=== PATIENT | female | born 1980 ===

== ENCOUNTER 2024-06-22 06:25 | Emergency (ER) | payer OTHER, SELFPAY ==
--- NOTE | ~2024-06-22 | XR_ITS ---
EXAMINATION: XR CHEST CLINICAL INFORMATION: cough COMPARISON: None available. TECHNIQUE: 2 views of the chest were obtained. FINDINGS: No consolidation, pleural effusion or pneumothorax. Cardiomediastinal silhouette is normal. Osseous structures are intact. XR/XR chest 2V IMPRESSION: No acute airspace disease. Electronically signed by: Papo Juarez MD 06/22/2024 08:06 AM [facility]
[2024-06-22 06:43] VITALS: BP 140/82; PULSE 105; O2SAT 95
--- NOTE | 2024-06-22 06:49 | MHC.EDTECH ---
Belligerent with all staff at [facility], Mary Elizalde & Sarah Zhu
[2024-06-22 06:57] VITALS: BP 123/84; PULSE 74; RESP 18; TEMP 36.4; O2SAT 97; BMI 35.2
--- NOTE | 2024-06-22 07:19 | ED_ITS ---
HPI - General Adult General Chief complaint: General Medical Stated complaint: A&O, n/v, dizzy, migrane x3days 10 pain Time Seen by Provider: 06/22/24 07:19 History of Present Illness ED Provider: Mehrdad MENENDEZ narrative: The patient is a 43-year-old woman who was brought to the hospital by ambulance from a [facility]. She says that she has a history of PTSD and had presented to a hospital in [place] of couple of weeks ago with an exacerbation of her mental health issues. Arrangements were made for her to stay at this [facility] which I believe is not a locked facility. Over the last couple of days the patient says that she has not been getting her medications in a timely fashion. She has also been concerned that there has been a lot of people at the facility who has been sick and she is worried about getting sick. Ultimately the facility called an ambulance this morning to send her to the emergency room. After arriving here the patient was quite agitated and upset and came very close to walking out. Initially she denied any suicidality. She later returned to her room from the waiting room stating that she felt that she was about to have a panic attack and that she was beginning to feel suicidal. The patient says she has not done anything to harm herself to this point. Related Data Home Medications ?Medication ?Instructions ?Recorded ?Confirmed tanja extract 500 mg capsule 500 mg PO DAILY 06/22/24 06/22/24 melatonin 1 mg tablet 6 mg PO BEDTIME 06/22/24 06/22/24 pantoprazole 40 mg tablet,delayed 40 mg PO DAILY acid reflux 06/22/24 06/22/24 release prazosin 2 mg capsule 2 mg PO BEDTIME 06/22/24 06/22/24 quetiapine 100 mg tablet 100 mg PO BEDTIME 06/22/24 06/22/24 quetiapine 50 mg tablet 50 mg PO TID PRN Anxiety 06/22/24 06/22/24 venlafaxine 150 mg 300 mg PO DAILY 06/22/24 06/22/24 capsule,extended release 24 hr Allergies Allergy/AdvReac Type Severity Reaction Status Date / Time ibuprofen Allergy Unknown Verified 06/22/24 06:58 naproxen Allergy Unknown Verified 06/22/24 06:58 Review of Systems 2 Review of Systems: Yes all other systems are reviewed and are negative PMFSH Social History Social History Alcohol intake: former Smoked in Last 30 Days: No Use of substances other than those prescribed or required for medical reasons: No Advance Directives: No Advance Directives Information Provided: Yes Do you have a plan to hurt others: No Plan Patient : No Physical Exam ED Vital Signs: Vital Signs - 24 hr 06/22/24 06:57 06/22/24 09:03 Temperature 97.5 F 97.5 F Pulse Rate 74 74 Respiratory Rate 18 18 Blood Pressure 123/84 123/84 Pulse Oximetry 97 97 Oxygen Delivery Method Room Air Room Air BMI result Body Mass Index 35.2 Const Other: The patient was awake and alert. She seemed somewhat angry and upset but she did not seem in any physical distress. She does not seem agitated or disoriented. HENMT Other: Face was symmetrical. Mucous membranes were moist. Eyes Other: Pupils are round equal, conjunctivae were clear Neck Other: She seemed to be moving her neck easily. Resp Other: Respiratory effort was normal Neuro Other: The patient was awake and alert. Her speech was clear. Her face was symmetrical. She moves her extremities normally and appropriately. She had a steady gait. She seemed neurologically intact. Extrem Other: No peripheral edema Psych Other: The patient seemed somewhat labile. She varied between an agitated state and an apologetic state. She was intermittently tearful. Medications Administered Discontinued Medications Generic Name Dose Route Start Last Admin Trade Name Christianoq PRN Reason Stop Dose Admin Acetaminophen 650 mg 06/22/24 08:08 06/22/24 08:09 Acetaminophen 325 Mg Tablet PO 06/22/24 08:09 650 mg ONCE ONE Administration Lorazepam 1 mg 06/22/24 08:49 06/22/24 08:59 Lorazepam 1 Mg Tablet PO 06/22/24 08:50 1 mg ONCE ONE Administration Venlafaxine HCl 300 mg 06/22/24 07:38 06/22/24 08:09 Venlafaxine Hcl Er 150 Mg Cap.Er.24h PO 06/22/24 07:39 300 mg ONCE ONE Administration Medical Decision Making Medical Decision Making [facility] Narrative: The patient is a 43-year-old woman who was brought to the hospital by ambulance from a respite facility. She has been sent to the respite facility from [facility] in [facility]. She does not seem to be having a good experience this respite facility. When she arrived here she initially was quite agitated and walked out as if she was going to leave without a full evaluation but she then felt panicky in the waiting room and returned to her room. She seemed upset and agitated. She was able to calm herself down. She is medically clear. She was placed in our psychiatric area and a care team consult was placed. She was seen by the care team who feels that she probably requires ongoing respite care and they are making referrals to other respite facilities. The patient will therefore be placed in physician observation pending disposition recommendations by the care team. Lab Data 06/22/24 08:15 06/22/24 08:15 Labs: Lab Results 06/22/24 06/22/24 Range/Units 08:15 10:08 WBC 6.9 (4.8-10.8) X10*3/uL RBC 4.39 (4.20-5.50) X10*6/uL Hgb 13.6 (12.0-16.0) g/dl Hct 39.7 (37.0-47.0) % MCV 90.4 (80.0-98.0) fL MCH 31.0 (27.0-33.0) pg MCHC 34.3 (31.0-35.0) g/dl RDW 12.6 (11.0-16.0) % Plt Count 349 (160-400) X10*3/uL MPV 9.1 L (9.4-12.3) fL Immature Gran % (Auto) 0.4 (0.0-0.4) % Neut % (Auto) 44.7 L (45-73) % Lymph % (Auto) 37.7 (20-40) % Price % (Auto) 13.7 H (2-11) % Eos % (Auto) 2.6 (0-4) % Baso % (Auto) 0.9 (0-2) % Lymph # (Auto) 2.6 (1.2-4.9) X10*3/uL Price # (Auto) 1.0 (0.1-1.2) X10*3/uL Eos # (Auto) 0.2 (0.0-0.4) X10*3/uL Baso # (Auto) 0.1 (0.0-0.2) X10*3/uL Abs Immat Gran (auto) 0.03 (0.00-0.03) X10*3/uL Absolute Neuts (auto) 3.1 (2.0-8.3) x10*3/uL Absolute Nucleated RBC 0.000 (0.0-0.012) X10*3/uL Nucleated RBC % (auto) 0.0 (0.0-0.2) /100WBC Sodium 137 (135-145) mmol/L Potassium 4.0 (3.3-5.1) mmol/L Chloride 106 (96-108) mmol/L Carbon Dioxide 23 (22-29) mmol/L Anion Gap 12 (12-20) BUN 9 (9-16) mg/dL Creatinine 0.63 (0.5-1.4) mg/dL Estim Creat Clear Calc 109.0 Estimated GFR > 60 Random Glucose 103 (60-115) mg/dL Calcium 9.5 (8.4-10.2) mg/dL Total Bilirubin 0.4 (0.0-1.0) mg/dL Direct Bilirubin 0.1 (0.0-0.5) mg/dL AST 20 (5-31) U/L ALT 16 (0-31) U/L Alkaline Phosphatase 74 (39-117) U/L C-Reactive Protein 0.16 (< or = 0.50) mg/dL Total Protein 7.1 (6.5-8.0) g/dL Albumin 4.3 (3.5-5.0) g/dL Beta HCG, Quant < 2 mIU/mL Urine Color Yellow Urine Appearance Clear Urine pH 8.5 (5.0-9.0) Ur Specific [place] 1.025 (1.005-1.025) Urine Protein Trace (Neg-Trace) mg/dL Urine Glucose (UA) Negative (Negative) mg/dL Urine Ketones Negative (Negative) mg/dL Urine Blood Negative (Negative) Urine Nitrite Negative (Negative) Ur Leukocyte Esterase Negative (Negative) Urine Opiates Screen Not Detected (Not Detect) Ur Buprenorphine Scrn Not Detected (Not Detect) ng/mL Ur Oxycodone Screen Not Detected (Not Detect) ng/mL Urine Methadone Screen Not Detected (Not Detect) ng/mL Urine Fentanyl Screen Not Detected (Not Detect) Ur Barbiturates Screen Not Detected (Not Detect) Ur Phencyclidine Scrn Not Detected (Not Detect) Ur Amphetamines Screen Not Detected (Not Detect) U Benzodiazepines Scrn Not Detected (Not Detect) Urine Cocaine Screen Not Detected (Not Detect) U Marijuana (THC) Screen Not Detected (Not Detect) Ethyl Alcohol < 10 mg/dL Influenza Type A (PCR) NEGATIVE (Negative) Influenza Type B (PCR) NEGATIVE (Negative) RSV RNA Qual (PCR) NEGATIVE (Negative) SARS-CoV-2 RNA (RT-PCR) NEGATIVE (Negative) Discharge Plan Discharge Clinical Impression: Post traumatic stress disorder (PTSD) Patient Disposition: Still a Patient Prescriptions: No Action venlafaxine 150 mg capsule,extended release 24hr 300 mg PO DAILY quetiapine 100 mg Tablet 100 mg PO BEDTIME pantoprazole 40 mg tablet,delayed release (DR/EC) 40 mg PO DAILY prazosin 2 mg capsule 2 mg PO BEDTIME melatonin 1 mg Tablet 6 mg PO BEDTIME quetiapine 50 mg tablet 50 mg PO TID PRN (Reason: Anxiety) tanja extract 500 mg Capsule 500 mg PO DAILY Print Language: Bengali
--- NOTE | 2024-06-22 07:25 | PC.NURSE ---
Pt recieved phone call from [facility] that she is being discharged. She became upset while on the phone, swearing and shouting. Was met by and declared that she needed to go. Left with a steady gait, unlabored resp, skin PWD. Denied SI.
--- NOTE | 2024-06-22 07:44 | PC.NURSE ---
Pt is back in the room, calmer, on the phone.
[2024-06-22] MEDS: Acetaminophen 325 MG TABLET 650 MG PO (08:09)
[2024-06-22] MEDS: Venlafaxine HCl ER 150 MG CAP.ER.24H 300 MG PO (08:09)
[2024-06-22 08:21] LABS: MANUAL DIFF FLAG NO
[2024-06-22 08:24] LABS: Appearance Urine Clear; Basophils Absolute Auto 0.1 X10*3/uL (0.0-0.2); Basophils Percent Auto 0.9 % (0-2); Color Urine Yellow; Eosinophils Absolute Auto 0.2 X10*3/uL (0.0-0.4); Eosinophils Percent Auto 2.6 % (0-4); Glucose Urine UA Negative (Negative); Hematocrit 39.7 % (37.0-47.0); Hemoglobin 13.6 g/dl (12.0-16.0); Imm Gran Abs Auto 0.03 X10*3/uL (0.00-0.03); Imm Gran Pct Auto 0.4 % (0.0-0.4); Leukocyte Esterase Urine Negative (Negative); Lymphocytes Absolute Auto 2.6 X10*3/uL (1.2-4.9); Lymphocytes Percent Auto 37.7 % (20-40); Mean Corpuscular HGB Conc 34.3 g/dl (31.0-35.0); Mean Corpuscular Volume 90.4 fL (80.0-98.0); Mean Platelet Volume 9.1 fL (9.4-12.3); Monocytes Percent Auto 13.7 % (2-11); Neutrophils Absolute Auto 3.1 x10*3/uL (2.0-8.3); Neutrophils Percent Auto 44.7 % (45-73); Nitrite Urine Negative (Negative); PH 8.5 (5.0-9.0); Platelet Count 349 X10*3/uL (160-400); Red Blood Count 4.39 X10*6/uL (4.20-5.50); Red Cell Distribution Width 12.6 % (11.0-16.0); Specific Gravity - Urine 1.025 (1.005-1.025); Urine Blood Negative (Negative); Urine Ketones Negative (Negative); Urine Protein Trace mg/dL (Neg-Trace); White Blood Count 6.9 X10*3/uL (4.8-10.8)
[2024-06-22 08:34] LABS: Amphetamine Screen Urine Not Detected (Not Detect); Barbiturates, Urine Not Detected (Not Detect); Benzodiazepines Screen Urine Not Detected (Not Detect); Buprenorphine Scr Not Detected (Not Detect); Cannabinoid Screen Urine Not Detected (Not Detect); Cocaine Screen Urine Not Detected (Not Detect); Fentanyl, urine Not Detected (Not Detect); Methadone Screen, Urine Not Detected (Not Detect); Opiate Screen Urine Not Detected (Not Detect); Oxycodone Screen Urine Not Detected (Not Detect); Phencyclidine Screen Urine Not Detected (Not Detect)
[2024-06-22 08:46] LABS: Alanine Aminotransferase 16 U/L (0-31); Albumin Level 4.3 g/dL (3.5-5.0); Alkaline Phosphatase 74 U/L (39-117); Anion Gap 12 (12-20); Aspartate Amino Transferase 20 U/L (5-31); Bilirubin Direct 0.1 mg/dL (0.0-0.5); Bilirubin Total 0.4 mg/dL (0.0-1.0); Blood Urea Nitrogen 9 mg/dL (9-16); C Reactive Protein 0.16 mg/dL (< or = 0.50); Calcium 9.5 mg/dL (8.4-10.2); Carbon Dioxide 23 mmol/L (22-29); Chloride 106 mmol/L (96-108); Estimated Glomerular Filt Rate > 60; Ethanol < 10 mg/dL; Glucose Random 103 mg/dL (60-115); HCG Quantitative < 2 mIU/mL; Sodium 137 mmol/L (135-145); Total Protein 7.1 g/dL (6.5-8.0)
--- NOTE | 2024-06-22 08:53 | PC.NURSE ---
Pt is now endorsing SI. states I'm spiraling downward . No plan. Is aware that we will follow safety protocols.
[2024-06-22] MEDS: LORazepam 1 MG TABLET PO (08:59)
--- NOTE | 2024-06-22 09:01 | MHC.CARE ---
Per provider, Pt is not from this area originally and has been residing in a [facility] substance use program. She reported she was not receiving her medications on time and had a disagreement with staff causing her to transport to the ED EMS. Initially Pt was attempting to walk out of the ED and when she was in the waiting room had a panic attack and came back into the ED. She then endorsed SI. HX of PTSD. 6 months sober from alcohol.
[2024-06-22 09:03] VITALS: BP 123/84; PULSE 74; RESP 18; TEMP 36.4; O2SAT 97
--- NOTE | 2024-06-22 09:49 | PC.NURSE ---
Pt has been talking with care team staff and therefore not moved to the pod. has been calm.
[2024-06-22 10:52] LABS: Influenza A PCR NEGATIVE (Negative); Influenza B PCR NEGATIVE (Negative); Resp Syncy Virus RNA Qual PCR NEGATIVE (Negative); SARS COV2 PCR INHOUSE NEGATIVE (Negative)
[2024-06-22] MEDS: QUEtiapine Fumarate 50 MG TABLET PO ×2 (14:08→19:18)
--- NOTE | 2024-06-22 14:15 | PC.NURSE ---
pt reporting increased anxiousness, medicated with PRN Seroquel per MAR
[2024-06-22] MEDS: Nicotine 21 MG PATCH.TD24 TRANSDERMA (14:38)
[2024-06-22 17:45] VITALS: BP 130/88; PULSE 89; RESP 18; TEMP 36.8; O2SAT 98
--- NOTE | 2024-06-22 18:58 | PC.NURSE ---
patient appears to remain at rest p[resently respirations are even and unlabored patient appears in no distress.
[2024-06-22 22:15] VITALS: BP 130/88
[2024-06-22] MEDS: Prazosin HCL 1 MG CAPSULE 2 MG PO (22:15)
[2024-06-22] MEDS: QUEtiapine Fumarate 100 MG TABLET PO (22:15)
[2024-06-22] MEDS: Melatonin 3 MG TABLET 6 MG PO (22:15)
--- NOTE | 2024-06-22 23:51 | MHC.CARE ---
Pt was accepted to [facility] on 06/23/24. [facility] informed the Care Team that they will call the care team office in the morning to facilitate a nurse to nurse and a time they can arrive to unit once nurse to nurse is completed. Information was passed to first shift care team staff and if [facility] has not followed up first thing in the morning the Care Team will follow up with [facility] to set up a time for a nurse to nurse and obtain further information about what time they can arrive to the unit once nurse to nurse completed. RN in pod informed. Further follow up will occur as needed moving forward.
[2024-06-23] MEDS: QUEtiapine Fumarate 50 MG TABLET PO (08:08)
[2024-06-23] MEDS: Omeprazole 20 MG CAPSULE.DR PO (08:08)
--- NOTE | 2024-06-23 08:12 | PC.NURSE ---
Pt approached RN for anxiety medication. Still endorses vague SI (no plan). Is calm/cooperative. Ate breakfast. NAD
[2024-06-23 08:41] VITALS: BP 93/60; PULSE 100; RESP 19; TEMP 37.2; O2SAT 100
[2024-06-23] MEDS: Venlafaxine HCl ER 150 MG CAP.ER.24H 300 MG PO (09:23)
--- NOTE | 2024-06-23 10:00 | PHA.MEDREC ---
Addendum entered by Haydee Verdugo RPh 06/23/24 12:53: Med rec was reviewed. Original Note: Pharmacy Consult ? Medication Reconciliation Pharmacy has completed the medication reconciliation. Called [facility] to confirm medications, they would not given the directions of her medications, only the names and doses. They told me to call the pharmacy that they get delivered from ([facility]) but they do not know which [place] location it is. There is only one [place] open on Saturdays which is not the one that delivers her meds, and their systems are not connected. Patient came in with a hand written list of her meds but I cannot confirm where this came from. Some of the medications were entered in her home list wrong and given. I changed them to the ones [facility] reported to me and is on the hand written list. She also takes ashwagandha and tanja root, doses are unknown. She also uses nicotine patches (confirmed by nurse Jesusita), [facility] reports 21 mg.
[2024-06-23] MEDS: Acetaminophen 325 MG TABLET 650 MG PO ×2 (10:08→16:39)
[2024-06-23] MEDS: Lidocaine 4 % Patch ADH..PATCH 1 PATCH TRANSDERMA (11:01)
--- NOTE | 2024-06-23 11:06 | PC.NURSE ---
Liz from [facility] respite program in [place] states that if patient is transferred then all Rx need to be sent to [facility] marisol Farfan.
[2024-06-23 14:00] VITALS: BP 92/47; PULSE 87; RESP 16; TEMP 36.8; O2SAT 95
--- NOTE | 2024-06-23 16:48 | MHC.CARE ---
Pt accepted to [facility] and will be transported via [facility] to [facility] to pick-up medications and then transported to [facility].
[2024-06-23 17:35] VITALS: BP 92/47; PULSE 87; RESP 16; TEMP 36.8; O2SAT 95
== END 2024-06-23 17:36 | disposition other institution (70) ==
PROVIDERS: Emergency Provider Emergency Medicine; PCP Family Medicine
DX: F43.10 Post-traumatic stress disorder, unspecified (principal); R45.1 Restlessness and agitation; Z03.818 Encounter for observation for suspected exposure to other biological agents ruled out; R05.9 Cough, unspecified; Z79.899 Other long term (current) drug therapy
CPT/HCPCS: 0241U; 36415; 71046; 80048; 80076; 80307; 81003; 84702; 85025; 86140; 99285; S9485

== ENCOUNTER → 2024-06-22 07:42 | Outpatient (BNV) | payer OTHER, SELFPAY | PROVIDERS: Emergency Provider Emergency Medicine; PCP Family Medicine; Visit Provider Radiology Diagnostic Radiology | DX: R05.9 Cough, unspecified (principal) | CPT/HCPCS: 71046 ==

== ENCOUNTER 2024-09-17 09:11 | Emergency (ER) | payer MEDICAID, SELFPAY ==
[2024-09-17 09:16] VITALS: BP 110/83; PULSE 90; O2SAT 96
[2024-09-17 09:21] VITALS: BP 97/56; PULSE 95; RESP 18; TEMP 36.6; O2SAT 98; BMI 36.7
[2024-09-17 09:29] VITALS: BP 97/56; PULSE 95; RESP 18; TEMP 36.6; O2SAT 98
--- NOTE | 2024-09-17 09:39 | ED_ITS ---
HPI - Medical Clearance General Chief complaint: Medical Clearance Stated complaint: RAN OUT OF MEDS Time Seen by Provider: 09/17/24 09:25 Source: patient, EMS, RN notes reviewed and old records reviewed Mode of arrival: EMS Limitations: no limitations History of Present Illness ED Provider: Leonard HPI Narrative: Patient is a 44-year-old female with history of PTSD, ADHD, alcohol use disorder in remission presenting to the ED from [facility] stating that her Adderall and amphetamine salts were not refilled by the psychiatrist there. She reports difficulty focusing during group activities, and is afraid she will become agitated if she goes without her medications for much longer. Denies any current physical complaints. Related Information Home Medications ?Medication ?Instructions ?Recorded ?Confirmed tanja extract 500 mg capsule 500 mg PO DAILY 06/22/24 06/22/24 quetiapine 100 mg tablet 100 mg PO BEDTIME 06/22/24 06/22/24 quetiapine 50 mg tablet 50 mg PO TID PRN Anxiety 06/22/24 06/22/24 venlafaxine 150 mg 300 mg PO DAILY 06/22/24 06/22/24 capsule,extended release 24 hr melatonin 3 mg tablet 6 mg PO BEDTIME 06/23/24 06/23/24 nicotine 21 mg/24 hr daily 1 patch transdermal DAILY 06/23/24 06/23/24 transdermal patch pantoprazole 20 mg tablet,delayed 20 mg PO DAILY 06/23/24 06/23/24 release prazosin 1 mg capsule 1 mg PO BEDTIME 06/23/24 06/23/24 Previous Rx's ?Medication ?Instructions ?Recorded dextroamphetamine-amphetamine ER 20 mg PO .noon #7 caps 09/17/24 20 mg 24hr capsule,extend release (Adderall XR) dextroamphetamine-amphetamine ER 30 mg PO QAM #7 caps 09/17/24 30 mg 24hr capsule,extend release (Adderall XR) Allergies Allergy/AdvReac Type Severity Reaction Status Date / Time ibuprofen Allergy Unknown Verified 09/17/24 09:28 naproxen Allergy Unknown Verified 09/17/24 09:28 Review of Systems Review of Systems: As per HPI Yes all other systems are reviewed and are negative Constitutional: Constitutional: Reports as per HPI PMFSH Social History Social History Alcohol intake: former Advance Directives: No Advance Directives Information Provided: No Do you have a plan to hurt others: No Plan Physical Exam Vital Signs: Vital Signs: Last Vital Signs Temp 98 F 09/17/24 09:29 Pulse 95 09/17/24 09:29 Resp 18 09/17/24 09:29 BP 97/56 L 09/17/24 09:29 Pulse Ox 98 09/17/24 09:29 O2 Del Method Room Air 09/17/24 09:29 BMI result Body Mass Index 36.7 Vital signs have been reviewed and appear to be correct. Blood pressure normal. Heart rate normal. Respiratory rate normal. Temperature normal. Oxygen saturation normal. Const: General: cooperative, healthy appearing and no acute distress Orientation/consciousness: oriented to person, oriented to place, oriented to time and patient oriented x3 Limitations: no limitations HEENT: Head: Yes normocephalic and Yes atraumatic Ears: external ears normal General nose exam: Normal external nose present Face and sinus: Yes face symmetric Mouth: oropharynx normal and moist mucous membranes Throat: Yes uvula midline Eyes: Pupils: Equal, round and reactive pupils present Neck: Neck: Yes normal visual inspection and Yes supple Resp: Effort & Inspection: normal respiratory effort and able to speak in complete sentences Auscultation: clear to auscultation bilaterally Cardio: Rate: regular rate Rhythm: regular rhythm Heart sounds: S1 normal heart sound present and S2 normal heart sound present GI: Palpation (GI): Soft to palpation and nontender Auscultation: no rmoactive bowel sounds : General: Yes no CVA tenderness Back/Spine/Pelvis: Back: no CVA tenderness Skin: General skin exam: elasticity normal and turgor normal Neuro: General: oriented to person, oriented to place, oriented to time, patient oriented x3, moves all extremities, no focal motor deficits and CN's II- XI intact bilaterally Cranial nerves: Yes Equal, round and reactive pupils present Cognition (Neuro): normal cognition Extrem: General: Yes full ROM, Yes no pedal edema and Yes no calf tenderness Psych: Mental Status: mental status grossly normal Affect: normal affect Thought process: Normal thought process present Medical Decision Making Medical Decision Making MDM Narrative: Patient is a 44-year-old female with history of PTSD, ADHD, alcohol use disorder in remission presenting to the ED from [facility] stating that her Adderall and amphetamine salts were not refilled by the psychiatrist there. On exam patient is awake, A+Ox3, VS WNL, afebrile, normal neurological exam without focal deficits, physical exam findings as above. Given reported symptoms and physical exam findings, initial differential includes but is not limited to ADHD, medication refill. Review of REHAB DIRECTOR report shows that patient has been consistently prescribed Adderall for the past few months. Will medicate in the ED and send prescription for one week to pharmacy. Discussed with patient that she will need to speak to the psychiatrist at [facility] to continue her pre scription. Patient verbalized understanding of and agreement with this. Return precautions discussed. Patient verbalized understanding of and agreement with plan. Differential Diagnosis Differential Diagnoses: The differential diagnosis associated with the presentation includes As per [facility] External Record Review External record reviewed: Inpatient record, Office record and Outpatient record Prescription Management I considered prescription management with: Other Discharge Plan Discharge Clinical Impression: ADHD Patient Disposition: Home, Self-Care Instructions: ADHD in Adults (DC) Additional Instructions: You were given your am dose of Adderall in the emergency department today. A prescription for your regularly prescribed Adderall was sent to the pharmacy for a one week supply. Discuss this with your psychiatrist to continue the prescription at [facility]. Return to the emergency department with new or concerning symptoms. Prescriptions: New dextroamphetamine-amphetamine [Adderall XR] 30 mg capsule,extended release 24hr 30 mg PO QAM Qty: 7 0RF Rx Instructions: Partial Fill upon patient request. dextroamphetamine-amphetamine [Adderall XR] 20 mg capsule,extended release 24hr 20 mg PO .noon Qty: 7 0RF Rx Instructions: Partial Fill upon patient request. No Action venlafaxine 150 mg capsule,extended release 24hr 300 mg PO DAILY quetiapine 100 mg Tablet 100 mg PO BEDTIME quetiapine 50 mg tablet 50 mg PO TID PRN (Reason: Anxiety) tanja extract 500 mg Capsule 500 mg PO DAILY melatonin 3 mg Tablet 6 mg PO BEDTIME prazosin 1 mg Capsule 1 mg PO BEDTIME pantoprazole 20 mg Tablet,Delayed Release (Dr/Ec) 20 mg PO DAILY nicotine 21 mg/24 hr Patch 24 Hour 1 patch TRANSDERMAL DAILY Print Language: Citizen [place]
--- OUTSIDE RECORDS SUMMARY | 2024-09-17 09:52 | XMS_ITS | Encounter Summary ---
Author Organization [facility] Address [phone] [place] [address] Care Team Providers Care [facility] Psychiatrist Name Role Phone Pcp, Unknown Primary Care Provider Unavailabl e Reason for Referral * Outpatient Procedure - Closed Specialty Diagnoses / Procedures Referred By Contac t Referred To Contact Radiology Diagnoses Endometriosis Pelvic pain Procedures US Pelvis Armida Londono MD [address] [place] [address], [address] [address] Email: [email or web address] Referral ID Status Reason Start Date Expiration Date Visits Re quested Visits Authorized [id number] Closed 09/07/2024 1 1 Reason for Visit * Reason Comments New Patient Encounter Details Date Type Department Care Team (Late st Contact Info) Description 09/07/2024 2:00 PM EST Office Visit [facility] [address] [place] [id number] Armida Londono MD [address] [place] [address], [address] [phone] [email or web address] Pelvic pain (Primary Dx); Breast cancer screening by mammogram; Endometriosis Social History Tobacco Use Types Packs/Day Years Used Date Smoking Tobacco: Former Cigarettes Passive Smoke Exposure: Current Tobacco Cessation:Counseling Given: Not Answered Education Answer Date Recorded Are you interested in more education? Not on lenny e 08/07/2024 Are you concerned about learning? Not on file 08/07/2024 No 08/07/2024 No 08/07/2024 Digital Access Answer Date Recorded No 08/07/2024 No 08/07/2024 Reliable internet access at home? Not on file 08/07/2024 Device with a working camera? Not on file Sex and Gender Information Value Date Recorded Sex Assigned at Not on file Gender Identity Not on file Sexual Orientation Not on file documented as of this encounter Last Filed Vital Signs Vital Sign Reading Time Taken Comments Blood Pressure 120/72 09/07/2024 1:58 PM EST Pulse - - Temperature - - Respiratory Rate - - Oxygen Saturation - - Inhaled Oxygen Concentration - - Weight 85.6 kg (188 lb 12.8 oz) 09/07/2024 1:58 PM EST Height - - Body Mass Index - - documented in this encounter Progress Notes * Armida Londono MD - 09/07/2024 2:00 PM EST Encounter Date: 09/07/2024 Chief Complaint: Chief Complaint Patient presents with New Patient Subjective: Maia San is a 43 y.o. who presents to establish [employer]IL[employer] care. Patient with a history of chronic pelvic pain and endometriosis. Medical History Patient Active Problem List Diagnosis Endometriosis Pelvic pain Past Medical History: Diagnosis Date Endometriosis Fibroids Iron deficiency anemia PTSD (post-traumatic stress disorder) Past Surgical History: Procedure Laterality Date APPENDECTOMY LAPAROTOMY 2014 LAPAROTOMY 2017 Social History Socioeconomic History Marital status: Single Spouse name: Not on file Number of children: Not on file Years of education: Not on file Highest education level: Not on file Occupational History Not on file Tobacco Use Smoking status: Former Types: Cigarettes Passive exposure: Current Smokeless tobacco: Not on file Vaping Use Vaping status: never used Substance and Sexual Activity Alcohol use: Not on file Drug use: Never Sexual activity: Yes Partners: Male control/protection: None Other Topics Concern Not on file Social History Narrative Not on file OB History Para Term AB Living 9 8 1 SAB IAB Ectopic Multiple Live Births 6 1 # Outcome Date GA Lbr Austyn/2nd Weight Sex Type Anes PTL Lv 9 AB 8 AB 7 Vag-Spont ALEJANDRO 6 SAB 5 SAB 4 SAB 3 SAB 2 SAB 1 SAB Menstrual History No LMP recorded (lmp unknown). Patient is premenopausal. Current Outpatient Medications: ADDERALL XR 20 mg 24 hr capsule, Take 20 mg by mouth 2 (two) times a day., Disp: , Rfl: , Last Dispense: Unknown (patient-reported) ADDERALL XR 30 mg 24 hr capsule, , Disp: , Rfl: , Last Dispense: Unknown (patient-reported) norethindrone (MICRONOR) 0.35 mg tablet, Take 0.35 mg by mouth., Disp: , Rfl: , Last Dispense: Unknown (patient-reported) OLANZapine (ZYPREXA) 10 MG tablet, , Disp: , Rfl: , Last Dispense: Unknown (patient-reported) prazosin (MINIPRESS) 2 MG capsule, , Disp: , Rfl: , Last Dispense: Unknown (patient-reported) traMADoL (ULTRAM) 50 mg tablet, Take 1 tablet every 6 hours by oral route for 10 days., Disp: , Rfl: , Last Dispense: Unknown (patient-reported) venlafaxine (EFFEXOR-XR) 150 MG 24 hr capsule, , Disp: , Rfl: , Last Dispense: Unknown (patient-reported) Allergies Allergen Reactions Ibuprofen Nausea And Vomiting Naproxen Nausea And Vomiting Objective: BP 120/72 Wt 85.6 kg (188 lb 12.8 oz) LMP (LMP Unknown) Gen: Alert, cooperative. Well-appearing on today's exam Assessment/Plan: 43 y.o. with: Problem List Items Addressed This Visit Endometriosis Current Assessment & Plan Patient with history of laparoscopy proven stage 1 endometriosis Patient's last pelvic US was done in 2022 and showed a 1 cm fibroid Prior imaging and [employer] records reviewed Patient requests US to follow up on fibroid/endometriosis and pelvic pain Patient will return for follow up at annual [employer] exam Relevant Orders US Pelvis Pelvic pain Relevant Orders US Pelvis Other Visit Diagnoses Breast cancer screening by mammogram Relevant Orders Mammogram Screening (Bilateral) Return for Annual physical. Armida Londono MD documented in this encounter Miscellaneous Notes * Assessment & Plan Note - Armida Londono MD - 09/07/2024 2:30 PM ESTAssociated Problem(s): Endometriosis Patient with history of laparoscopy proven stage 1 endometriosis Patient's last pelvic US was done in 2022 and showed a 1 cm fibroid Prior imaging and [employer] records reviewed Patient requests US to follow up on fibroid/endometriosis and pelvic pain Patient will return for follow up at annual [employer] exam documented in this encounter Plan of Treatment Upcoming Encounters Date Type Department Care Team (Late st Contact Info) Description 09/07/2024 Procedure Pass [address] [place] [address] 10/16/2024 11:30 AM EDT Appointment [facility] [place] [address] [place] [address] Armida Londono MD [address] [place] [address], [address] [place] [id number] [email or web address] 10/16/2024 12:30 PM EDT Office Visit [facility] [address] [place] [address] [place] [address] Armida Londono MD [address] [place] [address], [address] [place] [address] [email or web address] 03/01/2025 1:00 PM EDT Office Visit [facility] [address] [place] [address] Anila Prescott MD [address] [place] [address] [address] [place] [address] [email or web address] 03/08/2025 12:45 PM EDT Appointment [address] [place] [address] Armida Londono MD [address] [place] [address], [address] [place] [address] [email or web address] Scheduled Orders Name Type Priority Associated Diagnoses Orde r Schedule Mammogram Screening (Bilateral) Imaging Routine Breast cancer screening by mammogram Expected: 09/07/2024, Expires: 09/07/2025 US Pelvis Imaging Routine Endometriosis Pelvic pain Expected: 09/07/2024, Expires: 12/05/2024 documented as of this encounter Visit Diagnoses Diagnosis Pelvic pain- Primary Breast cancer screening by mammogram Endometriosis Endometriosis, site unspecified documented in this encounter Care Teams [facility] Facility Psychiatrist Relationship Specialty Start Date End Date Pcp, Unknown PCP - General 08/07/24 documented as of this encounter Additional Source Comments The information contained in this document represents components of the legal health record. It is not the complete legal health record.[facility]
--- OUTSIDE RECORDS SUMMARY | 2024-09-17 09:52 | XMS_ITS | Continuity of Care Document ---
Author Organization [facility] Address [address] [address] Phone Care Team Providers Care Service Desk Analyst Name Role Phone YiJudit Hodo Unavailable Unavailab le Allergies, Adverse Reactions, Alerts Substance Reaction Status Criticality NSAIDS (Non-Steroidal Anti-I nflammatory Drug) Gastrointestinal ulcer Active No Information Medications Medication Instructions Dosage Effective Dates (start - stop) Status Comments nicotine 21 mg/24 hr daily transdermal patch apply 1 patch by transdermal route every day and remove at bedtime 21 MG - Active venlafaxine ER 75 mg capsule,extended release 24 hr take 1 capsule by oral route every day with food 75 MG - Active quetiapine 100 mg tablet take 1 tablet by oral route every day 100 MG - Active oxycodone 10 mg tablet take 1 tablet by oral route QID - Active Adderall XR 30 mg capsule,extended release take 1 capsule by oral route every day in the morning upon awakening 30 MG - Active baclofen 10 mg tablet take 1 tablet by o ral route 3 times every day 10 MG - Active tanja extract 500 mg capsule 1 capsule daily - Active Procedures Procedure Date PREV VISIT NEW AGE 40-64 Advance Directives Directive Yes / No Effective Date File Name No Information Encounters Encounter Description Practice Location Reason(s) For Visit Diagnoses Date Provider Providers Copied on Encounter [facility], [address], [id number], tel:[phone] [facility] No Information 2 OZafar Spain. [address] [place] [address], [id number] , [place]. tel:[phone] PREV VISIT NEW AGE 40-64 [facility] [place], [facility], [place], [place], [id number], [place] tel:[phone] [facility] Preventive exam (chief complaint) SmokingIron deficiency anemia due to chronic blood lossScreening for diabetes mellitusAttention deficit hyperactivity disorder (ADHD), predominantly hyperactive typeScreening mammogram for breast cancerMixed anxiety and depressive disorderNeuropath yEncounter for routine adult health examination without abnormal findings 2 O'Hagan Judit. [address] [place] [address], [place], [place], [id number] , [place]. tel:[phone] Family History Family Member Type Diagnosis Age At Onset Maternal grandmother Problem Heart disease Sister Problem (finding) Father Problem (finding) Sister Problem Alive and well Paternal grandmother Problem Dementia Mother Problem (finding) Payers Payer name Insurance type Covered green party ID Authoriza tion(s) No Information Social History Type Description Quantity Date Captured Comments Sex Female Smoking Status No Information Gender Identity Female Chief Complaint And Reason For Visit No Information Reason For Referral Reason For Referral No Information Plan Of Treatment Date Type Action Status Goal Tobacco cessation counseling completed Referral Ordered: Radiology -Radiotherapy (related to Screening mammogram for breast cancer) ordered Referral Referred To: Radiology Ordered: Referrals: Radiotherapy. Radiology ordered Future Order: Radiology Order Ma mmogram (Screen); Bilat, 2-view study of each breast, incl computer-aided detection when performed ([id number]), Ordered on: Ordered Future Order: Lab Order BASIC ME TABOLIC PANEL ([id number]), Sent on: Sent Future Order: Lab Order CBC (INC LUDES DIFF/PLT) ([id number]), Sent on: Sent Future Order: Lab Order HEMOGLOB IN A1C ([id number]), Sent on: Sent Future Order: Lab Order VITAMIN D,25-OH,TOTAL,IA ([id number]), Collected on: , Sent on: Sent History Of Present Illness Encounter Date Complaint History Of Prese nt Illness Preventive exam : 9. Rosalie ty: Term: 1. induced: 4. spontaneous: 4. Negative for dysmenorrhea and menorrhagia. Negative for: breast discharge, breast lump(s) and breast pain. Positive for: breast self exam.The client is not post-menopausal. Negative for Hormone replacement therapy. Menopausal symptoms negative for: hot flashes, insomnia, night sweats and vaginal dryness. There are no associated symptoms. Pertinent negatives include abnormal bleeding (hematology), abnormal vaginal bleeding, anxiety, decreased libido, depression, difficulty falling sleep, dyspareunia, history of infertility, nocturia, sexual dysfunction, sleep disturbances, urinary incontinence, urinary urgency, vaginal discharge and vaginal itching. Client does not take calcium. Client does not take Vitamin D. Client does not take multivitamins. Client does not take Folic acid. The client does use tobacco. Tobacco cessation has been discussed. The client has not been exposed to passive smoke. The client has not been exposed to passive vaping. Functional Status Date Functional Assessmen t No Information Instructions Date Instruction Additional Infor mation Notes mild symptoms, not on meds, no falls, no tx desired Related to Neuropathy On venlafaxine 75mg QD, Quetiapine 100mg QHS-not feeling controlled as she is awaiting her psych to give her adderall and he is reluctant according to her. She notes her ADHD makes it so she feels anxious, thought it is not really her anxiety but her ADHD. Related to Mixed anxiety and depressive disorder Ordered as has never had one. Re lated to Screening mammogram for breast cancer Had been taking Adde rall XR 30mg QD, has psych who plans to give her the meds, but has been off for 11 months and she is struggling without them. EKG ordered given cardiac risks with age as baseline. EKG without concenring findings. Related to Attention deficit hyperactivity disorder (ADHD), predominantly hyperactive type Labs ordere Related to Farzaneh arriaza for diabetes mellitus Hx anemia s/p bleedi ng ulcers from NSAID use, resolved. CBC ordered Related to Iron deficiency anemia due to chronic blood loss 1 ppd x 1 year, had quit for 3 years, started again while under alot of stress. Would like to quit, patches started at 21mg QD x 4 weeks, rtc for f/u and will need 14mg QD x 4 weeks following that. Related to Smoking Assessments Type Assessment Date No Information Patient Care Teams Name Effective Dates (start - stop) Status Members No Information
--- OUTSIDE RECORDS SUMMARY | 2024-09-17 09:52 | XMS_ITS | Continuity of Care Document ---
Author Organization [facility] Address [address] [place] [address] Phone Care Team Providers Care Printing Grey Cloth Tender Name Role Phone SONALI DUMONT MD, MOISES Unavailable Unavailab le Advance Directives Directive Yes / No Effective Date File Name No Information Encounters Encounter Description Practice Location Reason(s) For Visit Diagnoses Date Provider Providers Copied on Encounter [facility], [address], [place], [address], [place] tel:[phone] [facility] No Information 8 MD MOISES RAE. [address] [address], [place], [id number] , [place]. tel:[phone] Referring Provider: LINCOLN AGUIRRE, [address] [place], [address]. tel:[phone] Family History Family Member Type Diagnosis Age At Onset No Information Payers Payer name Insurance type Covered green party ID Authordayaa sena(s) [facility] [id number] Social History Type Description Quantity Date Captured Comments Sex Female Smoking Status No Information Chief Complaint And Reason For Visit No Information History Of Present Illness Encounter Date Complaint History Of Prese nt Illness No Information Instructions Date Instruction Additional Infor mation No Information Assessments Type Assessment Date No Information
--- OUTSIDE RECORDS SUMMARY | 2024-09-17 09:52 | XMS_ITS | Encounter Summary ---
Author Organization [facility] Address [address] [place] [address] Care Team Providers Care Sales Account Representative Name Role Phone Ozzy Saucedo MD Primary Care Provider [phone] [facility] Unavailable Juan A Suresh MD Primary Care Provider [phone] Encounter Details Date Type Department Care Team (Late st Contact Info) Description 07/02/2024 Telephone [facility] [address] [place] [address] [phone] Provider, [facility] Social History Tobacco Use Types Packs/Day Years Used Date Smoking Tobacco: Every Day Cigarettes Smokeless Tobacco: Never Comments:She is interested i n quitting, considering when. Alcohol Use Standard Drinks/Week Comments Not Currently 0 (1 standard drink = 0.6 oz pur e alcohol) PHQ-2 Answer Date Recorded PHQ-2 Score 0 06/27/2023 Intimate Partner Violence Answer Date R ecorded Fear of Current or Ex-Partner Not on file Emotionally Abused Not on file 03/16/2023 Physically Abused Not on file 03/16/2023 Sexually Abused Not on file 03/16/2023 Feel Safe at Home Not on file 03/16/2023 Comments No Sex and Gender Information Value Date Recorded Sex Assigned at Not on file Legal Sex Female 3:59 PM EDT Gender Identity Not on file Sexual Orientation Not on file documented as of this encounter Miscellaneous Notes * Telephone Encounter - Lori Benavides - 07/02/2024 3:07 PM EST Pt needs to call [facility] before PT 1 can be done they do not have current address. Jonjungleila elizabeth for PT 07/02/24 Received request from patient for one PT-1 form. Request type: New form Name: NPI Facility: [facility] Address: [facility] [id number] Patient's [facility] ID number: Confirm the patient's address: [address] [address] [facility] [address] Is the treating facility within the member's locality: no How long will the [facility] member require these services? 12mo 4x month Is there a medical reason why the member (or guardian if accompanying a minor) is unable to use public transportation? Yes: Is a wheelchair van needed? no Is an escort accompanying the member for assistance with ambulation or to accompany a minor? no Is a service animal needed? no Does member carry self administered Oxygen? no Specify other transportation needs: I have confirmed that the member does not have access to public or personal transportation resources including friends or family to provide them with transportation: yes I have confirmed that the treating provider (destination is active [facility] provider. I have confirmed that the member is traveling to obtain medical services covered under the members coverage type: yes I have confirmed that the requested duration and frequency of transportation services are consistent with scheduled member appointments: yes Informed patient that this would take a minimum of 2 business days to complete. [facility] for completion. documented in this encounter Plan of Treatment Not on file documented as of this encounter Goals Goal Patient Goal Type Associated Problems Recent Progress Patient-Stated? Author Quit smoking / using tobacco Lifestyle Elena Wilkins MD Note: Smoking can cause cancer, heart attacks, hardening of the arteries, bronchitis, emphysema, cough, shortness of breath, wrinkles, and premature aging and premature births. Some benefits of quitting smoking begin right away. Your risk of heart disease begins to decrease as soon as you quit. Your general health may also start to improve immediately because you are not irritating your lungs and more oxygen gets to your body organs. Your blood circulation is likely to get better. Other benefits may include fewer colds and lung infections as well as reduced risk of high blood pressure, stroke, and cancer. Interested in quitting smoking? Discuss medication options with your provider or contact the Quit To Win program at . Any insurance accepted. Quit smoking resources-[email or web address] documented as of this encounter Visit Diagnoses Not on filedocumented in this encounter Care Teams Sales Account Representative Relationship Specialty Start Date End Date Ozzy Saucedo MD [address] [place] [address] PCP - General Family Medicine 12/07/22 08/05/24 Provider, [facility] PCP - Backup PCP 12/09/22 Juan A Suresh MD [address] [facility] [place] [address] PCP - General 08/06/24 documented as of this encounter
--- OUTSIDE RECORDS SUMMARY | 2024-09-17 09:52 | XMS_ITS | Clinical Summary ---
Author Organization [facility] Address [address] [id number] Care Team Providers Care Manager Land Name Role Phone Provider, Apcc Unavailable Unavailable Juan A Suresh MD Primary Care Provider [phone] Allergies Active Allergy Reactions Criticality Noted Date Comments Ibuprofen Nausea/GI Upset 05/20/2022 Naproxen Nausea/GI Upset 05/20/2022 Medications * This document contains information received from the source organization and may not represent a complete record from that organization. Venlafaxine HCl (EFFEXOR-XR) 75 MG 24 hr capsule TAKE 1 CAPSULE BY MOUTH DAILY DIRECTED 2 Active ADDERALL XR, 30MG, 30 MG 24 hr capsule 3 Active Venlafaxine HCl ER (EFFEXOR-XR) 37.5 MG 24 hr capsule 3 Active QUEtiapine Fumarate (SEROquel) 25 MG tablet 3 Active Nicotine (NICODERM CQ) 7 MG/24HR 3 Active Norethindrone, Contraceptive, (Ghada) 0.35 MG tablet Take one tablet (0.35 mg total) by mouth 1 (one) time each day. 28 tablet 11 3 10/22/19 25 Active Fluconazole (DIFLUCAN) 150 MG tablet 4 Active Folic Acid (FOLVITE) 1 MG tablet 4 Active HYDROCORTISONE, RECTAL, (ANUSOL-HC) 2.5 % rectal cream APPLY RECTALLY TO THE AFFECTED AREA EVERY 12 HOURS NEEDED FOR HEMORRHOIDS 4 Active hydrOXYzine HCl (ATARAX) 25 MG tablet Take 25 mg by mouth 2 (two) times a day if needed for anxiety. 4 Active Prazosin HCl (MINIPRESS) 2 MG capsule 4 Active Prazosin HCl (MINIPRESS) 1 MG capsule 4 Active Pantoprazole Sodium (PROTONIX) 40 MG EC tablet TAKE 1 TABLET BY MOUTH DAILY FOR STOMACH ACID OR REFLUX 4 Active Omeprazole (PriLOSEC) [address] capsule TAKE 1 TABLET BY MOUTH DAILY FOR GERD 4 Active OLANZapine (ZyPREXA) 10 MG tablet 4 Active hydrOXYzine HCl (ATARAX) 50 MG tablet Take 100 mg by mouth. 4 Active Clotrimazole (LOTRIMIN) 1 % vaginal cream Insert into the vagina. 4 Active ADDERALL XR, 20MG, 20 MG 24 hr capsule Take 20 mg by mouth 2 (two) times a day. 4 Active Amphetamine-Dex troamphetamine (ADDERALL) 20 MG tablet 4 Active Nicotine (NICODERM CQ) 21 MG/24HR 4 Active QUEtiapine Fumarate (SEROquel) 100 MG tablet TAKE 1 TABLET BY MOUTH AT BEDTIME MAY TAKE ADDITIONAL 1/4 TO 1/2 TABLET TWICE DAILY NEEDED FOR ANXIETY 4 Active QUEtiapine Fumarate (SEROquel) 200 MG tablet TAKE 1 TABLET BY MOUTH EVERY EVENING DIRECTED 4 Active QUEtiapine Fumarate (SEROquel) 50 MG tablet TAKE 3 TABLETS BY MOUTH DAILY AT BEDTIME FOR MOOD 4 Active QUEtiapine Fumarate 150 MG Tab 4 Active Venlafaxine ER (EFFEXOR-XR) 150 MG 24 hr capsule 4 Active Baclofen (LIORESAL) 10 MG tablet TAKE 1 TABLET BY MOUTH THREE TIMES DAILY WITH FOOD OR MILK Active traMADol HCl (ULTRAM) 50 MG tablet Take 1 tablet every 6 hours by oral route for 10 days. Active Active Problems Problem Noted Date Diagnosed Date Alcohol abuse 02/17/2024 Overview (02/17/2024): 02/17/2024 received records [facility] Jason richter (faxed) per records patient in [facility] Detox 02/07 and Ativan taper done, went to [facility] 02/15/2024 for feeling like about to have a panic attack. Discharged from their ED due to verbally abusive and uncooperative 3:49AM 02/16/2024. Then it appears per chart review patient went to [facility] 02/16/2024 20:45 [place], apparent alcohol intoxication and discharged advised to follow-up with PCP and seek outpatient treatment for this 02/17/2024 3:32AM. Asking nursing to triage and schedule appointment as soon as possible with [facility]. Endometriosis 06/27/2023 Overview (06/27/2023): 06/27/2023 Pt is scheduled to see OB at [facility] next week. hx of laporoscopy 2014 & 2017, stage 1 Endometriosis. PTSD (post-traumatic stress disorder) 06/27/2023 Overview (06/27/2023): Her mother was murdered when she was 11. PTSD from that. Sees weekly counselor. Cervical radiculopathy 06/27/2023 Overview (06/27/2023): 06/27/2023 -patient reported. She states that when she lived in [place] she had imaging done on her cervical spine, went to physical therapy which did not help her, saw the chiropractor which was helpful, was seeing a pain specialist, and was getting pain injections into her neck as well. We currently have no records of these at this time, will update cervical x-ray at this visit. Patient offered physical therapy, but she states that she does not want to do that because it was not effective for her in the past. Cervical cancer screening 05/24/2022 Overview (05/24/2022): Pap/hpv=neg/neg 2021 Rpt q3yrs Encounters Date Type Department Care Team Description 07/02/2024 Telephone [facility] [address] [place] [id number] Provider, [facility] from Last 3 Months Family History Medical History Relation Name Comments No Known or Significant Medical History Father No Known or Significant Medical History Maternal grand father Heart Disorder Maternal grandmother anxiety Maternal grandmother No Known or Significant Medical History Mother No Known or Significant Medical History Paternal grand father No Known or Significant Medical History Paternal grand mother No Known or Significant Medical History Sister No Known or Significant Medical History Son Relation Name Status Comments Father Maternal grandfather Maternal grandmother Mother Paternal grandfather Paternal grandmother Sister Son Alive Social History Tobacco Use Types Packs/Day Years Used Date Smoking Tobacco: Every Day Cigarettes Smokeless Tobacco: Never Tobacco Cessation:Ready to Q uit: Not Asked; Counseling Given: Not Answered Comments:She is interested in quitting, considering when. Alcohol Use Standard Drinks/Week [...] on file Sexual Orientation Not on file Last Filed Vital Signs Vital Sign Reading Time Taken Comments Blood Pressure 122/78 07/14/2023 2:24 PM EST Pulse 85 06/27/2023 3:56 PM EST Temperature - - Respiratory Rate - - Oxygen Saturation - - Inhaled Oxygen Concentration - - Weight 72.6 kg (160 lb) 07/14/2023 2:24 PM EST Height 156.2 cm (5' 1.5 ) 07/14/2023 2:24 PM EST Body Mass Index 29.74 07/14/2023 2:24 PM EST Plan of Treatment Health Maintenance Due Date Last Done Comments DTaP/Tdap/Td (1 - Tdap) 1998 Hep B (1 of 3 - 19+ 3-dose series) 1999 Pneumococcal (1 of 2 - PCV) 1999 Mammogram/Breast Imaging 2020 COVID-19 Vaccine (1 - season) 2024 Influenza (#1) 2024 Pap Smear 05/20/2027 05/20/2022 Zoster (Shingrix) (1 of 2) 2030 HPV Testing Discontinued 05/20/2022 Hepatitis C Screening Completed 05/20/2022, 022 Eye/Retina Exam Discontinued 08/18/2022, 08/01, 08/18/2022, Additional history exists Physical Discontinued 06/27/2023 LDL Cholesterol Discontinued 05/31/2024, 06/27/2023 HPV Vaccine Aged Out No longer eligi ble based on patient's age to complete this topic Hep A Aged Out No longer eligi ble based on patient's age to complete this topic Hib Aged Out No longer eligi ble based on patient's age to complete this topic Meningococcal ACWY Aged Out No longer eligible based on patient's age to complete this topic Goals Goal Patient Goal Type Associated Problems [...] at . Any insurance accepted. Quit smoking resources-[email or web address] Procedures * Due to [place] state law, this organization might not be sharing negative HIV tests. Procedure Name Priority Date/Time Associated Diagnosis Comments LIPID PANEL WITH REFLEX TO DIRECT LDL Routine 06/27/2023 4:50 PM EST Routine history and physical examination of adult THINPREP TIS PAP AND HPV MRNA E6/E7, CHLAMYDIA/N.GONORRH OEAE Routine 05/20/2022 3:49 PM EDT Cervical cancer screening HEPATITIS C AB WITH REFLEX TO RNA PCR, SERUM Routine 05/20/2022 1:53 PM EDT Screen for STD (sexually transmitted disease) from Last 3 Months or Most Recently Relevant to Health Maintenance Results * Due to [place] state law, this organization might not be sharing negative HIV tests. * (ABNORMAL) LIPID PANEL WITH REFLEX TO DIRECT LDL (06/27/2023 4:50 PM EST) Cholesterol 210(H) <200 mg/dL [facility] HDL Cholesterol 78 > OR = 50 mg/dL [facility] Triglyceride 84 <150 mg/dL [facility] LDL Cholesterol 114(H) mg/dL (calc) [facility] Comment: Reference range: <100 Desirable range <100 mg/dL for primary prevention; ?? <70 mg/dL for patients with CHD or diabetic patients with > or = 2 CHD risk factors. LDL-C is now calculated using the Ko-Kari calculation, which is a validated novel method providing better accuracy than the Friedewald equation in the estimation of LDL-C. Ko SS et al. KIZZY. 2013;310(19): 3956-9064 (http://education.Apos Therapy/faq/WLR398) CHOL/HDL Ratio 2.7 <5.0 (calc) [facility] Cholesterol Non-HDL 132(H) <130 mg/dL (calc) [facility] Comment: For patients with diabetes plus 1 major ASCVD risk factor, treating to a non-HDL-C goal of <100 mg/dL (LDL-C of <70 mg/dL) is considered a therapeutic option. 06/27/2023 4:50 PM EST 06/27/2023 10:51 PM EST Narrative Resulting Agency Comment [id number] us Marie Marrero [facility] Final Resul t [facility] [address] [place] [address] * THINPREP TIS PAP AND HPV MRNA E6/E7, CHLAMYDIA/N.GONORRHOEAE (05/20/2022 3:49 PM EDT) Clinical information None given [facility] Date last menstrual period 04/27/2022 [facility] Date of previous PAP smear NONE GIVEN [facility] Date of previous biopsy NONE GIVEN [facility] Specimen source (Cvx/Vag) None given [facility] Statement of Adequacy (Cvx/Vag) Satisfactory for evaluation. Endocervical/shipley sformation zone component present. [facility] Cytology, Pap Smear Negative for intraepithelial lesion or malignancy. [facility] Cytology study comment (Cvx/Vag) This Pap test has been evaluated with computer assisted technology. [facility] Heatset Winder Operator (Cvx/Vag) GSG, CT(ASCP) CT screening location: [place] [address] [facility] COMMENT SEE NOTE [facility] Comment: EXPLANATORY NOTE: The Pap is a screening test for cervical cancer. It is not a diagnostic test and is subject to false negative and false positive results. It is most reliable when a satisfactory sample, regularly obtained, is submitted with relevant clinical findings and history, and when the Pap result is evaluated along with historic and current clinical information. HPV MRNA E6/E7 Not Detected Not Detected [facility] Comment: Methodology: Product Support Rep-Mediated Amplification This assay detects E6/E7 viral messenger RNA (mRNA) from 14 high-risk HPV types (16,18,31,33,35,39,45,51,52,56,58,59,66,68). Cervical sources are required for HPV testing. If a vaginal source from a patient who has had a total hysterectomy with removal of cervix was submitted, please contact the testing laboratory for alternative testing options. For additional information, please refer to http://[employer]Humouno/faq/GPD859p6 (This link if provided for information/ educational purposes only.) Chlamydia trachomatis rRNA NOT DETECTED NOT DETECTED [facility] Neisseria Gonorrhoeae rRNA NOT DETECTED NOT DETECTED [facility] COMMENT SEE NOTE [facility] Comment: The analytical performance characteristics of this assay, when used to test SurePath(TM) specimens have been determined by [facility]. The modifications have not been cleared or approved by the FDA. This assay has been validated pursuant to the CLIA regulations and is used for clinical purposes. For additional information, please refer to https://education.Humouno/faq/EMH228 (This link is being provided for information/ educational purposes only.) 05/20/2022 3:49 PM EDT 05/21/2022 3:09 AM EDT Narrative Resulting Agency Comment [id number] Elena Arguello MD PATHOLOGY-INTERFACED Fi nal Result [facility] [address] [place] [address] * HEPATITIS C AB WITH REFLEX TO RNA PCR, SERUM (05/20/2022 1:53 PM EDT) Hepatitis C virus Ab Signal/Cutoff 0.03 <1.00 [facility] Hepatitis C virus Ab NON-REACTI VE NON-REACTI VE [facility] 05/20/2022 1:53 PM EDT 05/20/2022 1:53 PM EDT Narrative [facility] - 05/21/2022 9:03 AM EDT Patient's primary care provider is: ??N/A Testing performed at: [facility], [address] [place] [address], [address], Uc Architect: Caden Gamboa MD Elena Arguello MD LABORATORY Final R esult Performing Organization Address City/[facility]/ZIP Co de Phone Number [address] [address] DIRECTOR Caden Gamboa MD from Last 3 Months or Most Recently Relevant to Health Maintenance Insurance [facility]-OUT OF NETWORK [employer] ACCESS SUZE Care Teams Manager Land Relationship Specialty Start Date End Date Provider, [facility] PCP - Backup PCP 12/09/22 Juan A Suresh MD [address] [facility] [place] [address] PCP - General 08/06/24
--- OUTSIDE RECORDS SUMMARY | 2024-09-17 09:52 | XMS_ITS | Encounter Summary ---
Author Organization [facility] Address [address] [place] [address] Care Team Providers Care Metal Work Duct Installer Name Role Phone Ozzy Saucedo MD Primary Care Provider [phone] Provider, [facility] Unavailable Unavailable [facility], [facility] [place] Unavailable U navailable Juan A Suresh MD Primary Care Provider [phone] Encounter Details Date Type Department Care Team (Late st Contact Info) Description 06/27/2023 Orders Only [facility] [address] [place] [phone] Marie Marrero, PLUG GROWER [address] [place] [id number] Social History Tobacco Use Types Packs/Day Years [...] on file documented as of this encounter Plan of Treatment Not on file documented as of this encounter Goals Goal Patient Goal Type Associated Problems Recent Progress Patient-Stated? Author Quit smoking / using tobacco Lifestyle No Elena Arguello MD Note: Smoking can cause cancer, heart [...] at . Any insurance accepted. Quit smoking resources-[email or web address].[email or web address] documented as of this encounter Procedures * Due to [place] AllFreed law, this organization might not be sharing negative HIV tests. Procedure Name Priority Date/Time Associated Diagnosis Comments CBC INCLUDES DIFFERENTIAL AND PLATELET COUNT Routine 06/27/2023 4:50 PM EST Routine history and physical examination of adult LIPID PANEL WITH REFLEX TO DIRECT LDL Routine 06/27/2023 4:50 PM EST Routine history and physical examination of adult BASIC METABOLIC PANEL WITH (GFR) Routine 06/27/2023 4:50 PM EST Routine history and physical examination of adult documented in this encounter Results * Due to [place] AllFreed law, this organization might not be sharing [...] factors. LDL-C is now calculated using the Rehana calculation, which is a validated novel method providing better accuracy than the Friedewald equation in the estimation of LDL-C. Ko SS et al. KIZZY. 2013;310(19): 3545-8322 (http://education.Panda Graphics.Nok Nok Labs/faq/ODO868) CHOL/HDL Ratio 2.7 <5.0 (calc) [facility] Cholesterol Non-HDL 132(H) <130 mg/dL (calc) [facility] Comment: For patients with diabetes plus 1 major ASCVD risk factor, treating to a non-HDL-C goal of <100 mg/dL (LDL-C of <70 mg/dL) is considered a therapeutic option. 06/27/2023 4:50 PM EST 06/27/2023 10:51 PM EST Narrative Resulting Agency Comment [id number] us Marie Marrero [facility] Final Resul t [facility] [address] [place] [address] * BASIC METABOLIC PANEL WITH (GFR) (06/27/2023 4:50 PM EST) Pathologist [facility] Glucose 85 65 - 99 mg/dL [facility] Comment:Fasting reference in terval Urea Nitrogen Blood (BUN) 11 7 - 25 mg/dL [facility] Creatinine 0.86 0.50 - 0.99 mg/dL [facility] EGFR 86 > OR = 60 mL/min/1. 73m2 [facility] BUN/Creatinine Ratio SEE NOTE: 6 - 22 (calc) [facility] Comment: ?? Not Reported: BUN and Creatinine are within ?? reference range. Sodium 138 135 - 146 mmol/L [facility] Potassium 4.2 3.5 - 5.3 mmol/L [facility] Chloride 105 98 - 110 mmol/L [facility] Carbon dioxide 27 20 - 32 mmol/L [facility] Calcium 9.2 8.6 - 10.2 mg/dL [facility] 06/27/2023 4:50 PM EST 06/27/2023 10:51 PM EST Narrative [facility] - 06/28/2023 1:09 AM EST Please note that this estimated GFR does not include an adjustment for the patient's height or weight, and can therefore, be viewed as reliable only for patients with heights between 60 and 72 . More precise quantification using a 24-hour urine sample or height-based algorithm is recommended for patients outside of this range of height and for those individuals with more precise needs for GFR calculation. Resulting Agency Comment [id number] Marie Marrero [facility] Final Resul t Performing Organization Address [facility] de Phone Number [facility] [address] [place] [address] * CBC INCLUDES DIFFERENTIAL AND PLATELET COUNT (06/27/2023 4:50 PM EST) WBC 7.3 3.8 - 10.8 Thousand/u L [facility] RBC 3.94 3.80 - 5.10 Million/uL [facility] Hemoglobin 12.7 11.7 - 15.5 g/dL [facility] Hematocrit 37.6 35.0 - 45.0 % [facility] MCV 95.4 80.0 - 100.0 fL [facility] MCH 32.2 27.0 - 33.0 pg [facility] MCHC 33.8 32.0 - 36.0 g/dL [facility] RDW 11.4 11.0 - 15.0 % [facility] PLT 216 140 - 400 Thousand/u L [facility] MPV 11.6 7.5 - 12.5 fL [facility] Neutrophils # 3263 1500 - 7800 cells/uL [facility] Lymphocytes # 3073 850 - 3900 cells/uL [facility] Monocytes # 818 200 - 950 cells/uL [facility] Eosinophils # 102 15 - 500 cells/uL [facility] Basophils # 44 0 - 200 cells/uL [facility] Neutrophils % 44.7 % [facility] Lymphocytes % 42.1 % [facility] Monocytes % 11.2 % [facility] Eosinophils % 1.4 % [facility] Basophils % 0.6 % [facility] 06/27/2023 4:50 PM EST 06/27/2023 10:51 PM EST Narrative Resulting Agency Comment [id number] Marie Marrero NP LAB SAME DAY RESULT Final R esult Performing Organization Address [facility] de Phone Number [facility] [address] [place] [address] documented in this encounter Visit Diagnoses Diagnosis Routine history and physical examination of adult Routine general medical examination at a health care facility documented in this encounter Care Teams Metal Work Duct Installer Relationship Specialty Start Date End Date Ozzy Saucedo MD [address] [place] [address] PCP - General Family Medicine 12/07/22 08/05/24 Provider, [facility] PCP - Backup PCP 12/09/22 Juan A Suresh MD [address] [facility] [place] [address] PCP - General 08/06/24 [facility] 04/01/23 07/30/23 documented as of this encounter
--- OUTSIDE RECORDS SUMMARY | 2024-09-17 09:52 | XMS_ITS | Clinical Summary ---
Author Organization [facility] Address [phone] Formerly [facility] [place] [address] Care Team Providers Care Welt Stitcher Name Role Phone Pcp, Unknown Primary Care Provider Unavailabl e Allergies Active Allergy Reactions Criticality Noted Date Comments Ibuprofen Nausea And Vomiting 05/20/2022 Naproxen Nausea And Vomiting 05/20/2022 Medications Medication Sig Dispensed Refills Start Date End Date Status ADDERALL XR 30 mg 24 hr capsule 06/10/2023 Active ADDERALL XR 20 mg 24 hr capsule Take 20 mg by mouth 2 (two) times a day. 01/16/2024 Active traMADoL (ULTRAM) 50 mg tablet Take 1 tablet every 6 hours by oral route for 10 days. Active venlafaxine (EFFEXOR-XR) 150 MG 24 hr capsule 03/15/2024 Active prazosin (MINIPRESS) 2 MG capsule 03/15/2024 Active norethindrone (MICRONOR) 0.35 mg tablet Take 0.35 mg by mouth. 07/14/2023 10/21/2024 Active OLANZapine (ZYPREXA) 10 MG tablet 03/13/2024 Active Active Problems Problem Noted Date Diagnosed Date Endometriosis 09/07/2024 Assessment & Plan (09/07/2024 2:30 PM EST): Patient with history of laparoscopy proven stage 1 endometriosis Patient's last pelvic US was done in 2022 and showed a 1 cm fibroid Prior imaging and BIOLOGY DEPARTMENT CHAIR records reviewed Patient requests US to follow up on fibroid/endometriosis and pelvic pain Patient will return for follow up at annual BIOLOGY DEPARTMENT CHAIR exam Pelvic pain 09/07/2024 Encounters Date Type Department Care Team Description 09/07/2024 2:00 PM EST Office Visit [facility] [address] [place] [address] [place] [address] Armida Londono MD Pelvic pain (Primary Dx); Breast cancer screening by mammogram; Endometriosis from Last 3 Months Social History Tobacco Use Types Packs/Day Years [...] - - Body Mass Index - - Plan of Treatment Upcoming Encounters Date Type Department Care Team (Late st Contact Info) Description 09/07/2024 Procedure Pass [facility] - [address] [place] [address] 10/16/2024 11:30 AM EDT Appointment [facility] [place], [place] [address] [place] [address] [place] [address] Armida Londono MD [address] [place] [address], [address] [phone] [email or web address] 10/16/2024 12:30 PM EDT Office Visit [facility] [address] [place] [address] [place] [address] Armida Londono MD [address] [place] [address], [address] [address] [email or web address] 03/01/2025 1:00 PM EDT Office Visit [address] [address] Anila Prescott MD [address] [facility], [address] [place] [address] [email or web address] 03/08/2025 12:45 PM EDT Appointment [address] [place] [address] Armida Londono MD [address] [place] [address], [address] [place] [address] [email or web address] Health Maintenance Due Date Last Done Comments Adult Td,Tdap Booster 1980 DEPRESSION SCREENING 1992 SMOKING Hx and SMOKELESS TOB ACCO SCREENING 1993 HEPATITIS B SCREENING 1998 HEPATITIS C SCREENING 1998 HIV ONE-TIME SCREENING (18-6 5 YEARS) 1998 HEPATITIS B VACCINES (1 of 3 - 19+ 3-dose series) 1999 PAP SMEAR 2001 MAMMOGRAM 2020 INFLUENZA VACCINE (#1) 2024 COVID-19 VACCINE ( - 2023-2 5 season) 2024 HEPATITIS A VACCINES Aged Out No long er eligible based on patient's age to complete this topic HIB VACCINES Aged Out No longer eligi ble based on patient's age to complete this topic MENINGOCOCCAL VACCINES (ACWY) Aged Out No longer eligible based on patient's age to complete this topic PNEUMOCOCCAL VACCINES (0-49 years) Aged Out No longer eligible based on patient's age to complete this topic Medical Devices Not on file Care Teams Welt Stitcher Relationship Specialty Start Date End Date Pcp, Unknown PCP - General 08/07/24 Additional Source Comments The information contained in this document represents components of the legal health record. It is not the complete legal health record.[facility]
--- OUTSIDE RECORDS SUMMARY | 2024-09-17 09:52 | XMS_ITS | Encounter Summary ---
Author Organization [facility] Address [address] [place] [address] Care Team Providers Care Nuclear Medicine Medical Director Name Role Phone Ozzy Saucedo MD Primary Care Provider [phone] Provider, [facility] Unavailable Unavailable [facility], [facility][1] Unavailable U navailable Juan A Suresh MD Primary Care Provider [phone] Reason for Visit * Reason Comments Unable To Schedule he patient is unable to reach for scheduling MAMMOGRAM SCREENING TOMOSYNTHESIS, BILATERAL FC number in chart invalid and sent letter.Need to call PCP office. Encounter Details Date Type Department Care Team ([facility] st Contact Info) Description 04/18/2023 Telephone CALL CENTER [facility] [address] [place] [address] Judit Katz NP [address] [address] Unable To Schedule (he patient is unable to reach for scheduling MAMMOGRAM SCREENING TOMOSYNTHESIS, BILATERAL FC number in chart invalid and sent letter.Need to call PCP office./) Social History Tobacco Use Types Packs/Day Years Used Date Smoking Tobacco: Some Days Cigarettes Smokeless Tobacco: Never Intimate Partner Violence Answer Date R ecorded [...] encounter Miscellaneous Notes * Telephone Encounter - Abel Montanez - 04/18/2023 6:49 PM EDT There was an attempt to schedule the appointment. The patient is unable to reach for scheduling MAMMOGRAM SCREENING TOMOSYNTHESIS, BILATERAL FC number in chart invalid and sent letter. The order willbe pull from [facility] 06/18/2023. Need to call PCP office. Thank You Radiology Scheduling Dept documented in this encounter Plan of Treatment Not on file documented as of this encounter Visit Diagnoses Not on filedocumented in this encounter Care Teams Nuclear Medicine Medical Director Relationship Specialty Start Date End Date Ozzy Saucedo MD [address] [place] [address] PCP - General Family Medicine 12/07/22 08/05/24 Provider, [facility] PCP - Backup PCP 12/09/22 Juan A Suresh MD [address] [facility] [place] [address] PCP - General 08/06/24 Padmini Patricia [facility] 04/01/23 07/30/23 documented as of this encounter
--- OUTSIDE RECORDS SUMMARY | 2024-09-17 09:52 | XMS_ITS | Clinical Summary ---
Author Organization [facility] Address [address] [place], [place] [id number] Care Team Providers Care Quality Control Scientist Name Role Phone Ozzy Saucedo Unavailable Ozzy Saucedo Primary Care Provider [phone] Allergies Active Allergy Reactions Criticality Noted Date Comments Ibuprofen GI Intolerance 02/15/2024 Naproxen Sodium GI Intolerance 02/15/2024 Social History Tobacco Use Types Packs/Day Years Used Date Smoking Tobacco: Never Assessed Comments Unknown Sex and Gender Information Value Date Recorded Sex Assigned at Female 02/15/2024 11:18 PM EDT Legal Sex Female 10:33 PM EDT Gender Identity Female 02/15/2024 11:18 PM EDT Sexual Orientation Not on file Last Filed Vital Signs Vital Sign Reading Time Taken Comments Blood Pressure 122/84 02/15/2024 10:38 PM EDT Pulse 86 02/15/2024 10:38 PM EDT Temperature 36.7 ??C (98.1 ??F) 02/15/2024 10:38 PM E DT Respiratory Rate 18 02/15/2024 10:38 PM EDT Oxygen Saturation 98% 02/15/2024 10:38 PM EDT Inhaled Oxygen Concentration - - Weight - - Height 152.4 cm (5') 02/15/2024 10:38 PM EDT Body Mass Index - - Plan of Treatment Health Maintenance Due Date Last Done Comments Lipid Panel 1980 Depression Screening 1984 Hepatitis C Screening 1998 DTaP,Tdap,and Td Vaccines (1 - Tdap) 1999 Pap Smear 2001 Cervical Cancer Screening 2010 HPV/Cotest 2010 Breast Cancer Screening 2020 COVID-19 Vaccine (2023-2 5 season) 2024 Influenza Vaccine (#1) 2024 Blood Pressure 02/14/2025 02/15/2024 Meningococcal Vaccines Aged Out No lo nger eligible based on patient's age to complete this topic Pneumococcal Vaccine: Pediat rics (0 to 5 Years) and At-Risk Patients (6 to 64 Years) Aged Out No longer eligi ble based on patient's age to complete this topic Insurance [employer] [facility] [facility] [place] [facility] Care Teams Quality Control Scientist Relationship Specialty Start Date End Date Ozzy Saucedo [address] [place] [address] PCP - Insurance Assigned PCP 02/15/24 Ozzy Saucedo [address] [place] [address] PCP - General 02/15/24
--- OUTSIDE RECORDS SUMMARY | 2024-09-17 09:52 | XMS_ITS | Encounter Summary ---
Author Organization [facility] Address [address] [place] [address] Care Team Providers Care Erco Machine Operator Name Role Phone Ozzy Saucedo MD Primary Care Provider [phone] Provider, [facility] Unavailable Unavailable [facility], [facility] Unavailable U navailable Juan A Suresh MD Primary Care Provider [phone] Encounter Details Date Type Department Care Team (Late st Contact Info) Description 06/27/2023 Orders Only [facility] BRANCH LIBRARY CLERK [address] [place] [phone] Elena Arguello MD [address] [place] [phone] Social History Tobacco Use Types Packs/Day Years [...] as of this encounter Miscellaneous Notes * Result Encounter Note - Carlos Alberto Garrison RN - 06/27/2023 4:50 PM EST Outreach made to pt. Pt aware all testing was negative. Pt verbalized understanding and agreeable. No further question or concerns at this time. documented in this encounter Plan of Treatment [...] at . Any insurance accepted. Quit smoking resources-[email or web address] documented as of this encounter Procedures * Due to [place] [employer] law, this organization might not be sharing negative HIV tests. Procedure Name Priority Date/Time Associated Diagnosis Comments CHLAMYDIA TRACHOMATIS/N. GONORRHOEAE (GC) RNA, TMA (URINE) Routine 06/27/2023 4:50 PM EST Pelvic pain HCG, TOTAL, QL Routine 06/27/2023 4:50 PM EST Pelvic pain documented in this encounter Results * Due to [place] [employer] law, this organization might not be sharing negative HIV tests. * HCG, TOTAL, QL (06/27/2023 4:50 PM EST) HCG, Qualitative (Screen) NEGATIVE [facility] Comment: Reference Range Non-: Negative : ? Positive 06/27/2023 4:50 PM EST 06/27/2023 10:51 PM EST Narrative Resulting Agency Comment [id number] Elena Arguello MD LAB SAME DAY RESULT Fin al Result Performing Organization Address [facility] Co de Phone Number [facility] [address] [place] [address] * CHLAMYDIA TRACHOMATIS/N. GONORRHOEAE (GC) RNA, TMA (URINE) (06/27/2023 4:50 PM EST) Chlamydia trachomatis rRNA NOT DETECTED NOT DETECTED [facility] Neisseria Gonorrhoeae rRNA NOT DETECTED NOT DETECTED [facility] COMMENT SEE NOTE [facility] Comment: The analytical performance characteristics of this assay, when used to test SurePath(TM) specimens have been determined by [employer]. The modifications have not been cleared or approved by the FDA. This assay has been validated pursuant to the CLIA regulations and is used for clinical purposes. For additional information, please refer to https://[employer]/faq/LRH682 (This link is being provided for information/ educational purposes only.) 06/27/2023 4:50 PM EST 06/27/2023 10:51 PM EST Narrative Resulting Agency Comment [id number] Elena Arguello MD LABORATORY Final R esult Performing Organization Address [facility] Co de Phone Number [facility] [address] [place] [address] documented in this encounter Visit Diagnoses Diagnosis Pelvic pain Reserved for inherently not codable concepts WITHOUT codable children documented in this encounter Care Teams Erco Machine Operator Relationship Specialty Start Date End Date Ozzy Saucedo MD [address] [place] [phone] PCP - General Family Medicine 12/07/22 08/05/24 Provider, [facility] PCP - Backup PCP 12/09/22 Juan A Suresh MD [address] [place] [address] PCP - General 08/06/24 [facility] 04/01/23 07/30/23 documented as of this encounter
--- OUTSIDE RECORDS SUMMARY | 2024-09-17 09:52 | XMS_ITS | Encounter Summary ---
Author Organization [facility] Address [address] [place] [address] Care Team Providers Care Production Service Manager Name Role Phone Hayley Spear APRN Primary Care Provider Ozzy Saucedo MD Primary Care Provider [phone] Provider, [facility] Unavailable Unavailable [facility] Unavailable navailable Juan A Suresh MD Primary Care Provider Encounter Details Date Type Department Care Team (Late st Contact Info) Description 05/20/2022 Orders Only [facility] SCOURER [address] [place] [phone] Elena Arguello MD [address] [place] [phone] Social History Tobacco Use Types Packs/Day Years Used Date Smoking Tobacco: Some Days Cigarettes Smokeless Tobacco: Never Comments No Sex and Gender Information Value Date Recorded Sex Assigned at Not on file Legal Sex Female 3:59 PM EDT Gender Identity Not on file Sexual Orientation Not on file documented as of this encounter Miscellaneous Notes * Result Encounter Note - Sruthi Tate - 05/20/2022 1:52 PM EDT Noted. Negative results. * Result Encounter Note - Sruthi Tate - 05/20/2022 1:52 PM EDT Noted. RN left message for pt on private voicemail with result and recommendation. documented in this encounter Plan of Treatment Not on file documented as of this encounter Procedures * Due to [facility] law, this organization might not be sharing negative HIV tests. Procedure Name Priority Date/Time Associated Diagnosis Comments THINPREP TIS PAP AND HPV MRNA E6/E7, CHLAMYDIA/N.GONORRHOE AE Routine 05/20/2022 3:49 PM EDT Cervical cancer screening TISSUE PATHOLOGY Routine 05/20/2022 3:49 PM EDT Thickened endometrium CULTURE, URINE, ROUTINE Routine 05/20/2022 1:53 PM EDT Other microscopic hematuria HEPATITIS C AB WITH REFLEX TO RNA PCR, SERUM Routine 05/20/2022 1:53 PM EDT Screen for STD (sexually transmitted disease) URINALYSIS, COMPLETE INCLUDES DIPSTICK AND MICROSCOPIC Routine 05/20/2022 1:53 PM EDT Other microscopic hematuria VENIPUNCTURE Routine 05/20/2022 1:52 PM EDT Screen for STD (sexually transmitted disease) HEPATITIS B SURFACE ANTIGEN Routine 05/20/2022 1:52 PM EDT Screen for STD (sexually transmitted disease) documented in this encounter Results * Due to [facility] law, this organization might not be sharing negative HIV tests. * THINPREP TIS PAP AND HPV MRNA [...] Smear Negative for intraepithelial lesion or malignancy. [facility] Cytology study comment (Cvx/Vag) This Pap test has been evaluated with computer assisted technology. [facility] School Program Director (Cvx/Vag) GSG, CT(ASCP) CT screening location: [facility] [address] [address] [facility] COMMENT SEE NOTE [facility] Comment: EXPLANATORY NOTE: The Pap is a [...] HPV MRNA E6/E7 Not Detected Not Detected [facility] Comment: Methodology: Eap Consultant-Mediated Amplification This assay detects E6/E7 viral messenger RNA (mRNA) from 14 high-risk HPV types (16,18,31,33,35,39,45,51,52,56,58,59,66,68). Cervical sources are required for HPV testing. If a vaginal source from a patient who has had a total hysterectomy with removal of cervix was submitted, please contact the testing laboratory for alternative testing options. For additional information, please refer to http://[employer]gate.[employer]/faq/OXB141l6 (This link if provided for information/ educational purposes only.) Chlamydia trachomatis rRNA NOT DETECTED NOT DETECTED [facility] Neisseria Gonorrhoeae rRNA NOT DETECTED NOT DETECTED [facility] COMMENT SEE NOTE [facility] Comment: The analytical performance characteristics of this assay, when used to test SurePath(TM) specimens have been determined by [employer]. The modifications have not been cleared or approved by the FDA. This assay has been validated pursuant to the CLIA regulations and is used for clinical purposes. For additional information, please refer to https://[employer]/faq/HAP829 (This link is being provided for information/ educational purposes only.) 05/20/2022 3:49 PM EDT 05/21/2022 3:09 AM EDT Narrative Resulting Agency Comment [id number] Elena Arguello MD PATHOLOGY-INTERFACED Fi nal Result [facility] [address] [place] [address] * TISSUE PATHOLOGY (05/20/2022 3:49 PM EDT) COLLECTION DATE 05/20/2022 3:49 PM [facility] SPECIMEN SOURCE . A . Endometrium (Biopsy) [facility] DIAGNOSIS . A . MID SECRETORY ENDOMETRIUM. NO HYPERPLASIA OR ATYPIA IS IDENTIFIED. [facility] Clinical Information None given [facility] Pathologist Selvin Werner M.D., Ph.D., Board Certified in Anatomic Pathology (electronic signature) Consulting Pathologist [facility] [phone] [facility] A PROCEDURE Biopsy/ies [facility] GROSS DESCRIPTION . A . SEE NOTE [facility] Comment: The container is labeled with patient's name and source EMB . ??Specimen is received in formalin and consists of blood admixed with fragments of barba to red-brown soft tissue and mucus measuring 2.8 x 2.2 x 0.2 cm in aggregate. ??Specimen is filtered and submitted entirely in cassette A1. MR 05/21/2022 ??Gross exam(s) performed at: [facility] ??[address] [place] [phone] ??Well Site Drilling Engineer: CARLOS FUNEZ MD 05/20/2022 3:49 PM EDT 05/21/2022 1:05 AM EDT Narrative Resulting Agency Comment [id number] Elena Arguello MD PATHOLOGY-INTERFACED Fi nal Result [facility] [address] [place] [address] * HEPATITIS C AB WITH REFLEX TO RNA PCR, SERUM (05/20/2022 1:53 PM EDT) Hepatitis C virus Ab Signal/Cutoff 0.03 <1.00 COI [facility] Hepatitis C virus Ab NON-REACTI VE NON-REACTI VE [facility] 05/20/2022 1:53 PM EDT 05/20/2022 1:53 PM EDT Narrative [facility] - 05/21/2022 9:03 AM EDT Patient's primary care provider is: ??N/A Testing performed at: [facility], [address] [place] [address], [id number], Well Site Drilling Engineer: Caden Gamboa MD Elena Arguelol MD LABORATORY Final R esult Performing Organization Address [facility] de Phone Number [address] [address] DIRECTOR Caden Gamboa MD * CULTURE, URINE, ROUTINE (05/20/2022 1:53 PM EDT) Bacteria culture (Urine) No Growth No Growth [facility] 05/20/2022 1:53 PM EDT 05/20/2022 1:53 PM EDT Narrative [facility] - 05/21/2022 8:54 AM EDT Patient's primary care provider is: ??N/A Testing performed at: [facility], [address] [place] [address], [address], Well Site Drilling Engineer: Caden Gamboa MD Elena Agruello MD LABORATORY Final R esult Performing Organization Address [facility] de Phone Number [address] [address] DIRECTOR Caden Gamboa MD * (ABNORMAL) URINALYSIS, COMPLETE INCLUDES DIPSTICK AND MICROSCOPIC (05/20/2022 1:53 PM EDT) Color (Urine) Yellow Yellow [facility] Clarity (Urine) Clear Clear [facility] pH (Urine) 8.5 5.0 - 8.0 [facility] Specific gravity (Urine) 1.020 1.005 - 1.030 [facility] Glucose (Urine) Negative Negative [facility] Bilirubin (Urine) Negative Negative [facility] Ketones (Urine) Negative Negative [facility] Protein (Urine) Negative Negative [facility] Urobilinogen (Urine) 0.2 E.U./dL 0-1 E.U./dL [facility] Nitrite (Urine) Negative Negative [facility] Erythrocytes (Urine) Trace-intact (A) Negative [facility] Leukocyte esterase (Urine) Negative Negative [facility] WBC (Urine) 0-2(A) NONE SEEN /HPF [facility] RBC (Urine Sed) 0-2(A) NONE SEEN /HPF [facility] Epithelial cells (Urine sed) FEW NONE SEEN /LPF [facility] Casts (Urine sed) NONE SEEN NONE SEEN /LPF [facility] Crystals (Urine sed) NONE SEEN NONE SEEN /HPF [facility] Bacteria (Urine) TRACE(A) NONE SEEN /HPF [facility] 05/20/2022 1:53 PM EDT 05/20/2022 1:53 PM EDT Narrative [facility] - 05/20/2022 3:34 PM EDT Patient's primary care provider is: ??N/A Testing performed at: [facility], [address] [place] [address], [address], Well Site Drilling Engineer: Caden Gamboa MD Elena Arguello MD LAB SAME DAY RESULT Fin al Result Performing Organization Address [facility] de Phone Number [address] [address] DIRECTOR Caden Gamboa MD * HEPATITIS B SURFACE ANTIGEN (05/20/2022 1:52 PM EDT) Hepatitis B virus surface Ag NON-REACTI VE NON-REACT [facility] 05/20/2022 1:52 PM EDT 05/20/2022 11:24 PM EDT Narrative Resulting Agency Comment [id number] Elena Arguello MD LABORATORY Final R esult Performing Organization Address [facility]/ZIP Co de Phone Number [facility] [address] [place] [address] * SYPHILIS (FTA) ANTIBODY CASCADING REFLEX TO RPR/TITER (*PREFERRED SCREEN*) (05/20/2022 1:52 PM EDT) Treponema pallidum Ab NEGATIVE NEGATIVE [facility] Comment: No antibodies to T. pallidum (the agent causing syphilis) were detected in the specimen. This result, however, does not exclude very recent T. pallidum infection; testing of a second specimen, collected 2-4 weeks after this specimen, is recommended if the index of suspicion for recent infection is high. 05/20/2022 1:52 PM EDT 05/20/2022 11:24 PM EDT Narrative Resulting Agency Comment [id number] Elena Arguello MD LABORATORY Final R esult [facility] [address] [place] [address] documented in this encounter Visit Diagnoses Diagnosis Other microscopic hematuria Screen for STD (sexually transmitted disease) Screening examination for venereal disease Thickened endometrium Nonspecific (abnormal) findings on radiological and other examination of genitourinary organs Cervical cancer screening Screening for malignant neoplasm of the cervix documented in this encounter Care Teams Production Service Manager Relationship Specialty Start Date End Date Hayley Spear, ANTONIO [address] [address] PCP - General Geriatrics 05/12/22 12/06/22 Ozzy Saucedo MD [address] [place] [address] PCP - General Family Medicine 12/07/22 08/05/24 Provider, [facility] PCP - Backup PCP 12/09/22 Juan A Suresh MD [address] [place] [address] PCP - General 08/06/24 Padmini Patricia [facility] Assistants 04/01/23 07/30/23 documented as of this encounter
--- OUTSIDE RECORDS SUMMARY | 2024-09-17 09:52 | XMS_ITS | Data Portability ---
Author Organization [facility] Address [address] [place] [address] Assessment Encounter Date Assessment Date Assessment LastModified by Organization Details LastModified Time 05/10/2018 05/10/2018 Ms. San is suffering with neck pain associated with multilevel cervical spondylosis. She has successfully quit all nicotine products since her last encounter. She did have an issue with Suboxone and is not being treated by the [facility] any more. She denies any culpability for not being able to go back there. She states that they told her We have nothing more to offer you. She will need to have a painter mirror follow her if we are to consider any elective cervical spine surgery. I gave her a very candid assessment of appropriate expectations with any elective cervical spine surgery. No guarantees of success and continuous churn buttermaker relief were provided. As mentioned previously we could consider one versus three level ACDF. We will only offer up to seven days of narcotic pain medications and longer management will have to be carried out by a formal pain clinic. I think that this will have to be straightened out before we will consider an elective surgery. In my opinion, her imaging findings are moderate and therefore, I told her to expect mild to moderate relief and her pain will definitely get worse in the perioperative period before it possibly improves. We will see if we can find a pain clinic provider who takes her insurance and is willing to take on her challenging case. I have already reached out to couple who are unable to help. I answered all of her questions to the best of my abilities. [email or web address] Not available 05/10/2018 16:12:40 04/23/2019 04/23/2019 Teaching attending note: reviewed with Dr Samaniego..virgilio dee with documentation & plan/fm [email or web address] Not available 04/24/2019 10:20:11 Plan of Treatment Reminders Order Date Submit Date Provider Last Modified By Organization Details Last Modified Time Details Appointments None recorded. Lab anticardiol ipin igg+igm+iga Ab, serum 2018 [facility] [employer], [address] [place], [address], 9 16:37:15 lupus anticoagula nt, plasma 2018 [facility] [employer], [address] [place], [address], 9 15:35:58 beta-2 glycoprotei n 1 iga+igg+igm Ab, serum 2018 [facility] [employer], [address] [place], [address], 9 02:14:30 FSH (follicle-s timulating hormone), serum 2018 [facility], [address] [place], [address], 9 17:55:26 lh (luteinizin g hormone), serum 2018 [facility] [employer], [address] [place], [address], 9 17:55:25 prolactin, serum 2018 [facility] [employer], [address] [place], [address], 9 17:55:27 TSH, ultra-sensi tive, serum 2018 [facility], [address] [place], [address], 9 17:55:24 bacterial vaginosis panel, vaginal 2017 018 [facility] [address] [place], [address], 8 14:00:08 shell sp DNA, vaginal 2017 018 [email or web address] [facility] [address] [place] [address], [address], 8 15:07:39 CT + NG + TV, DNA, urine/swab 2017 018 [facility] [address] [place] [address], [address], 8 14:00:07 urinalysis, dipstick, auto 2017 018 [facility] [employer] Orders (For In-Office Services Only), [address] [place], [address], 8 13:00:04 culture, urine 2017 018 [facility], [address] [facility], [place], [address], 8 01:48:27 Referral gynecologis t referral 2017 018 [email or web address] Vyas MD ([facility]), [address] [place], [address], 8 14:10:24 pain management referral 2017 018 [place], [address] [facility], [facility] [address], [place], [address], 8 14:51:14 pain management referral 2017 018 YASMINE Sibley MD, [address], [address], [address], 8 01:45:49 pain management referral - For referral assistance please call Jo-Ann at 2017 [email or web address] [facility], [address], [address], [place], [address], 9 10:03:22 Procedures None recorded. Surgeries None recorded. Imaging US, transvagina l 2017 018 [email or web address] [facility] [address], [place], [address], 8 14:10:19 Medication Orders tramadol 50 mg tablet 2017 018 [email or web address] [id number], [address] [facility], [place], [address], 8 10:24:27 Patient Targets Encounter Date Encounter Id Patient Goals Patient Target Last Modified By Organization Details Last Modified Time improvement pelvic pain [email or web address] Not available 07/06/2018 13:08:39 Patient Instructions Encounter Date Encounter Id Patient Instructions Last Modified By Organization Details Last Modified Time 03/22/2018 [id number] Spent 25mins >50 % of apt spent with patient discussed labs (if applicable)/Imagin g (if applicable)/I discussed medication side effects and possible drug interactions and instructions for taking the medications. Also discussed consequences of not taking the medications. Discussed need for follow up care. Patient verbalized understanding. Anxiety/Depression ? Patient advised to continue medications, avoid abruptly stopping or changing medications without consulting office. Medication side effects discussed with patient. If seeing a counselor, continue seeing them regularly for coping skills and strategies. Advised if any acute SI/HI/AV hallucinations then to call 911 or report to ER or if able report to PSYCHIATRIC. Pt advised to avoid using ETOH, illicit drugs or other substances. Advised patient to follow healthy lifestyle changes to help promote emotional wellness. Not available 03/27/2018 17:27:03 05/10/2018 [id number] Fifteen (15) minutes was spent face to face with the patient, greater than 50% of this time was spent in counseling the patient on her condition, explaining her radiographic studies, and discussing our future treatment plan. [email or web address] Not available 05/10/2018 14:53:31 05/31/2018 [id number] starting a weigh t loss plan: care instructions [email or web address] Not available 05/31/2018 10:16:43 Spent 25mins >50 % of apt spent with patient discussed labs (if applicable)/Imagin g (if applicable)/I discussed medication side effects and possible drug interactions and instructions for taking the medications. Also discussed consequences of not taking the medications. Discussed need for follow up care. Patient verbalized understanding. [email or web address] Not available 05/31/2018 13:40:36 07/06/2018 [id number] blood in urine ( on menses) urine c&S to lab, denies dysuria/cvat/fever , Endometroisis offered ocp to help with menses cycle/pelvic pain declines desires , Pelvic pain comfort measures reviewed, fu ER severe pain, per consult dr goodman no rx tramadol today , otc meds given pt desires will fu dr goodman to discuss endometriosis /hx recurrent sab [email or web address] Not available 07/06/2018 13:11:34 see pt instructions [email or web address] Not available 07/06/2018 13:11:04 04/23/2019 [id number] A healthy lifestyle: care instructions [email or web address] Not available 04/23/2019 09:27:48 Reason for Referral Pain Management Referral for Cervical radiculopathy For referral assistance please call Jo-Ann at [phone] Referring Physician: [facility], Encounter Date: 03/22/2018 Pain Management Referral for Cervical spondylosis with myelopathy eval and treat Referring Physician: Pierre Ramirez, Neurosurgery, Encounter Date: 05/10/2018 Automatic Drill Operator Referral for Hi story of endometriosis Referring Physician: [facility], Encounter Date: 05/31/2018 Pain Management Referral for Chronic neck pain Referring Physician: [facility], Encounter Date: 05/31/2018 Results Created Date Observation Date Name Description Value Unit Range Abnormal Flag Note LastModifiedBy Organization Detail LastModifiedTime 06/12/20 18 06/12/2018 CMP, serum or plasm a glucose 123 mg/dL 65-139 normal Non-f astin g refer ence inter ayala Not Available [facility] [address] [place], [address], 06/12/2018 22:11:46 06/12/20 18 06/12/2018 CMP, serum or plasm a urea nitrogen (BUN) 10 mg/dL 7-25 normal Not Available [facility] [address], [place], [address], 06/12/2018 22:11:46 06/12/20 18 06/12/2018 CMP, serum or plasm a creatinine 0.62 mg/dL 0.50-1 .10 normal Not Available [facility] [address], [place], [address], 06/12/2018 22:11:46 06/12/20 18 06/12/2018 CMP, serum or plasm a eGFR non-afr. spanish 115 mL/mi n/1.7 3m2 > or = 60 normal Not Available [facility] [address], [place], [address], 06/12/2018 22:11:46 06/12/20 18 06/12/2018 CMP, serum or plasm a eGFR 134 mL/mi n/1.7 3m2 > or = 60 normal Not Available [facility] [address], [place], [address], 06/12/2018 22:11:46 06/12/20 18 06/12/2018 CMP, serum or plasm a BUN/creatini ne ratio NOT APPLIC ABLE (calc ) 6-22 Not Available [facility] [address], [place], [address], 06/12/2018 22:11:46 06/12/20 18 06/12/2018 CMP, serum or plasm a sodium 141 mmol/ L 135-14 6 normal Not Available [facility] [address], [place], [address], 06/12/2018 22:11:46 06/12/20 18 06/12/2018 CMP, serum or plasm a potassium 4.1 mmol/ L 3.5-5. 3 normal Not Available [facility] [address], [place], [address], 06/12/2018 22:11:46 06/12/20 18 06/12/2018 CMP, serum or plasm a chloride 110 mmol/ L 98-110 normal Not Available [facility] [address], [place], [address], 06/12/2018 22:11:46 06/12/20 18 06/12/2018 CMP, serum or plasm a carbon dioxide 23 mmol/ L 20-32 normal Not Available [facility] [address], [place], [address], 06/12/2018 22:11:46 06/12/20 18 06/12/2018 CMP, serum or plasm a calcium 9.2 mg/dL 8.6-10 .2 normal Not Available [facility] [address], [place], [address], 06/12/2018 22:11:46 06/12/20 18 06/12/2018 CMP, serum or plasm a protein, total 6.7 g/dL 6.1-8. 1 normal Not Available [facility] [address], [place], [address], 06/12/2018 22:11:46 06/12/20 18 06/12/2018 CMP, serum or plasm a albumin 4.2 g/dL 3.6-5. 1 normal Not Available [facility] [address], [place], [address], 06/12/2018 22:11:46 06/12/20 18 06/12/2018 CMP, serum or plasm a globulin 2.5 g/dL_ (calc ) 1.9-3. 7 normal Not Available [facility] [address], [place], [address], 06/12/2018 22:11:46 06/12/20 18 06/12/2018 CMP, serum or plasm a albumin/glob ulin ratio 1.7 (calc ) 1.0-2. 5 normal Not Available [facility] [address], [place], [address], 06/12/2018 22:11:46 06/12/20 18 06/12/2018 CMP, serum or plasm a bilirubin, total 0.6 mg/dL 0.2-1. 2 normal Not Available [facility] [address], [place], [address], 06/12/2018 22:11:46 06/12/20 18 06/12/2018 CMP, serum or plasm a alkaline phosphatase 52 U/L 33-115 normal Not Available [facility] [address], [place], [address], 06/12/2018 22:11:46 06/12/20 18 06/12/2018 CMP, serum or plasm a AST 15 U/L 10-30 normal Not Available [facility] [address], [place], [address], 06/12/2018 22:11:46 06/12/20 18 06/12/2018 CMP, serum or plasm a ALT 9 U/L 6-29 normal Not Available [facility] [address], [place], [address], 06/12/2018 22:11:46 06/12/20 18 06/12/2018 CBC w/ auto diff white blood cell count 5.9 thous and/u L 3.8-10 .8 normal Not Available [facility] [address], [place], [address], 06/12/2018 22:11:47 06/12/20 18 06/12/2018 CBC w/ auto diff red blood cell count 4.14 nirav on/uL 3.80-5 .10 normal Not Available [facility] [place] [facility] [address], [place], [address], 06/12/2018 22:11:47 06/12/20 18 06/12/2018 CBC w/ auto diff hemoglobin 12.7 g/dL 11.7-1 5.5 normal Not Available [facility] [place] [facility] [address], [place], [address], 06/12/2018 22:11:47 06/12/20 18 06/12/2018 CBC w/ auto diff hematocrit 39.2 % 35.0-4 5.0 normal Not Available [facility] [place] [facility] [address], [place], [address], 06/12/2018 22:11:47 06/12/20 18 06/12/2018 CBC w/ auto diff MCV 94.7 fL 80.0-1 00.0 normal Not Available [facility] [place] [facility] [address], [place], [address], 06/12/2018 22:11:47 06/12/20 18 06/12/2018 CBC w/ auto diff MCH 30.7 pg 27.0-3 3.0 normal Not Available [facility] [place] [facility] [address], [place], [address], 06/12/2018 22:11:47 06/12/20 18 06/12/2018 CBC w/ auto diff MCHC 32.4 g/dL 32.0-3 6.0 normal Not Available [facility] [place] [facility] [address], [place], [address], 06/12/2018 22:11:47 06/12/20 18 06/12/2018 CBC w/ auto diff RDW 11.5 % 11.0-1 5.0 normal Not Available [facility] [place] [facility] [address], [place], [address], 06/12/2018 22:11:47 06/12/20 18 06/12/2018 CBC w/ auto diff platelet count 357 thous and/u L 140-40 0 normal Not Available [facility] [place] [facility] [address], [place], [address], 06/12/2018 22:11:47 06/12/20 18 06/12/2018 CBC w/ auto diff MPV 10.9 fL 7.5-12 .5 normal Not Available [facility] [place] [facility] [address], [place], [address], 06/12/2018 22:11:47 06/12/20 18 06/12/2018 CBC w/ auto diff absolute neutrophils 2525 cells /uL 1500-7 800 normal Not Available [facility] [place] [facility] [address], [place], [address], 06/12/2018 22:11:47 06/12/20 18 06/12/2018 CBC w/ auto diff absolute lymphocytes 2732 cells /uL 850-39 00 normal Not Available [facility] [address], [place], [address], 06/12/2018 22:11:47 06/12/20 18 06/12/2018 CBC w/ auto diff absolute monocytes 502 cells /uL 200-95 0 normal Not Available [facility] [place] [facility] [address], [place], [address], 06/12/2018 22:11:47 06/12/20 18 06/12/2018 CBC w/ auto diff absolute eosinophils 112 cells /uL 15-500 normal Not Available [facility] [address], [place], [address], 06/12/2018 22:11:47 06/12/20 18 06/12/2018 CBC w/ auto diff absolute basophils 30 cells /uL 0-200 normal Not Available [facility] [place] [facility] [address], [place], [address], 06/12/2018 22:11:47 06/12/20 18 06/12/2018 CBC w/ auto diff neutrophils 42.8 % normal Not Available [facility] [place] [facility] [address], [place], [address], 06/12/2018 22:11:47 06/12/20 18 06/12/2018 CBC w/ auto diff lymphocytes 46.3 % normal Not Available [facility] [place] [facility] [address], [place], [address], 06/12/2018 22:11:47 06/12/20 18 06/12/2018 CBC w/ auto diff monocytes 8.5 % normal Not Available [facility] [place] [facility] [address], [place], [address], 06/12/2018 22:11:47 06/12/20 18 06/12/2018 CBC w/ auto diff eosinophils 1.9 % normal Not Available [facility] [place] [facility] [address], [place], [address], 06/12/2018 22:11:47 06/12/20 18 06/12/2018 CBC w/ auto diff basophils 0.5 % normal Not Available [facility] [place] [facility] [address], [place], [address], 06/12/2018 22:11:47 07/06/20 18 07/09/2018 cultu re, urine culture, urine, routine SEE NOTE CULTU RE, URINE , ROUTI NE MICRO NUMBE R: [id number] TEST STATU S: FINAL SPECI MEN SOURC E: URINE SPECI MEN QUALI TY: ADEQU ATE RESUL T: Multi ple organ isms prese nt, each less than 10,00 0 CFU/m L. These organ isms, commo nly found on exter nal and inter nal genit ramiro, are consi dered to be colon izers . No furth er testi ng perfo rmed. Not Available [facility] [place] [facility] [address], [place], [address], 07/09/2018 01:48:27 07/06/20 18 07/08/2018 CT + NG + TV, DNA, urine /swab chlamydia trachomatis by real-time PCR (reflex to azithromycin resistance by pyrosequenci pito) Negati ve normal Swab- 1 Vag/C erv Not Available [facility] [address] [place] [address], [address], 07/10/2018 14:00:07 07/06/20 18 07/08/2018 CT + NG + TV, DNA, urine /swab trichomonas vaginalis by real-time PCR (reflex to metronidazol e resistance) Negati ve normal Swab- 1 Vag/C erv Not Available [facility] [address] [place] [address], [address], 07/10/2018 14:00:07 07/06/20 18 07/08/2018 CT + NG + TV, DNA, urine /swab neisseria gonorrhoeae by real-time PCR (reflex to antibiotic resistance by molecular analysis) Negati ve normal Swab- 1 Vag/C erv Not Available [facility] [address] [place] [address], [address], 07/10/2018 14:00:07 07/06/20 18 07/08/2018 bacte rial vagin osis panel , vagin al gardnerella vaginalis by real-time PCR Negati ve normal Swab- 1 Vag/C erv Not Available [facility] [address] [place] [address], [address], 07/10/2018 14:00:08 07/06/20 18 07/08/2018 bacte rial vagin osis panel , vagin al atopobium vaginae by real-time PCR Negati ve normal Swab- 1 Vag/C erv Not Available [facility] [address] [place] [address], [address], 07/10/2018 14:00:08 07/06/20 18 07/08/2018 bacte rial vagin osis panel , vagin al bacterial vaginosis associated bacterium 2 (bvab2) by real-time PCR Negati ve normal Swab- 1 Vag/C erv Not Available [facility] [address] [place] [address], [address], 07/10/2018 14:00:08 07/06/20 18 07/08/2018 bacte rial vagin osis panel , vagin al megasphaera species (type 1 and type 2) by real-time PCR Negati ve normal Swab- 1 Vag/C erv Type1 :Nega tive Type2 :Nega tive. Not Available [facility] [address] [place] [address], [address], 07/10/2018 14:00:08 07/06/20 18 07/08/2018 bacte rial vagin osis panel , vagin al lactobacillu s (bv & av panel) by real time PCR See Commen t normal Swab- 1 Vag/C erv L.cri spatu s: Negat tamara L.heide senii : Negat tamara L.gas seri : Negat tamara L.ine rs : Negat tamara. Not Available [facility] [address] [place] [address], [address], 07/10/2018 14:00:08 07/06/20 18 07/08/2018 solo da sp DNA, vagin al shell parapsilosis by real-time PCR Negati ve normal Swab- 1 Vag/C erv Not Available [facility] [address] [place] [address], [address], 07/10/2018 14:00:07/06/20 18 07/08/2018 solo da sp DNA, vagin al shell glabrata by real-time PCR Negati ve normal Swab- 1 Vag/C erv Not Available [facility] [address] [place] [address], [address], 07/10/2018 14:00:09 07/06/20 18 07/09/2018 solo da sp DNA, vagin al shell albicans by real-time PCR Negati ve normal Swab- 1 Vag/C erv Not Available [facility] [address] [place] [address], [address], 07/10/2018 14:00:09 07/06/20 18 07/10/2018 solo da sp DNA, vagin al shell tropicalis by real-time PCR Negati ve normal Swab- 1 Vag/C erv Not Available [facility] [address] [place] [address], [address], 07/10/2018 14:00:09 07/06/20 18 07/06/2018 urina lysis , dipst ick, auto Leukocytes Negati ve Not Available [facility] [employer] Orders (For In-Office Services Only) [address] [place], [address], 07/06/2018 10:15:25 07/06/20 18 07/06/2018 urina lysis , dipst ick, auto Nitrate negati ve Not Available [facility] [employer] Orders (For In-Office Services Only) [address] [place], [address], 07/06/2018 10:15:25 07/06/20 18 07/06/2018 urina lysis , dipst ick, auto Urobilinogen 0.2mg/ dL Not Available [facility] [employer] Orders (For In-Office Services Only) [address] [place], [address], 07/06/2018 10:15:25 07/06/20 18 07/06/2018 urina lysis , dipst ick, auto Specific [place] 1.030 Not Available [facility] [employer] Orders (For In-Office Services Only) [address] [place], [address], 07/06/2018 10:15:25 07/06/20 18 07/06/2018 urina lysis , dipst ick, auto Ketone Trace (5) Not Available [facility] [employer] Orders (For In-Office Services Only) [address] [place], [address], 07/06/2018 10:15:25 07/06/20 18 07/06/2018 urina lysis , dipst ick, auto Blood Hemoly zed: Large (+++) Not Available [facility] [employer] Orders (For In-Office Services Only) [address] [place], [address], 07/06/2018 10:15:25 07/06/20 18 07/06/2018 urina lysis , dipst ick, auto pH 5.0 Not Available [facility] [employer] Orders (For In-Office Services Only) [address] [place], [address], 07/06/2018 10:15:25 07/06/20 18 07/06/2018 urina lysis , dipst ick, auto Protein Negati ve Not Available [facility] [employer] Orders (For In-Office Services Only) [address] [place], [address], 07/06/2018 10:15:25 07/06/20 18 07/06/2018 urina lysis , dipst ick, auto Bilirubin Negati ve Not Available [facility] [employer] Orders (For In-Office Services Only) [address] [place], [address], 07/06/2018 10:15:25 07/06/20 18 07/06/2018 urina lysis , dipst ick, auto Glucose Negati ve Not Available [facility] [employer] Orders (For In-Office Services Only) [address] [place], [address], 07/06/2018 10:15:25 07/06/20 18 07/06/2018 urina lysis , dipst ick, auto Appearance Slight ly Cloudy Not Available [facility] Marisel lipscomb [facility] [employer] Orders (For In-Office Services Only) [address] [place], [address], 07/06/2018 10:15:25 07/06/20 18 07/06/2018 urina lysis , dipst ick, auto Color Dark Yellow Not Available [facility] S deisi [facility] [employer] Orders (For In-Office Services Only) [address] [place], [address], 07/06/2018 10:15:25 04/23/20 19 04/23/2019 TSH, ultra -sens itive , serum TSH - ultra sensitive (3rd gen.) 2.893 mcint unit/ mL 0.340- 5.600 normal Not Available [facility] [address] [place], [address], 04/23/2019 17:55:24 04/23/20 19 04/23/2019 lh (lute inizi ng hormo ne), serum luteinizing hormone 0.5 mintu nit/m L + Inter preta tive data: Refer ence Range s for LH Males : 1.2 - 8.6 mIU/m l Femal es: Mid-F ollic ular Phase : 2.1 - 10.9 mIU/m l Mid-C ycle Peak: 19.2 - 103.0 mIU/m l Mid-L uteal Phase : 1.2 - 12.9 mIU/m l Postm enopa usal: 10.9 - 58.6 mIU/m l Not Available [facility] [address] [place], [address], 04/23/2019 17:55:25 04/23/20 19 04/23/2019 FSH (foll icle- stimu latin g hormo ne), serum follicle stimulating hormone 1.1 mintu nit/m L + Inter preta tive data: FSH Refer ence Range s: Males : 1.3 - 19.3 mIU/m l Femal es: Mid-F ollic ular Phase : 3.9 - 8.8 mIU/m l Mid-C ycle Peak: 4.5 - 22.5 mIU/m l Mid-L uteal Phase : 1.8 - 5.1 mIU/m l Postm enopa usal: 16.7 - 113.6 mIU/m l Not Available [facility] [address] [place], [address], 04/23/2019 17:55:26 04/23/20 19 04/23/2019 prola ctin, serum prolactin 20.2 NG/mL 3.3-26 .7 normal Not Available [facility] [address] [place], [address], 04/23/2019 17:55:27 04/23/20 19 04/24/2019 antic ardio lipin igg+i gm+ig a Ab, serum cardiolipin IgG-arup 4 gpl 0-14 INTER PRETI VE INFOR MATIO N: Anti- Cardi olipi n IgG Ab 0-14 GPL: Negat tamara 15-19 GPL: Indet ermin ate 20-80 GPL: Low to Moder ately Posit tamara 81 GPL or above : High Posit tamara The persi stent prese nce of IgG and/o r IgM cardi olipi n (CL) antib odies in moder ate or high level s (grea ter than 40 GPL and/o r great er than 40 MPL units or great er than 99th perce ntile ) is a labor atory crite sukhjinder for the diagn osis of antip hosph olipi d syndr ome (APS) . Persi stenc e is defin ed as moder ate or high level s of IgG and/o r IgM CL antib odies detec gildardo in two or more speci mens drawn at least 12 weeks apart ([address]. 2006; 4:295 -306) . Lower posit tamara level s of IgG and/o r IgM CL antib odies (abov e cutof f but less than 40 GPL and/o r less than 40 MPL units ) may occur in patie nts with the clini fadia sympt oms of APS; there fore, the actua l signi fican ce of these level s is undef ined. Resul ts shoul d not be used alone for diagn osis and must be inter prete d in light of APS-s pecif ic clini fadia manif estat ions and/o r other crite sherice phosp holip id antib jennifer tests . Not Available [facility] [address] [place], [address], 04/24/2019 16:37:15 04/23/20 19 04/24/2019 antic ardio lipin igg+i gm+ig a Ab, serum cardiolipin IgM-arup 4 mpl 0-12 INTER PRETI VE INFOR MATIO N: Anti- Cardi olipi n IgM 0-12 MPL: Negat tamara 13-19 MPL: Indet ermin ate 20-80 MPL: Low to Moder ately Posit tamara 81 MPL or above : High Posit tamara The persi stent prese nce of IgG and/o r IgM cardi olipi n (CL) antib odies in moder ate or high level s (grea ter than 40 GPL and/o r great er than 40 MPL units or great er than 99th perce ntile ) is a labor atory crite sukhjinder for the diagn osis of antip hosph olipi d syndr ome (APS) . Persi stenc e is defin ed as moder ate or high level s of IgG and/o r IgM CL antib odies detec gildardo in two or more speci mens drawn at least 12 weeks apart ([address]. 2006; 4:295 -306) . Lower posit tamara level s of IgG and/o r IgM CL antib odies (abov e cutof f but less than 40 GPL and/o r less than 40 MPL units ) may occur in patie nts with the clini fadia sympt oms of APS; there fore, the actua l signi fican ce of these level s is undef ined. Resul ts shoul d not be used alone for diagn osis and must be inter prete d in light of APS-s pecif ic clini fadia manif estat ions and/o r other crite sherice phosp holip id antib jennifer tests . Not Available [facility] [address] [place], [address], 04/24/2019 16:37:15 04/23/20 19 04/24/2019 antic ardio lipin igg+i gm+ig a Ab, serum cardiolipin IgA-arup 2 apl_u nit/m L 0-11 INTER PRETI VE INFOR MATIO N: Cardi olipi n Antib odies , IgA 0-11 APL: Negat tamara 12-19 APL: Indet ermin ate 20-80 APL: Low to Moder ately Posit tamara 81 APL or above : High Posit tamara Perfo rmed by [facility], [address], [facility] [place] [address] [phone] [email or web address] [facility] , Chema Norman do, MD - Lab. Dire tor Not Available [facility] [address] [place], [address], 04/24/2019 16:37:15 04/23/20 19 04/25/2019 beta- 2 glyco prote in 1 iga+i gg+ig m Ab, serum [id number] in 1 IgG 0 sgu 0-20 Not Available [facility] [address] [place], [address], 04/25/2019 02:14:30 04/23/20 19 04/25/2019 beta- 2 glyco prote in 1 iga+i gg+ig m Ab, serum [id number] in 1 IgM 0 smu 0-20 INTER PRETI VE INFOR MATIO N: B2Gly copro tein I, IgG and IgM Antib jennifer The persi stent prese nce of IgG and/o r IgM beta 2 glyco prote in I (B2GP I) antib odies (grea ter than 99th perce ntile ) is a labor atory crite sukhjinder for the diagn osis of antip hosph olipi d syndr ome (APS) . Persi stenc e is defin ed as moder ate or high level s of IgG and/o r IgM B2GPI antib odies detec gildardo in two or more speci mens drawn at least 12 weeks apart ([address]. 2006; 4:295 -306) . B2GPI resul ts great er than 20 SGU (IgG) and/o r SMU (IgM) are consi dered posit tamara based on the cutof f value s estab lishe d for this test. Inter natio nal refer ence mater ials and conse nsus units for anti- B2GPI antib odies have not been estab lishe d (Clin Maycol Acta. 2012; 413(1 -2):3 58-60 ; Arthr itis Rheum . 2012; 64(1) :1-10 .). Andra g clini fadia corre latio n is recom marcelo d for a diagn osis of APS. Low posit tamara IgG and IgM B2GPI antib jennifer level s shoul d be inter prete d in light of APS-s pecif ic clini fadia manif estat ions and/o r other crite sherice phosp holip id antib jennifer tests . Not Available [facility] [address] [place], [address], 04/25/2019 02:14:30 04/23/2004/25/2019 beta- 2 glyco prote in 1 iga+i gg+ig m Ab, serum i5wpcgxgvybj in 1 IgA 2 melyssa 0-20 Perfo rmed by [facility], [address], [facility] [place] [address] [phone] [email or web address] , Chema Norman do, MD - Lab. Direc tor Not Available [facility] [address] [place], [address], 04/25/2019 02:14:30 04/23/2004/26/2019 lupus antic oagul ant, plasm a anticoagulan t given to patient NONE Not Available [facility] [address] [place], [address], 04/26/2019 15:35:58 04/23/20 19 04/26/2019 lupus antic oagul ant, plasm a thrombin time 14.7 sec 10.3-1 6.6 normal Inter p+ An eleva gildardo Throm bin Time sugge sts the prese nce of antic oagul ant drugs such as hepar in or direc t throm bin inhib itors , such as argat roban and dabig ratan . Other facto rs which may cause an eleva gildardo Throm bin Time inclu de dysfi brino genem ia, marke d hypof ibrin ogene florecita, marke dly eleva gildardo D-Dim er level s, antib odies to bovin e throm bin, and monoc lonal immun oglob ulins . Not Available [facility] [address], [address], 04/26/2019 15:35:58 04/23/20 19 04/26/2019 lupus antic oagul ant, plasm a drvvt screen ratio 0.79 <=1.20 normal Not Available [facility] [address], [address], 04/26/2019 15:35:58 04/23/2004/26/2019 lupus antic oagul ant, plasm a drvvt alpha dRVVT Screen Ratio Negati ve Not Available [facility] [address], [address], 04/26/2019 15:35:58 04/23/2004/26/2019 lupus antic oagul ant, plasm a drvvt interpretati on dRVVT Scree n Ratio Negat tamara Lupus antic oagul ant not detec gildardo by dRVVT metho d. dRVVT testi ng may not be valid for patie nts antic oagul ated with Hepar in, Couma din or other direc t throm bin inhib itors . Accor ding to ISTH (Inte rnati onal Socie ty on Throm bosis and Hemos tasis ) guide lines for Lupus Antic oagul ant testi ng, two phosp holip id-de pende nt clott ing assay s, based on diffe rent metho dolog ies shoul d be used to demon strat e phosp holip id depen dence . Inter ferin g facto rs, such as facto r defic ienci es, facto r inhib itors , hepar in, and oral antic oagul ants shoul d be exclu ded. For this reaso n, a Throm bin Time has been inclu ded with this study . Resul ts from this study shoul d be evalu ated cauti ously if the Throm bin Time is above refer ence range . Of the two metho ds emplo yed here, DRVVT and Silic a Clott ing Time (PTT- based assay ), a posit tamara resul t with eithe r metho d is confi rmed by Beta- 2 glyco prote in calin sis, and it is recom marcelo d to follo w-up with a secon d Lupus Antic oagul ant Study in at least 12 weeks . If testi ng by DRVVT and Silic a Clott ing Time does not demon strat e Lupus Antic oagul ant, no furth er testi ng for Lupus Antic oagul ant is recom marcelo d. Furth er testi ng may be neede d for facto r defic ienci es or inhib itors if warra nted by the physi sinan. Not Available [facility] [address] [place], [address], 04/26/2019 15:35:58 04/23/20 19 04/26/2019 xiomara lized silic a clott ing time, plate let poor plasm a silica clotting time norm ratio 0.92 <=1.16 normal Not Available [facility] [address] [place], [address], 04/26/2019 15:36:00 04/23/20 19 04/26/2019 xiomara lized silic a clott ing time, plate let poor plasm a sct alpha SCT Ratio is negati ve Not Available [facility] [address], [address], 04/26/2019 15:36:00 04/23/20 19 04/26/2019 xiomara lized silic a clott ing time, plate let poor plasm a silica clotting time interp Lupus antic oagul ant not detec gildardo by Silic a Clott ing Time metho d. SCT testi ng may not be valid for patie nts antic oagul ated with Hepar in, Couma din or other direc t throm bin inhib itors . Not Available [facility] [address] [place], [address], 04/26/2019 15:36:00 05/11/20 18 05/10/2018 XR, cervi fadia spine No observ ation record ed. [facility] [address], [place], [address], 05/12/2018 10:39:23 07/03/20 18 06/26/2018 US, trans vagin al No observ ation record ed. [facility] [employer] Orders (For In-Office Services Only) [address] [place], [address], 07/03/2018 17:18:40 Result Notes None recorded. Problems Name Problem SNOMED Code Status Onset Date Resolution Date Notes Provider Name and Address Organization Details Recorded Time Body mass index 30+ - obesity 426645699 Active Not Available [facility] 9 04:56:10 Posttrauma tic stress disorder 18365556 Active Not Available [facility] 9 04:56:10 Chronic post-traum atic stress disorder 607070152 Active Not Available [facility] 9 04:56:10 Chronic anxiety 729806308 Active Not Available [facility] 9 04:56:10 Chronic sinusitis 05417450 Active Not Available [facility] 9 04:56:10 Abnormal weight gain 216053493 Active Not Available [facility] 9 04:56:10 Chronic neck pain 6767178021955 Active RAHUL FRANCO MD [address], [place], [address] , [facility] [place] 6 14:49:11 Chronic anemia 767395092 Active Not Available [facility] 9 04:56:10 Gastroesop hageal reflux disease 117232078 Active Not Available [facility] 9 04:56:10 Sleep apnea 50515605 Active Not Available [facility] 9 04:56:10 Shoulder pain 42989372 Active Not Available [facility] 9 04:56:10 Chronic pain syndrome 592396658 Active Not Available [facility] 9 04:56:10 Cough 81781408 Active Not Available [facility] 9 04:56:11 Cervical radiculopa thy 43195766 Active Not Available [facility] 9 04:56:10 Loss of hair 836388470 Active Not Available [facility] 9 04:56:10 Folliculit is 44119629 Active Not Available [facility] 9 04:56:10 Hyperlipid emia 29387777 Active Not Available [facility] 9 04:56:10 Vitamin D deficiency 68557979 Active Not Available [facility] 9 04:56:10 Insomnia 843284509 Active Not Available [facility] 9 04:56:10 Acute sinusitis 06752756 Active Not Available [facility] 9 04:56:10 Upper respirator y infection 40900097 Active Not Available [facility] 9 04:56:10 Nasal deviation 091917615 Active Not Available [facility] 9 04:56:10 Acute bronchitis 98692774 Active Not Available [facility] 9 04:56:10 Chronic back pain 588444022 Active Not Available [facility] 9 04:56:10 Cervical radiculiti s 72728207 Active 2016 Not Available [facility] 9 04:56:10 Cervical spondylosi s with myelopathy Active 2016 Not Available [facility] 9 04:56:10 Lightheade dness 037297729 Active 2017 Not Available [facility] 9 04:56:10 Monoparesi s - arm 020829130 Active 2017 Not Available [facility] 9 04:56:10 Spinal stenosis in cervical region 06405018 Active 2017 Not Available [facility] 9 04:56:10 Cervical kyphosis 806307175 Active 2017 Not Available [facility] 9 04:56:10 Nicotine dependence 15969006 Active 2017 Not Available [facility] 9 04:56:10 History of endometrio sis 6411751276916 4107 Active 2017 Not Available [facility] 9 04:56:10 Problem Notes Documentation Provider Name and Address Organization Details Recorded Time Neurosurgery Consult Note : [facility] ? [address] [facility] [id number], [place] (id #[id number], : 1980) NEUROSURGERY Date: 05/10/2018RE: Ean San : 1980, PT ID #[id number] Franco MD, I appreciate you allowing us to participate in the care of Ean San on 05/10/2018. I have enclosed a copy of the office evaluation for your records. Once again, thank you for allowing me to participate in the care of this patient. Sincerely, Electronically Signed by: PIERRE RAMIREZ MD NEUROSURGERY Patient Ean San (37yo, F) #[id number] 1980 ? ? ? History of Present Illness Ms. San is a pleasant 37-year-old female who is referred to our clinic by Dr. Henry for cervical radiculopathy. She shares she has been suffering with neck and arm pain for many years with the most recent flare starting approximately 8 months ago with no inciting event. The pain starts in her neck and radiates into her right shoulder right upper arm forearm and into her hand. She has associated numbness and tingling in the upper aspect of her right arm in her right hand that is quite bothersome for her and has been progressive over the last several weeks. Her pain varies from 8-10 out of 10 and is worsened with just activities of daily living. She is very frustrated by the progression of her pain and her inability to do things that she typically would do and enjoy. She gets some relief with Tylenol, hydrocodone, heat, BenGay, and a TENS unit. She has significantly modified her activity over the last several months and is frustrated not being able to exercise and has gained several pounds. She did undergo 6-7 injections with 1 day of relief to no relief. She participated in physical therapy for several weeks with no change in her symptoms she has recently been referred again and is pending insurance approval. She underwent acupuncture that was helpful. She denies fever, chills, gait instability, bowel or bladder habit changes however she is struggling with constipation due to narcotics.(05-10-18) Since our last encounter, she has continued to have debilitating pain. She had been following with [facility] with escalating narcotic requirements. She was referred to a different pain clinic ([facility]) due to a missed appointment. She was prescribed suboxone but unfortunately she had a bad reaction to it and went to the ED. She was referred to . No recent injections. She states that her weakness and numbness are worse. Problem ListReviewed Problems Nicotine dependence - Onset: 01/18/2018 Cervical kyphosis - Onset: 01/18/2018 Spinal stenosis in cervical region - Onset: 01/16/2018 Acute bronchitis Cervical radiculitis - Onset: 05/25/2017 Chronic neck pain Chronic back pain Folliculitis Acute sinusitis Abnormal weight gain Body mass index 30+ - obesity Chronic anemia Chronic anxiety Insomnia Gastroesophageal reflux disease Nasal deviation Monoparesis - arm - Onset: 12/12/2017 Loss of hair Chronic post-traumatic stress disorder Vitamin D deficiency Chronic pain syndrome Lightheadedness - Onset: 11/11/2017 Chronic sinusitis Shoulder pain, Right Posttraumatic stress disorder Cough Upper respiratory infection Cervical radiculopathy Hyperlipidemia Cervical spondylosis with myelopathy - Onset: 06/20/2017 Sleep apnea Medication List Reviewed Medications NameDate Source cyclobenzaprine 10 mg emydtd11/29/18?filled [facility] HYDROcodone 7.5 mg-acetaminophen 325 mg mkkywm41/13/18?filled [facility] Iron 100 Plus11/02/17?entered Elva Teage methylPREDNISolone 4 mg tablets in a dose pack04/29/18?filled [facility] gxuxvauyhjng21/02/16?entered Marilin Matos prazosin 1 mg capsuleTake 1 capsule(s) every day by oral route at bedtime for 30 days.03/22/18?filled [facility] Gdavcdtk73/09/18?entered Roopa Martin sertraline 100 mg tabletTake 1 tablet(s) by oral route for 30 days.03/22/18?filled [facility] Mfsasyk611CF20/20/18?entered Katie Cleary Cma Voltaren 1 % topical gel04/29/18?filled [facility] Some medications listed in Document: #[id number] could not be added to this patient's chart. Please review this document and add these medications to the patient's chart manually as needed. Vitals Ht: 5 ft05/10/2018 12:56 pm Wt: 173 lbs1 01:00 pm BMI: 33.81 01:00 pm BP: 139/92 sitting L arm05/10/2018 01:02 pm Pulse: 72 bpm pudayjc8305/10/2018 01:02 pm RR: 161 01:00 pm T: 98.3 F? ? ? oral05/10/2018 01:00 pm Pain Scale: 1010 01:00 pm Physical ExamPatient is a 37-year-old female. 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 No clonus, Vishal? s negative bilaterally Spurling maneuver positive and good relief with cervical manual traction. Tandem gait intact; Diffuse tenderness throughout the neck and trapezius muscle region, right worse than left. Exaggerated pain responses throughout the exam Results/InterpretationsNo ne recorded Assessment and PlanMs. Jaswinder is suffering with neck pain associated with multilevel cervical spondylosis. She has successfully quit all nicotine products since her last encounter. She did have an issue with Suboxone and is not being treated by the [facility] any more. She denies any culpability for not being able to go back there. She states that they told her We have nothing more to offer you. She will need to have a painter mirror follow her if we are to consider any elective cervical spine surgery. I gave her a very candid assessment of appropriate expectations with any elective cervical spine surgery. No guarantees of success and continuous churn buttermaker relief were provided. As mentioned previously we could consider one versus three level ACDF. We will only offer up to seven days of narcotic pain medications and longer management will have to be carried out by a formal pain clinic. I think that this will have to be straightened out before we will consider an elective surgery. In my opinion, her imaging findings are moderate and therefore, I told her to expect mild to moderate relief and her pain will definitely get worse in the perioperative period before it possibly improves. We will see if we can find a pain clinic provider who takes her insurance and is willing to take on her challenging case. I have already reached out to couple who are unable to help. I answered all of her questions to the best of my abilities. 1. Neck painM54.2: Cervicalgia 2. Opioid qtnsoznrjwB36.20: Opioid dependence, uncomplicated 3. Cervical nhnwdbawiznarT50.12: Radiculopathy, cervical region 4. Cervical spondylosis with qnjpldaexlL37.12: Other spondylosis with myelopathy, cervical region PAIN MANAGEMENT REFERRAL - ?Schedule Within: provider's discretion Reason for Referral: eval and treat Discussion Notes Fifteen (15) minutes was spent face to face with the patient, greater than 50% of this time was spent in counseling the patient on her condition, explaining her radiographic studies, and discussing our future treatment plan. Return to Office ISAEL HENRY MD for Established Patient 30 at [facility] FP 3075 on 05/11/2018 at 08:30 AM ISAEL HENRY MD for Established Patient 30 at [facility] FP 3075 on 05/31/2018 at 09:30 AM Electronically Signed by: PIERRE RAMIREZ MD Documents sent via fax will include the following message: This fax may contain sensitive and confidential personal health information that is being sent for the sole use of the intended recipient. Unintended recipients are directed to securely destroy any materials received. You are hereby notified that the unauthorized disclosure or other unlawful use of this fax or any personal health information is prohibited. To the extent patient information contained in this fax is subject to 42 CFR Part 2, this regulation prohibits unauthorized disclosure of these records. If you received this fax in error, please visit [email or web address] yFax to notify the sender and confirm that the information will be destroyed. If you do not have internet access, please call to notify the sender and confirm that the information will be destroyed. Thank you for your attention and cooperation. [ID:[id number]] [facility] 16:35:35 Procedures Surgical History Date Name Laterality Status Provider Name and Address Organization Details Recorded Time 6 Laparoscopy completed Joann Stein [facility] 07/06/2018 10:22:59 Endoscopy completed Kelli Tejeda [facility] 05/22/2015 09:40:35 Imaging Results Imaging Date Name Status LastModified by Organization Details LastModified Time 05/10/2018 XR, cervical spine completed [facility] [address] [facility], [place], [address], 05/12/2018 10:39:23 06/26/2018 US, transvaginal completed [facility] Phys[facility] [employer] [facility] Orders (For In-Office Services Only) [address] [place], [address], 07/03/2018 17:18:40 Procedure Notes None recorded. Medical Equipment None Reported. Allergies Allergen ID Allergen Name Allergen Category Reaction Reaction Severity Criticality Documentation Date Start Date Code Code System Note Provider Name and Address Organization Details Recorded Time 280668 hydroxyzi ne Not available Not available Not available Not available 07/23/2015 5553 RxNorm Rash Kelli Tejeda [facility] 5 08:14:08 773203 ibuprofen medicatio n Not available Not available Not available 06/02/2016 5640 RxNorm Stoma ch irrit ation [facility] 6 11:45:09 713474 naproxen medicatio n Not available Not available Not available 06/02/2016 7258 RxNorm Stoma ch irrit ation , heart burn [facility] 6 11:45:09 597327 Suboxone medicatio n facial swelling Not available Not available 03/22/2018 36245 0 RxNorm ISAEL HENRY MD [address] [facility],[address], [place], [address] 8 15:14:46 106294 gabapenti n medicatio n decreased blood pressure Not available Not available 07/06/2018 18453 RxNorm Joann Tuzo [facility] 8 10:24:46 Medications Name Sig Start Date Stop Date Status Note LastModified by Organization Details LastModified Time quetiapin e 25 mg tablet TAKE 1 TABLET BY MOUTH DAILY AT BEDTIME FOR INSOMNIA / DEPRESSI ON active Not Available Not Available No t Available cyclobenz aprine 10 mg tablet Take 1 tablet 3 times a day by oral route. active Not Available Not Available No t Available amoxicill in 500 mg capsule Take 1 capsule 3 times a day by oral route for 7 days. 09/27 completed Not Available Not Available Not Available terconazo le 0.4 % vaginal cream Insert 1 applicat orful every day by vaginal route for 7 days. 05/10 completed Not Available Not Available Not Available venlafaxi ne ER 37.5 mg capsule,e xtended release 24 hr TAKE 1 CAPSULE BY MOUTH DAILY DIRECTED active Not Available Not Available No t Available venlafaxi ne ER 75 mg capsule,e xtended release 24 hr TAKE 1 CAPSULE BY MOUTH DAILY DIRECTED active Not Available Not Available No t Available gabapenti n 600 mg tablet 11/11 completed Not Available Not Available Not Available doxycycli ne hyclate 100 mg capsule 02/24 completed Not Available Not Available Not Available trazodone 50 mg tablet 09/27 completed Not Available Not Available Not Available azithromy eulogio 250 mg tablet TAKE 2 TABLETS (500 MG) BY ORAL ROUTE ONCE DAILY FOR 1 DAY THEN 1 TABLET (250 MG) BY ORAL ROUTE ONCE DAILY FOR 4 DAYS ( Antibiot ic ) 09/02 completed Not Available Not Available Not Available IBU 800 mg tablet active Not Available Not Available No t Available alprazola m 1 mg tablet 09/27 completed Not Available Not Available Not Available tizanidin e 4 mg tablet One tab each day at bed time PRN Muscle spasms . Will make drowsy . 09/02 completed Not Available Not Available Not Available fluconazo le 150 mg tablet Take 1 tablet now may repeat one in 72 hours active Not Available Not Available No t Available albuterol sulfate 1.25 mg/3 mL solution for nebulizat ion Inhale 3 mL 3 times a day by inhalati on route as needed. 09/27 completed Not Available Not Available Not Available hydrocodo ne 5 mg-acetam inophen 325 mg tablet active Not Available Not Available Not Available prazosin 1 mg capsule Take 1 capsule every day by oral route at bedtime for 30 days. active Not Available Not Available No t Available dextroamp hetamine- amphetami ne 10 mg tablet active Not Available Not Available Not Available clonazepa m 0.5 mg tablet active Not Available Not Available Not Available sertralin e 100 mg tablet Take 1 tablet by oral route for 30 days. active Not Available Not Available No t Available quetiapin e 200 mg tablet active Not Available Not Available Not Available permethri n 5 % topical cream APPLY (THOROUG HLY MASSAGE INTO SKIN FROM HEAD TO SOLES OF FEET) BY TOPICAL ROUTE ONCE LEAVE ON FOR 8-14 HR, THEN REMOVE BY THOROUGH WASHING, DO ONCE DAILY X 1 WEEK. active Not Available Not Available No t Available topiramat e 25 mg tablet 09/27 completed Not Available Not Available Not Available hydrocodo ne 10 mg-acetam inophen 325 mg tablet Take 1 1 by oral route. active Not Available Not Available No t Available omeprazol e 40 mg capsule,d elayed release TAKE ONE CAPSULE BY MOUTH DAILY DIRECTED 01/06 completed Not Available Not Available Not Available tramadol 50 mg tablet Take 1 tablet every 6 hours by oral route for 10 days. active Not Available Not Available No t Available quetiapin e 100 mg tablet TAKE 1 TABLET BY MOUTH EVERY NIGHT AT BEDTIME active Not Available Not Available No t Available triamcino lone acetonide 0.1 % topical cream active Not Available Not Available Not Available ketorolac 30 mg/mL (1 mL) injection solution Inject 1 mL every 6 hours by intramus cular route. 2014 active Not Available Not Available Not Avai lable Adderall XR 20 mg capsule,e xtended release TAKE 1 CAPSULE BY MOUTH TWICE DAILY active Not Available Not Available No t Available lamotrigi ne 25 mg tablet active Not Available Not Available Not Available Adderall XR 30 mg capsule,e xtended release TAKE 1 CAPSULE BY MOUTH DAILY DIRECTED active Not Available Not Available No t Available prednisol one acetate 1 % eye drops,rita pension 06/07 completed Not Available Not Available Not Available methocarb wayne 750 mg tablet 05/07 completed Not Available Not Available Not Available temazepam 15 mg capsule Take 1 capsule every day by oral route. 05/10 completed Not Available Not Available Not Available oxycodone -acetamin ophen 10 mg-325 mg tablet TAKE 1 TABLET BY MOUTH EVERY 6 HOURS NEEDED active Not Available Not Available No t Available trazodone 100 mg tablet active Not Available Not Available Not Available dicyclomi ne 20 mg tablet active Not Available Not Available Not Available temazepam 30 mg capsule Take 1 capsule every day by oral route for 30 days. 06/15 completed Not Available Not Available Not Available baclofen 10 mg tablet TAKE 1 TABLET BY MOUTH THREE TIMES DAILY WITH FOOD OR MILK active Not Available Not Available No t Available hydrocodo ne 7.5 mg-acetam inophen 325 mg tablet Take 1 1 by oral route. 05/31 completed Not Available Not Available Not Available cephalexi n 500 mg capsule 06/15 completed Not Available Not Available Not Available venlafaxi ne 37.5 mg tablet TAKE 1 TABLET BY MOUTH DAILY DIRECTED active Not Available Not Available No t Available tobramyci n 0.3 % eye drops 06/07 completed Not Available Not Available Not Available buspirone 10 mg tablet active these need to come from her psychiat rist Not Available Not Available Not Available dextroamp hetamine- amphetami ne 20 mg tablet TAKE 1 TABLET BY MOUTH ONCE DAILY active Not Available Not Available No t Available promethaz ine 25 mg tablet 05/10 completed Not Available Not Available Not Available Antivert 25 mg tablet 12/02 completed Not Available Not Available Not Available fluoxetin e 10 mg capsule active Not Available Not Available Not Available docusate sodium 100 mg capsule Take 1 capsule every day by oral route as needed for 30 days. 11/02 completed Not Available Not Available Not Available gabapenti n 300 mg capsule Take 1 capsule every day by oral route at bedtime. 12/07 completed Not Available Not Available Not Available omeprazol e 20 mg capsule,d elayed release 05/07 completed Not Available Not Available Not Available folic acid 1 mg tablet active Not Available Not Available Not Available mupirocin 2 % topical ointment APPLY A SMALL AMOUNT TO THE AFFECTED AREA BY TOPICAL ROUTE 3 TIMES PER DAY ( antibiot ic ointment ) active Not Available Not Available No t Available gabapenti n 100 mg capsule Take 1 capsule 3 times a day by oral route for 30 days. 05/25 completed Not Available Not Available Not Available methylpre dnisolone sodium succinate 125 mg solution for injection 2014 active Not Available Not Available Not Avai lable azelastin e 137 mcg (0.1 %) nasal spray [place] 2 sprays twice a day by intranas al route for 30 days. 01/06 completed Not Available Not Available Not Available ibuprofen 600 mg tablet active Not Available Not Available Not Available levofloxa eulogio 500 mg tablet Take 1 tablet every 24 hours by oral route for 7 days. 05/25 completed Not Available Not Available Not Available levofloxa eulogio 750 mg tablet Take 1 tablet(s ) EVERY DAY by oral route. ( antibiot ic ) active Not Available Not Available No t Available methylpre dnisolone 4 mg tablets in a dose pack 05/31 completed Not Available Not Available Not Available clobetaso l 0.05 % scalp solution 05/25 completed Not Available Not Available Not Available ondansetr on 4 mg disintegr ating tablet 09/02 completed Not Available Not Available Not Available sertralin e 50 mg tablet 09/27 completed Not Available Not Available Not Available dicyclomi ne 10 mg capsule active Not Available Not Available Not Available lamotrigi ne 100 mg tablet active Not Available Not Available Not Available loratadin e 10 mg tablet Take 1 tablet every day by oral route for 90 days. 01/18 completed Not Available Not Available Not Available ipratropi um bromide 0.02 % solution for inhalatio n Inhale 2.5 mL twice a day by inhalati on route as needed for 30 days. 01/18 completed Not Available Not Available Not Available naproxen 500 mg tablet active Not Available Not Available Not Available mometason e 0.1 % topical cream active Not Available Not Available Not Available diazepam 5 mg tablet active Not Available Not Available Not Available amoxicill in 875 mg-potass ium clavulana te 125 mg tablet Take 1 tablet every 12 hours by oral route for 10 days. 11/02 completed Not Available Not Available Not Available amoxicill in 500 mg-potass ium clavulana te 125 mg tablet active Not Available Not Available Not Available hydroxyzi ne pamoate 25 mg capsule active Not Available Not Available Not Available aripipraz ole 10 mg tablet active Not Available Not Available Not Available aripipraz ole 5 mg tablet 05/25 completed Not Available Not Available Not Available Zoloft 120 mg. 03/02 completed Not Available Not Available Not Available Tylenol 500MG active Not Available Not Avail able Not Available Xanax 09/27 completed Not Available Not Available Not Available active Not Available Not Avai lable Not Available multivita min active Not Available Not Available Not Available Abilify 09/27 completed Not Available Not Available Not Available ProAir HFA 90 mcg/actua tion aerosol inhaler Inhale 2 puffs every 4 hours by inhalati on route as needed. 05/25 completed Not Available Not Available Not Available aripipraz ole 2 mg tablet active Not Available Not Available Not Available quetiapin e 50 mg tablet active these need to come from her psychiat rist Not Available Not Available Not Available Voltaren 1 % topical gel active Not Available Not Available Not Available Select-OB + DHA 29 mg iron-1 mg-250 mg oral pack active Not Available Not Available No t Available Suboxone 8 mg-2 mg sublingua l film 03/22 completed Not Available Not Available Not Available Chantix Continuin g Month Box 1 mg tablet active Not Available Not Available Not Available Chantix Starting Month Box 0.5 mg (11)-1 mg (42) tablets in dose pack Take per package insert. active Not Available Not Available No t Available Iron 100 Plus active Not Available Not Available Not Available PrePlus 27 mg iron-1 mg tablet 02/13 completed Not Available Not Available Not Available CitraNata l 90 DHA (algal oil) 90 mg iron-1 mg-50 mg-300 mg oral pack 05/10 completed Not Available Not Available Not Available Vitals Date Recorded Body height Body mass index (BMI) Body weight Heart rate Respiratory rate Oxygen saturation Oxygen saturation in Arterial blood by Pulse oximetry Body temperature Systolic blood pressure Diastolic blood pressure Provider Name and Address Organization Details Last Updated DateTime 8 152.4 cm 33.8 kg/m2 51060.1 8 g 94 /min 16 /min 98 % 98 % 97.6 [degF] 98 mm[Hg] 68 mm[Hg] Roopa Martin [place] - [facility] 8 15:04:12 Date Recorded Body height Provider Name an d Address Organization Details Last Updated DateTime 05/10/[address] [place] [facility] 05/10/2018 12:56:16 Date Recorded Body mass index (BMI) Body weight Body temperature Respiratory rate Heart rate Systolic blood pressure Diastolic blood pressure Provider Name and Address Organization Details Last Updated DateTime 8 33.8 kg/m2 01356.4 8 g 98.3 [degF] 16 /min 72 /min 139 mm[Hg] 92 mm[Hg] Juan Miguel Gardiner [place] - [facility] 8 13:02:00 Date Recorded Pain severity - 0-10 verbal numeric rating [Score] - Reported Provider Name and Address Organization Details Last Updated DateTime 05/10/2018 10 Not Available [facility] 8 12:20:05 Date Recorded Body height Respiratory rate Body mass index (BMI) Body weight Heart rate Oxygen saturation Oxygen saturation in Arterial blood by Pulse oximetry Body temperature Systolic blood pressure Diastolic blood pressure Provider Name and Address Organization Details Last Updated DateTime 8 152.4 cm 18 /min 34.8 kg/m2 96153.1 4 g 82 /min 99 % 99 % 98.3 [degF] 142 mm[Hg] 90 mm[Hg] Soraya Pelayo [facility] 8 09:53:15 Date Recorded Pain severity - 0-10 verbal numeric rating [Score] - Reported Provider Name and Address Organization Details Last Updated DateTime 05/31/2018 8 Not Available [facility] 8 12:25:58 Date Recorded Body height Body mass index (BMI) Body weight Systolic blood pressure Diastolic blood pressure Provider Name and Address Organization Details Last Updated DateTime 07/06/2018 152.4 cm 34.4 kg/m2 09116.26 g 144 mm[Hg] 98 mm[Hg] Joann Huffmanronni [facility] 8 10:22:40 Date Recorded Body height Provider Name an d Address Organization Details Last Updated DateTime 04/23/2019 152.4 cm Tashi camejo, RNC [facility] 04/23/2019 08:39:42 Date Recorded Body mass index (BMI) Body weight Heart rate Body temperature Respiratory rate Systolic blood pressure Diastolic blood pressure Provider Name and Address Organization Details Last Updated DateTime 9 33.6 kg/m2 71997 g 60 /min 98.2 [degF] 14 /min 102 mm[Hg] 66 mm[Hg] Diamond Son CMA [facility] 9 08:50:10 Social History Question Answer Notes LastModified by Organizat ion Details LastModified Time Tobacco Smoking Status [facility] 11:12:45 Do You Have An Advance Directive? No [email or web address] Information not available 11/23/2016 What Is Your Level Of Alcohol Consumption? Occasional Information not available 01/06/2018 Are You Blind Or Do You Have Difficulty Seeing? No [email or web address] Information not available 11/23/2016 What Is Your Level Of Caffeine Consumption? Moderate Information not available 03/02/2017 How Much Tobacco Do You Chew? None Information not available 03/02/2017 Are You Deaf Or Do You Have Serious Difficulty Hearing? No [email or web address] Information not available 11/23/2016 Which Illicit Or Recreational Drugs Have You Used? Marijuana Quit 4 Months Ago Information not available 03/06/2018 Possible Abuse, Neglect Or Concern?* No Information not available 01/06/2018 Marital Status Single Engaged To Jey Information not available 01/06/2018 What Was The Date Of Your Most Recent Tobacco Screening? 04/23/2019 [email or web address] Information not available 04/23/2019 How Much Tobacco Do You Smoke? 1 PPD Information not available 03/02/2017 How Many Years Have You Smoked Tobacco? 15 On/off Information not available 03/02/2017 Sex: Unknown Functional Status Question Answer Note LastModified by Organizat ion Details LastModified Time Do you have difficulty walking or climbing stairs? No Information not available 11/23/2016 Do you have difficulty doing errands alone? No [email or web address] Information not available 11/23/2016 Do you have difficulty dressing or bathing? No [email or web address] Information not available 11/23/2016 What is your exercise level? Occasional [email or web address] Information not available 11/23/2016 Mental Status Question Answer Note LastModified by Organization D etails LastModified Time Do you have difficulty concentrating, remembering or making decisions? No [email or web address] Information no t available 11/23/2016 Family History Relationship Description Onset Age of this Age Resolved Age Notes LastModified by Organization Details LastModified Time Mother Well female adult Not available 10/31 16:47:44 Mother Depressive disorder [email or web address] Not available 10/31 16:47:44 Mother Hypercholest erolemia [email or web address] Not available 10/31 16:47:44 Father Well male adult [email or web address] Not available 10/31 16:47:44 Father Depressive disorder [email or web address] Not available 10/31 16:47:44 Sister Thyroiditis [email or web address] Not lorena ilable 11/23/2016 16:47:44 Maternal Grandmother Depressive disorder [email or web address] Not available 10/31 16:47:44 Maternal Grandmother Hypertensive disorder [email or web address] Not available 2017 11:19:35 Maternal Grandmother Myocardial infarction [email or web address] Not available 01/06 11:19:55 Maternal Grandmother Cerebrovascu lar accident [email or web address] Not available 03/2018 11:20:12 Paternal Aunt Malignant tumor of colon [email or web address] Not available 2017 11:19:07 Paternal Uncle Malignant tumor of colon [email or web address] Not available 2017 11:19:07 Maternal Aunt Hypertensive disorder [email or web address] Not available 2017 11:19:35 Maternal Aunt Myocardial infarction [email or web address] Not available 01/06 11:19:55 Maternal Aunt Diabetes mellitus [email or web address] Not available 2017 11:20:27 Medical History Condition Response HIV or AIDS N cancer N lupus N other genitourinary issue N asthma N ulcers N ADD or ADHD N chronic pain Y depression Y high blood pressure N emphysema N acid reflux/GERD N blood clots N bleeding disorder N diabetes mellitus N psychiatric illness Y thyroid disease N positive PPD N heart disease N seizures N hay fever N sleep apnea N migraines N kidney stones N developmental or behavioral disorder N breast problems N endometriosis Y hiatal hernia N other psychiatric issue Y hepatitis N anxiety disorder Y stroke N high cholesterol N Gynecological History Statement/Question Response Abnormal Pap N Date and Result of Last Colonoscopy neve r Date and Result of Last Mammogram Never Flow Moderate Date and Result of Last Pap 2017 Date of LMP 04/04/2019 HPV Vaccine N Duration of Flow (days) 3 Age at Menarche 11 Current Control Method Seeking Pre gnancy Frequency of Cycle (Q days) 30 Date and Result of Last Bone Density nev er Sexually Active? Y Menses Monthly Y LMP Definite Hormone Replacement Therapy N Obstetrics History GPAL:G 10 P 1 0 9 1 Type Value Full Term 1 Induced 4 Spontaneous 5 Living 1 Total 10 Immunizations Vaccine Type Date Status Note Provider Nam e and Address Organization Details Recorded Time Influenza, split virus, trivalent, PF 05/25/2017 completed Not Available [facility] 2019 02:35:14 Influenza, MDCK, quadrivalent, PF 05/31/2018 completed Not Available [facility] 0 02:37:43 Past Encounters Encounter ID Performer Location Encounter Start Date Encounter Closed Date Diagnosis/Indication Diagnosis SNOMED-CT Code Diagnosis ICD10 Code Diagnosis Note [id number] RAHUL FRANCO MD [facility] _[address], [address] [place] [id number] 05/22/2015 09:23:24 05/22/2015 10:33:47 Body mass index 30+ - obesity 104816316 Z68.34 Adult heal th examination 155298410 Z00.00 Posttrauma tic stress disorder 52187329 F43.10 Chronic post-traumatic stress disorder 891497190 F43.12 Chronic anxiety 75244609 9 F41.9 Chronic sinusitis 985565 00 J32.9 Abnormal weight gain 161 690395 R63.5 Chronic neck pain 186333 7573 107 M54.2 [id number] Yolande Rashid MD [facility] _[facility]_ J[place] [address] [place] [address] SU[address] [facility] [place] [address] 06/17/2015 09:36:08 06/17/2015 10:38:26 Chronic neck pain 7319136033 107 M54.2 Solumedrol given IM in office. Trial of flexeril 10 mg. Pt warned not to combine with hydrocodon e. Pt to go to PCP's office now for refill of hydrocodon e as she is due. F/U w/ PCP 06/19 as scheduled. [id number] Gay Truong [address] [address] 06/19/2015 09:44:41 06/19/2015 12:24:30 Body mass index 30+ - obesity 608058292 Z68.32 Chronic neck pain 912102 9512 107 M54.2 --Stretchi pito discussed . Toridal 30 mg injection 06/19/2015 which did give some almost immediat help . Chronic post-traumatic stress disorder 914334226 F43.12 Chronic sinusitis 430812 00 J32.9 --Seeing her ENT Doctor . [id number] [facility] [address], [address] [place] [id number] 07/07/2015 09:20:46 07/07/2015 10:36:50 Chronic neck pain 5327731017 107 M54.2 --Pantera sheldon discussed . Toridal 30 mg injection 06/19/2015 which did give some almost immediat help . --Seeing her neurologis t 07/07/2015 12:30 . Body mass index 30+ - obesity 248506999 Z68.32 Z68.34 Chronic post-traumatic stress disorder 557699230 F43.12 ---Seeing her Psychiatri st . Chronic anemia 609227527 D64.9 ---The patient states stable . Discussed . Chronic sinusitis 414531 00 J32.9 --Seeing her ENT Doctor . Gastroesop hageal reflux disease 773147238 K21.9 --Recomend ed OTC Opiprazol and Benifiber for Constipati on . [id number] Kelli Tejeda [facility]_ [facility] [address] [facility], [address] [place] [address] 07/23/2015 08:06:47 07/23/2015 09:26:27 Chronic neck pain 3493303542 107 M54.2 --Pantera sheldon discussed . Toridal 30 mg injection 06/19/2015 which did give some almost immediat help . --Seeing her neurologis t August 2015 . --Consider ing Pain managment . Discussed . Chronic anemia 659016945 D64.9 Review old notes and labs discussed .--- ---The patient states stable . Discussed . Gastroesop hageal reflux disease 891026633 K21.9 --Recomend ed OTC Opiprazol and Benifiber for Constipati on . Sleep apnea 05524556 G47 .33 Possible Sleep apnea . Mrs San states her ENT Doctor is refering her for sleep studies . Body mass index 30+ - obesity 293221188 Z68.32 Z68.34 ---Diet and exercise discussed . PLAN : discussed each visit . [id number] [place], [facility] [address] [facility],[address] [place] [address] 08/26/2015 10:36:01 08/26/2015 12:12:50 Chronic neck pain 5706975119 107 M54.2 Chronic neck/right shoulder pain, uncertain etiology, under investigat ion. Symptomati c and uncontroll ed. Abnormal neuromuscu lar examinatio n as above. The initial step involves upper extremity nerve conduction study and EMG to investigat e for possible right C5-6 radiculopa thy, nerve conduction studies may assess for brachial plexopathy . MRI of the neck will investigat e for degenerati ve spinal disease and nerve root impingemen t. MRI will investigat e for cervical pain generator. The patient's medication regimen includes muscle relaxant Flexeril and Lortab opioid analgesic (not personally prescribed ), anti-infla mmatories are deferred because of gastritis. Shoulder pain 90902201 M 25.511 Disorder o f rotator cuff 460629377 M75.81 If the primary pain generator emanates from the shoulder, like a partial right rotator cuff disorder, pending orthopedic referral will be facilitate d. Cervical radiculopathy 04787224 M54.12 Chronic pain syndrome 37 6989927 G89.4 Pain management referral was requested for coordinati on of the patient's opioid analgesics , and percutaneo us treatments if indicated. [id number] MD Yossi [address] [address] 08/29/2015 14:40:49 08/29/2015 15:49:54 Body mass index 30+ - obesity 103723873 Z68.34 ---Diet and exercise discussed . PLAN : discussed each visit . Cough 10268073 R05 ---Rest and fluids discussed . ---Reviewe d old notes etc .Discussed . Gastroesop hageal reflux disease 051592767 K21.9 --Recomend ed OTC Omeprazole and Benifiber for Constipati on . Chronic neck pain 005528 9680 107 M54.2 --Stretchi ng discussed . Toridal 30 mg injection 06/19/2015 which did give some almost immediat help . --Saw her neurologis t August 2015 . --Neurolog ist refering to Pain managment . Discussed . [id number] RAHUL FRANCO MD [facility] _[address], [address] [place] [address] 09/24/2015 08:22:57 09/24/2015 09:58:11 Cervical radiculopathy 17825857 M54.12 Chronic pain syndrome 37 5105437 G89.4 ---neck and right shoulder sever pain with radicular pain into the right arm and had . See NCT . Body mass index 30+ - obesity 206353129 Z68.34 ---Diet and exercise discussed . PLAN : discussed each visit . [id number] RAHUL FRANCO MD [facility] [address] [address] 12/09/2015 09:41:57 12/09/2015 11:24:12 Body mass index 30+ - obesity 283986488 Z68.34 ---Diet and exercise discussed . PLAN : discussed each visit . Loss of hair 769498197 L 65.9 ---Discuss ed thyroid and stress etc . Folliculitis 39845194 L7 3.9 ---Discuss ed . Chronic anemia 522344793 D64.9 Review old notes and labs discussed .--- ---The patient states stable . Discussed . Gastroesop hageal reflux disease 686644823 K21.9 --Recomend ed OTC Omeprazole and Benifiber for Constipati on . Hyperlipidemia 94984708 E78.5 Vitamin D deficiency 347 37414 E55.9 [id number] MD MIRANDA CARTER_PRIM ARY_JAB [address] [address] 01/06/2016 11:23:55 01/06/2016 12:59:27 Body mass index 30+ - obesity 693110032 Z68.33 ---Diet and exercise discussed . PLAN : discussed each visit . Chronic neck pain 750821 1107 107 M54.2 --Pantera sheldon discussed . Toridal 30 mg injection 06/19/2015 which did give some almost immediat help . --Saw her neurologis t August 2015 . --The patient requests referral to a different Pain Management Doctor .( 01/06/2016 ) Gastroesop hageal reflux disease 086503345 K21.9 --Recomend ed OTC Omeprazole and Benifiber for Constipati on . Chronic anxiety 82022432 9 F41.9 Chronic post-traumatic stress disorder 392011964 F43.12 ---Seeing her Psychiatri st . [id number] RAHUL FRANCO MD SVPE_PRIM ARY_JAB FP [address] [place] [address] 1 01/30/2016 10:53:41 01/30/2016 13:12:50 Body mass index 30+ - obesity 163691305 Z68.33 ---Diet and exercise discussed . PLAN : discussed each visit . Chronic neck pain 015194 0003 107 M54.2 --Olii pito discussed . Toridal 30 mg injection 06/19/2015 which did give some almost immediat help . --Saw her neurologis t August 2015 . --The patient requests referral to a different Pain Management Doctor .( 01/06/2016 ) Gastroesop hageal reflux disease 091853176 K21.9 --Recomend ed OTC Omeprazole and Benifiber for Constipati on . Cervical radiculopathy 49674279 M54.12 ---Followe d by his Neurologis t . Chronic anemia 883888160 D64.9 Review old notes and labs discussed .--- ---The patient states stable . Discussed . Insomnia 403297475 G47.0 0 Diet and exercise and sleep environmen t discussed . [id number] BRYANT ANN MD SVPE_PRIM ARY_JAB FP [address] [place] [address] 1 02/23/2016 14:45:54 02/23/2016 15:24:37 Chronic neck pain 2753161000 107 M54.2 on hydrocodon e 7.5 mg tid prn. to see pain clinic at [facility] 05/07. advised to f/u with pcp for refill when due. [id number] ALLEN Garrison SVPE_PRIM ARY_JAB FP [address] [place] [address] 1 03/26/2016 11:07:31 03/26/2016 12:05:12 Finding of body mass index 251431572 Z68.33 Upper resp iratory infection 18171372 J06.9 will complete zpack, will use inhaler to help with chest tightness, rec: expectoran t, tylenol/mo lissa Chronic post-traumatic stress disorder 423419981 F43.12 advised to f/u psych if med SE persist Nasal deviation 16022464 4 J34.2 refer for second opinion with new insurance [id number] MD MIRANDA CARTER_PRIM ARY_JAB FP [address] [place] [address]319 1 04/22/2016 11:20:19 04/22/2016 13:19:35 Cervical radiculopathy 88050971 M54.12 See HPI . Gastroesop hageal reflux disease 838107689 K21.9 --Recomend ed OTC Omeprazole and Benifiber for Constipati on . Hyperlipidemia 76665211 E78.5 Insomnia 755562239 G47.0 0 Diet and exercise and sleep environmen t discussed . [id number] MD JEANIE DELA CRUZPRIM MARIELENA_JAB FP [address] [place] [address] 1 06/02/2016 11:08:42 06/02/2016 12:51:40 Body mass index 30+ - obesity 235644998 Z68.33 Acute bronchitis 8941726 2 J20.9 productive cough with yellow phlegm, malaise and fatigue. x 2 days. sx getting worse. will rx with amoxicilli n. advised to wait 1-2 days. [id number] MD MIRANDA DELA CRUZ_PRIM ARY_JAB FP [address] [place] [address]293 1 06/10/2016 16:00:31 06/10/2016 17:09:10 Acute bronchitis 00506014 J20.9 productive cough with green phlegm, malaise and fatigue. x 10 days. sx getting worse. no improvemen t with amoxicilli n. will check cxr. start levaquin. add albuterol nebs. [id number] MD MIRANDA CARTER_PRIM ARY_JAB FP [address] [place] [address] 1 06/23/2016 11:19:44 06/23/2016 13:13:36 Body mass index 30+ - obesity 378465899 Z68.33 ---Diet and exercise discussed . PLAN : discussed each visit . Cervical radiculopathy 07424410 M54.12 Chronic neck pain 416207 3971 107 M54.2 Chronic back pain 449851 002 M54.12 Chronic post-traumatic stress disorder 275568339 F43.12 ---Seeing her Psychiatri st . Gastroesop hageal reflux disease 516186958 K21.9 --Recomend ed OTC Omeprazole and Benifiber for Constipati on . Hyperlipidemia 11712437 E78.5 Acute bronchitis 2546870 2 J20.9 [id number] RAHUL FRANCO MD SVPE_PRIM ARY_JAB FP [address] [place] [address]614 1 07/01/2016 12:51:33 07/01/2016 14:54:24 Cervical radiculopathy 69708607 M54.12 ROM stretching discussed . Reviewed old notes ect . Chronic back pain 656984 002 M54.12 ROM stretching discussed . Chronic neck pain 608308 4072 107 M54.2 stretching discussed . Gastroesop hageal reflux disease 181198513 K21.9 --Recomend ed OTC Omeprazole and Benifiber for Constipati on . Hyperlipidemia 32557462 E78.5 Diet and regular exercise discussed . Shoulder pain 18909165 M 25.511 Non weight bearing ROM stretches discussed . [id number] RAHUL FRANCO MD SVPE_PRIM ARY_JAB FP [address] [place] [address]-320 1 09/27/2016 12:19:06 09/27/2016 14:53:39 Cough 08372789 R05 ---Mild cough x 5 days . Was getting worse and Mrs San went to an Urgent care 09/24/2016 and was started on a z-bossman . staying the same to a little worse . Still nasal congestion and cough and not feeling well .She states that both her son and her fiance have been sick similar to her and they are recovering .--- ---Rest and fluids discussed . ---Reviewe d old notes etc . Discussed in detail . Chronic anxiety 41426757 9 F41.9 Anxiety PTSD---see s consular and psychiatri st . Gastroesop hageal reflux disease 200230611 K21.9 --Recommen ded OTC Omeprazole and benefiber for Constipati on . [id number] Annalisa Ramos zCLSD_SVP E_NEURO_S S_B [address] [facility],[address] [place] [address] 11/24/2016 10:33:54 11/24/2016 11:02:50 Chronic neck pain 5571534568 107 M54.2 Chronic neck/right shoulder pain, Due to right C5-6 and C6-7 cervical radiculiti s from cervical spondylosi s and degenerati ve disc disease. Symptomati c and uncontroll ed. Abnormal neuromuscu lar examinatio n as above. MRI cervical spine 10/09/15 shows multilevel mild to moderate degenerati ve changes as detailed below. Upper extremity NCS/EMG 06/29/16 () described as normal. The patient's medication regimen includes muscle relaxant Flexeril and Lortab opioid analgesic (not personally prescribed ), anti-infla mmatories are deferred because of gastritis. Cervical radiculopathy 35671428 M54.12 Probable symptomati c generator right C5-6 and C6-7 radiculiti s. Not a candidate for steroid/NS AIDs. Gabapentin 100 mg TID. Continue cervical PT regimen. Patient may investigat e acupunctur e (her request). Continued pain management collaborat ion for percutaneo us treatments . Neurosurgi fadia referral at patient request. Chronic pain syndrome 37 6055414 G89.4 Pain management referral was requested for coordinati on of the patient's opioid analgesics , and percutaneo us treatments if indicated. Follows at [facility] Cervical spondylosis 387 234783 M47.812 MRI cervical spine without contrast 10/09/15 shows multilevel degenerati ve changes. C3-4 disc protrusion , uncoverteb ral hypertroph y, facet arthropath y with minimal NFS. C4-5 DOC, mild CSS, uncoverteb ral hypertroph y, facet arthropath y, mild bilateral NFS. C5-6, DOC, mild CSS, facet arthropath y and uncoverteb ral hypertroph y, minimal NFS. C6-7, DOC, mild CSS, uncoverteb ral hypertroph y, mild left, moderate right NFS. No myelomalac ia [id number] ISAEL HENRY MD SVPE_PRIM ARY_JAB [address] [address] 03/02/2017 10:56:58 03/02/2017 11:44:18 Body mass index 30+ - obesity 136835484 Z68.35 healthy tlcs advised. Deviated nasal septum 12 6637450 J34.2 advised pt to obtain ENT input. avoidance of any intranasal substances including drugs, reports she is sober. Pain in both feet 389212 4562 1166202 M79.671 M79.672 comfortabl e shoes and podiaty input advised, seek conservati ve measures prior to any surgical input. [id number] ISAEL HENRY MD SVPE_PRIM ARY_JAB [address] [address] 05/25/2017 11:40:46 05/25/2017 12:50:09 Body mass index 30+ - obesity 879921834 Z68.34 Advised importance of healthy lifestyle modificati ons, including eating more fruits/veg atables and increase activity as tolerated. Advised to drink more water upto 2L/day (unless restricted ), reduce sodium intake.Wor k towards goal of becoming 'healthier ' and not just 'weight loss'Avoid diets, and make healthier food choices.Mo re Mindful eating. Gastroesop hageal reflux disease 970296038 K21.9 avoid triggers, has seen Dr. Ocasio here in [place].advise d pt to contine omeprazole .ck renal function. Cervical radiculitis 110 33455 M54.12 per neurology and Pain mgt referral requested to be closer to home.trans portation and limited income make it difficult. pain meds per pain mgt.consti pation - colace increase fiber/wate r/fruits/v eggies. Long-term drug therapy 189116167 Z79.899 ck labs. Constipation 35341129 K5 9.00 constipati on - colace increase fiber/wate r/fruits/v eggies. Administra tion of influenza vaccine 10797272 Z23 [id number] ISAEL HENRY MD SVPE_PRIM ARY_JAB FP [address] [place] [address] 1 06/15/2017 08:55:22 06/15/2017 09:35:24 Cervical radiculitis 89221857 M54.12 per neurology and Pain mgt referral requested to be closer to home.trans portation and limited income make it difficult. pain meds per pain mgt.consti pation - colace increase fiber/wate r/fruits/v eggies. Cervical s pondylosis with myelopathy 18327504 M47.12 neurosurge ry to further discuss her case.advis ed she consider all conservati ve modalities prior to having surgical input. Gastroesop hageal reflux disease 872033792 K21.9 avoid triggers, has seen Dr. Ocasio here in [place].advise d pt to contine omeprazole .ck renal function. Perforatio n of nasal septum 56741878 J34.89 per ENT Chronic post-traumatic stress disorder 364831477 F43.12 cont working with [employer]. [id number] MD LOBO OCHOAPE_PRIM ARY_JAB FP [address] [place] [address] 1 09/02/2017 07:59:10 09/02/2017 08:34:10 Acute sinusitis 68273008 J01.90 Recent Z-Bossman use, Augmentin provided Diflucan if needed for yeast infection. Supportive care measures advised. Rest fluids takes Tylenol if not improving advised to contact the office. Fatigue 97412521 R53.83 Check labs advised patient to eat healthy consider light exercise as tolerated. Chronic post-traumatic stress disorder 793750675 F43.12 cont working with cousnelor. Suspect this is linked to poor sleep hygiene and undertreat ed PTSD she is seeking a secondary opinion for psychology . Provided counseling informatio n. [id number] ZULEIMA LUZ PA-C SVPE_PRIM ARY_JAB FP [address] [place] [address] 1 11/02/2017 10:33:14 11/02/2017 11:23:44 Body mass index 30+ - obesity 113540429 Z68.34 test negative 018933189 Z32.02 Malaise and fatigue 2717 19897 R53.81 instructed to proceed w/ labs that were ordered in September by Dr. Henry [facility] ion care management 733193555 Z30.[address] Kaur for family planning, endometrio sis, issues w/ conceiving Eustachian tube disorder 44946213 H69.93 DDx for dizziness - see care plan under allergic rhinitis Cough variant asthma 409 937101 J45.991 May use ipratropiu m QHS if still needed for dry bedtime cough after daily antihistam ine therapy Allergic rhinitis 398313 04 J30.9 nasal spray BID w/ daily antihistam ine Endometritis 88867805 N8 5.00 [id number] ISAEL HENRY MD SVPE_PRIM ARY_JAB FP [address] [place] [address] [place] [address] 1 11/11/2017 11:15:14 11/11/2017 12:30:59 Gastroesophageal reflux disease 668363961 K21.9 avoid triggers, has seen Dr. Ocasio here in [place].advise d pt to contine omeprazole .ck renal function. Lightheadedness 88482757 8 R42 Blood pressure readings are 110/70 sitting and lying down position, patient still symptomati c while lying on exam table suspect possible autonomic dysfunctio n, patient is not tachycardi c,consider Cspine xray to evaluate.r ecent labs CBC CMP TSH all within normal limits vitamin D levels are little bit low at 26 I do not suspect they are contributi ng to current issue. I have advised patient to go to the emergency room for further evaluation . avoid driving and avoid injuryes. [id number] Joslyn Diego SVPE_PRIM ARY_JAB FP [address] [place] [address] 1 12/07/2017 10:33:20 12/07/2017 11:27:41 Cervical radiculopathy 78436110 M54.12 3/5 RUE, right hand dominant.W berna noted obtain an updated MRI consult with neurosurge ry advised that she have physical therapy further assist with her pain symptoms referral placed for pain management for ongoing care advised patient to consider nonnarcoti c options.Al so advised patient to consider all conservati ve options prior to any surgical input. Monoparesis - arm 953503 006 G83.21 As above MRI of cervical spine ordered input from physical therapy and neurosurge ry thought after she has obtained MRI ongoing care with pain management . [id number] Maya Lieberman [facility] zFNL_SVPE _OBGYN_SS _[address] [facility] [place] [address] 01/06/2018 09:48:13 01/06/2018 10:56:33 Pain in pelvis 27302944 R10.2 for TV US comfort measures discussed , if severe pain fu ER immediatel y, precaution s given Missed period 13786221 N 92.5 upt + at home x1 repeat negative, upt here negative for US History of 3 miscarriages 594792951 Z87.59 hx SAB x3 desires lab work up lab form for thrombophe princess work up given hand written quest form Candidiasis of vagina 72 364894 B37.3 Adnexal tenderness 31050 3002 R10.2 for TV US , comfort measures reviewed, precaution s given [id number] PIERRE RAMIREZ zCLSD_SVP E_NSURG_S S_JAB [address] [place] [address] [address] [place] [address] 01/18/2018 13:05:18 01/18/2018 14:20:54 Cervical spondylosis with myelopathy 95859453 M47.12 Cervical kyphosis 532772 001 M40.202 Nicotine dependence 5629 4008 F17.800 [id number] Maya Lieberman [facility] zFNL_SVPE _OBGYN_SS _[address] [facility] [place] [address] 02/02/2018 13:46:58 02/02/2018 15:08:16 Recurrent miscarriage 363532659 N96 pt requesting thrombophe princess (hand written lab form given ) work up and female labs Chronic pe lvic pain of female 710879890 R10.2 mdl on 01/06/18 negative all declines today, US negative except free fluid in cul [place] sac hx endometros is declines offer ocp to decrease flow amount and frequency menses declines, desires [id number] Maya Lieberman CNM zFNL_SVPE _OBGYN_SS _[address] [facility] [address] [place] [address] 03/06/2018 14:08:21 03/06/2018 14:53:18 Candidiasis of vagina 50490792 B37.3 vaginitis causes/pre vention/tx discussed History of recurrent miscarriage - not 494728441 N96 37yo hx SAB x3, hx EAB x3, desires fertility, requesting preconcept ion consult with [facility] [id number] ISAEL HENRY MD SVPE_PRIM ARY_JAB [address] [place] [address] [address] [facility],[place] [address] 03/22/2018 14:52:56 03/22/2018 16:02:22 Cervical radiculopathy 96082302 M54.12 3/ RUE, right hand dominant.W berna noted obtain an updated MRI consult with neurosurge ry advised that she have physical therapy further assist with her pain symptoms referral placed for pain management for ongoing care advised patient to consider nonnarcoti c options.Al so advised patient to consider all conservati ve options prior to any surgical input. Body mass index 30+ - obesity 378777169 Z68.34 Advised importance of healthy lifestyle modificati ons, including eating more fruits/veg atables and increase activity as tolerated. Advised to drink more water upto 2L/day (unless restricted ), reduce sodium intake.Wor k towards goal of becoming 'healthier ' and not just 'weight loss'Avoid diets, and make healthier food choices.Mo re Mindful eating. Chronic anxiety 49985584 9 F41.9 Advise she follow-up with her psychiatri st continue current medication s and continue working with her counselor. Focus on limiting positive changes for improvemen t emotional outlook. Chronic post-traumatic stress disorder 530210107 F43.12 cont working with [employer]. Suspect this is linked to poor sleep hygiene and undertreat ed PTSD she is seeking a secondary opinion for psychology . Provided counseling informatio n. [id number] PIERRE RAMIREZ zCLSD_SVP E_NSURG_S S_JAB [address] [facility] [address] [place] [address] 05/10/2018 12:49:40 05/10/2018 13:57:24 Neck pain 12511759 M54.2 Opioid dependence 320583 00 F11.20 Cervical radiculopathy 99809489 M54.12 Cervical s pondylosis with myelopathy 23824356 M47.12 [id number] ISAEL HENRY MD SVPE_PRIM ARY_JAB [address] [place] [address] [address],[place] [address] 05/31/2018 09:15:56 05/31/2018 11:18:58 Body mass index 30+ - obesity 865604676 Z68.34 Advised importance of healthy lifestyle modificati ons, including eating more fruits/veg atables and increase activity as tolerated. Advised to drink more water upto 2L/day (unless restricted ), reduce sodium intake.Wor k towards goal of becoming 'healthier ' and not just 'weight loss'Avoid diets, and make healthier food choices.Mo re Mindful eating. History of endometriosis 2995931652 9235837 Z87.42 Advised patient to have transvagin al ultrasound to further clarify her symptoms advise she contact her [employer] today before leaving our office for an appointmen t to be further evaluated. If any fevers chills night sweats or any worsening of symptoms she needs to report to the emergency room for further evaluation and imagingOne -time prescripti on for tramadol given to patient advised that this is a one-time courtesy advised that she not take this prior to driving do not take this with any other sedatives or sleep aids. May cause drowsiness . Chronic neck pain 514719 4602 107 M54.2 has done Physical therapy, and has Taking Ibuprofen and Tylenol.susana buchanan struggles with Administra tion of influenza vaccine 91691362 Z23 Cervical radiculopathy 39306619 M54.12 3/5 RUE, right hand dominant.W berna noted Neurosurge ry consult note reviewed, she does not have a pain management provider at the current time I placed a referral for pain management per Dr. Ramirez's recommenda tions, advised patient to contact her insurance company see if he is in network.Linden davis is strongly considerin g surgical input given the lack of improvemen t with conservati ve and injection therapy Posttrauma tic stress disorder 67955664 F43.10 Continue working with psychiatri st and counselor [id number] Maya Ashleymichelle Lieberman [facility] zFNL_SVPE _OBGYN_SS _[address] [facility] [place] [address] 07/06/2018 09:47:39 07/06/2018 11:17:31 Blood in urine 21138939 R31.9 pt on menses, urine c&S to lab Chronic pe lvic pain of female 208552686 R10.2 endometros is declines offer ocp to decrease flow amount and frequency menses declines, desires had negative TV US on 06/26/18 , gwen done, per dr goodman no tramadol given today, [id number] Harry Davis MD zFLM_SVBH _BEHAVRL_ [address] [facility] [place] [address] 02/22/2019 09:35:29 02/22/2019 11:45:53 [id number] Kristopher Chatterjee II PAINTER MIRROR zCLSD_SVB H_BEHAVRL _JAB [address] [place] [address] 03/16/2019 09:55:43 03/16/2019 14:13:49 [id number] Harry Davis MD zFNL_SVBH _BEHAVRL_ [address] [facility] [address] [place] [address] 03/26/2019 09:14:05 03/26/2019 10:19:33 [id number] Michael Bloom Jr, MD SVFM_FAMM ED_[facility] JULEE [address] [facility] [address] 04/23/2019 08:18:28 04/23/2019 09:48:00 Body mass index 30+ - obesity 624377940 Z68.33 Healthy Lifestyle educationa l handout provided/d iscussed with patient Recurrent miscarriage 10 6282438 N96 Pt able to get , but with multiple spontaneou s abortions. Will proceed with laboratory workup.Kobi alin follow up in one month. History of endometriosis 0605201287 9539786 Z87.42 Pt desires , so OCP and GnRH agonist not recommende d.Pt advised that if she decides against future she may proceed with more definiteve treatment. Health Concerns Section Related Observation LastModified by Organization Detai ls LastModified Time None Recorded Concern Status LastModified by Organization Details LastModified Time None Recorded Advance Directives Directive N: Payers Encounter Date Sequence Insurance Name Policy Number Policy Neville Covered Member ID Neville Member ID Guarantor Name 03/22/2018 1 [facility] (MEDICAID HMO) Ean San [id number] Ean San 05/10/2018 1 [facility] (MEDICAID HMO) Ean San [id number] Ean San 05/31/2018 1 [facility] (MEDICAID HMO) Ean San [id number] Ean San 07/06/2018 1 [facility] (MEDICAID HMO) Ean San [id number] Ean San 04/23/2019 1 [facility] (MEDICAID REPLACEMENT - HMO) [facility] Ean San [id number] Ean San Notes Date Note Type Note Provider Name and Address Organization Details Recorded Time 8 text/html 37yo F Narcotic medication - reports has been on medication Lortab 7.5mg/325mgx 7 months.Had a reaction from Suboxone had to go to the emergency room, it was 'horrible, I have never felt like that in my life'had facial swelling and chest pain happened on 2nd dose.Pt reports having allergic reaction, reprots was vomiting.reports reaction has subsided in the ED.pt reports seeing Dr. Juan A Power is pain management, Reports his office can provide her with no further refills,, patient reports she is seeking an alternate opinionPt reports she is having significant pain, reports having significant pain reports currently pain 10/10.reports having numbness and tingling Right upper ext. MRI of cspine on chart from December 2017.-Psych - had them increase Sertralilne 100mg qhs.Restoril 15mg qhs.reports given this 'f-ing Curse' (refering to above)Pt Does talk to counselor, denies any current suicidal homicidal ideation denies any drug use. ED visit03/15/18The patient presents with adverse reaction to Suboxone. The substance the patient was exposed to was suboxone. The onset was just prior to arrival. The course/duration of symptoms is constant. The route of exposure was oral. The reason for exposure was prescription. The location where the incident occurred was at home. Associated symptoms: chest pain, shortness of breath, nausea, vomiting, headache and dizziness. The degree of symptoms is moderate. Risk factors consist of none. Prior episodes: none. Therapy today: none. Additional history: none. 37 yo woman with chronic pain 2/2 cervical radiculopathy presents to ED c/o dizziness, chest pain, nausea and vomiting which started after taking her second dose of suboxone. She was previously on norco 7.5/325, ran out 4 days ago and started on suboxone yesterday by pain management. First dose tolerated ok, after taking her second dose she started to feel dizzy/unsteady, nauseated and had some central chest pressure. ISAEL HENRY MD [address] [facility],[address], [place], [address], [facility] [place] 03/27/2018 17:27:15 8 text/html Ms. San is a pleasant 37-year-old female who is referred to our clinic by Dr. Henry for cervical radiculopathy. She shares she has been suffering with neck and arm pain for many years with the most recent flare starting approximately 8 months ago with no inciting event. The pain starts in her neck and radiates into her right shoulder right upper arm forearm and into her hand. She has associated numbness and tingling in the upper aspect of her right arm in her right hand that is quite bothersome for her and has been progressive over the last several weeks. Her pain varies from 8-10 out of 10 and is worsened with just activities of daily living. She is very frustrated by the progression of her pain and her inability to do things that she typically would do and enjoy. She gets some relief with Tylenol, hydrocodone, heat, BenGay, and a TENS unit. She has significantly modified her activity over the last several months and is frustrated not being able to exercise and has gained several pounds. She did undergo 6-7 injections with 1 day of relief to no relief. She participated in physical therapy for several weeks with no change in her symptoms she has recently been referred again and is pending insurance approval. She underwent acupuncture that was helpful. She denies fever, chills, gait instability, bowel or bladder habit changes however she is struggling with constipation due to narcotics.(05-10-18) Since our last encounter, she has continued to have debilitating pain. She had been following with [facility] with escalating narcotic requirements. She was referred to a different pain clinic ([facility]) due to a missed appointment. She was prescribed suboxone but unfortunately she had a bad reaction to it and went to the ED. She was referred to . No recent injections. She states that her weakness and numbness are worse. PIERRE RAMIREZ [address] [place] [address],[address], [place], [address], [facility] [place] 05/10/2018 16:12:53 8 text/html 37yo F Patient is here to follow-up on multiple items:Cervical radiculopathy: Currently is without pain management provider, she does wish to see someone outside of [facility] pain management group, she has not heard any updates from our referral team, has been without pain medication for the past 5 months, reports she is having extreme levels of pain with her upper back and neck, she is contemplating having possible surgery to help alleviate some of her numbness and tingling of right upper extremity, she is dropping things however neurosurgery will not perform surgery until she is under the care of pain management.Patient reports taking Tylenol and ibuprofen [id number], ibuprofen does bother her stomach however given that she is having severe pain she needs something to help alleviate her pain symptoms.-Psych - had them increase Sertralilne 100mg qhs. Restoril 15mg qhs. Pt Does talk to counselor, denies any current suicidal homicidal ideation denies any drug use. Reports her chronic neck and right arm issues are affecting her emotionally- Pelvic pain - known h/o endometriosis, has had surgery in past, reports she is followed by 'Specialist'followed by BRANDAN and Dr. Nj Stanton-Shannan LMP - reports having pain similar to previous Endometriosis.ER visit on 05/27/2018 No imaging was performed given patient has history of endometriosis, she was advised to follow-up with her FISH HOUSEKEEPER. 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 Ruffies any blood in the stool wrap normal vaginal bleeding, denies any fevers, chills, night sweatsPatient was given a prescription for tramadol 50 mg which she has been taking sparingly for pelvic pain by the ER she has 1 remaining tablet. Denies any side effects of this medication requesting a refill on this medication if possible 37yo F ED visit03/15/18The patient presents with adverse reaction to Suboxone. The substance the patient was exposed to was suboxone. The onset was just prior to arrival. The course/duration of symptoms is constant. The route of exposure was oral. The reason for exposure was prescription. The location where the incident occurred was at home. Associated symptoms: chest pain, shortness of breath, nausea, vomiting, headache and dizziness. The degree of symptoms is moderate. Risk factors consist of none. Prior episodes: none. Therapy today: none. Additional history: none. 37 yo woman with chronic pain 2/2 cervical radiculopathy presents to ED c/o dizziness, chest pain, nausea and vomiting which started after taking her second dose of suboxone. She was previously on norco 7.5/325, ran out 4 days ago and started on suboxone yesterday by pain management. First dose tolerated ok, after taking her second dose she started to feel dizzy/unsteady, nauseated and had some central chest pressure. ISAEL HENRY MD [address] [facility] [facility],[address], [place], [address], [facility] 05/31/2018 13:40:59 8 text/html 37 yo female , c/o pelvic pain, sharp pain 05/10 , requesting Tramadol , had a recent rx from DR Henry on 06/16/18 for tramadol 40 tablets but per pt I have used them all, hx chronic neck/back pain and is on Hydrocodone for this , hx endometrosis, pt c/o generalized pelvic pain, denies vaginal discharge, odor, is currently on menses, LNMP 07/02/18 , denies dysuria/cvat/fever, pt declines offer ocp to help with menses/endometriosis , , pt desires , per pt has been trying for years for , sab x5 , had thrombophelia work up all negative, consulted [facility]AN for preconception visit, has been using ovulation kit and time intercourse for years, has 1 child born 1997, with different partner, has no living children with current partner, pt states I get , but I always lose the early Had US 06/26/18 negative except small amount free pelvic fluid Maya Lieberman CN [address] [facility] [facility] [address], [place], [address], [facility] [place] 07/06/2018 13:16:10 9 text/html 38 yo female referred by PCP for endometriosis and infertility. The patient states she was diagnosed with endometriosis several years ago while in [place]. She had diagnostic laparascopies with removal of ectopic endometrial tissue in 2013 and 2015 with improvement in symptoms, but pelvic pain has gradually been worsening again and is worse with menstrual cycles and during sexual intercourse. The patient has also had 5 spontaneous abortions since 2013. She desires to have another successful . She states she has not tried hormonal medications for control of her endometriosis and that she has suffered severe reflux and peptic ulcers while on NSAIDS. 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 Induced abortion2. Term vaginal delivery3. Induced abortion4. Induced abortion5. Induced abortion6. Spontaneous abortion7. Spontaneous abortion8. Spontaneous abortion9. Spontaneous tvwchall21. Spontaneous Medical Problems:Chronic pain due to cervical radiculopathyChronic AnxietyEndometriosis Medications:AripiprazoleH ydrocodone-acetaminophen Social HxSmokes < 1pack per dayNo alcoholNo drugs Allergies: NSAIDS Michael Bloom Jr, MD [address] [place], [address], [facility] [place] 04/24/2019 10:20:17 OBGyn Episode Ob Episode Information Episode Created Date Number of Fetuses Patient Bloodtype Patient rh Status Prepregnancy Weight lbs Domestic Partner Domestic Partner Phone Father Name Doctor Of Audiology Status 01/07/20 18 1 CLOSED Fetus Data First Name Last Name Admitted to NICU Weight (g) Sex Living Outcome Pediatric Complications Fetus ID Race Codes Race Delivery Type , Spontane ous [id number] Keyon Calculation Initial Keyon Date Initial Exam Date Initial Exam Provider Initial Ultrasound Date Last Menstrual Period Date Ultra Sound Weeks Gestation 0 Eighteen To Twenty Week Keyon Update Ultra Sound Date Fundal Height At Umbil Quickening Date Ultra Sound Latest Weeks Gestation Final Keyon Confirmed By Final Keyon Confirmed Date Final Keyon Date Ultra Sound Latest Days Gestation 0 0 Menstrual History Last Menstrual Date Menses Monthly On Bcp Conception Prior Menses Frequency Hcg Plus Date Menarche Onset Age Delivery Information Delivery Date Delivery Type Labor Anesthesia Weeks Gestation Incision Type Labor Labor Length Hrs Delivered By Post Complications Tubal Sterilization Discharge Date Comments 5 4 Discharge Information Feeding Method Contraceptive Method Maternal HG B and HCT Levels Ob Episode Information Episode Created Date Number of Fetuses Patient Bloodtype Patient rh Status Prepregnancy Weight lbs Domestic Partner Domestic Partner Phone Father Name Doctor Of Audiology Status 01/07/20 18 1 CLOSED Fetus Data First Name Last Name Admitted to NICU Weight (g) Sex Living Outcome Pediatric Complications Fetus ID Race Codes Race Delivery Type 2438.05 7 M Full Term [id number] Standard Vaginal Delivery Keyon Calculation Initial Keyon Date Initial Exam Date Initial Exam Provider Initial Ultrasound Date Last Menstrual Period Date Ultra Sound Weeks Gestation 0 Eighteen To Twenty Week Keyon Update Ultra Sound Date Fundal Height At Umbil Quickening Date Ultra Sound Latest Weeks Gestation Final Keyon Confirmed By Final Keyon Confirmed Date Final Keyon Date Ultra Sound Latest Days Gestation 0 0 Menstrual History Last Menstrual Date Menses Monthly On Bcp Conception Prior Menses Frequency Hcg Plus Date Menarche Onset Age Delivery Information Delivery Date Delivery Type Labor Anesthesia Weeks Gestation Incision Type Labor Labor Length Hrs Delivered By Post Complications Tubal Sterilization Discharge Date Comments 8 40 Discharge Information Feeding Method Contraceptive Method Maternal HG B and HCT Levels Ob Episode Information Episode Created Date Number of Fetuses Patient Bloodtype Patient rh Status Prepregnancy Weight lbs Domestic Partner Domestic Partner Phone Father Name Doctor Of Audiology Status 01/07/20 18 1 CLOSED Fetus Data First Name Last Name Admitted to NICU Weight (g) Sex Living Outcome Pediatric Complications Fetus ID Race Codes Race Delivery Type , Induced [id number] Keyon Calculation Initial Keyon Date Initial Exam Date Initial Exam Provider Initial Ultrasound Date Last Menstrual Period Date Ultra Sound Weeks Gestation 0 Eighteen To Twenty Week Keyon Update Ultra Sound Date Fundal Height At Umbil Quickening Date Ultra Sound Latest Weeks Gestation Final Keyon Confirmed By Final Keyon Confirmed Date Final Keyon Date Ultra Sound Latest Days Gestation 0 0 Menstrual History Last Menstrual Date Menses Monthly On Bcp Conception Prior Menses Frequency Hcg Plus Date Menarche Onset Age Delivery Information Delivery Date Delivery Type Labor Anesthesia Weeks Gestation Incision Type Labor Labor Length Hrs Delivered By Post Complications Tubal Sterilization Discharge Date Comments 2 8 Discharge Information Feeding Method Contraceptive Method Maternal HG B and HCT Levels Ob Episode Information Episode Created Date Number of Fetuses Patient Bloodtype Patient rh Status Prepregnancy Weight lbs Domestic Partner Domestic Partner Phone Father Name Doctor Of Audiology Status 01/07/20 18 1 CLOSED Fetus Data First Name Last Name Admitted to NICU Weight (g) Sex Living Outcome Pediatric Complications Fetus ID Race Codes Race Delivery Type , Induced [id number] Keyon Calculation Initial Keyon Date Initial Exam Date Initial Exam Provider Initial Ultrasound Date Last Menstrual Period Date Ultra Sound Weeks Gestation 0 Eighteen To Twenty Week Keyon Update Ultra Sound Date Fundal Height At Umbil Quickening Date Ultra Sound Latest Weeks Gestation Final Keyon Confirmed By Final Keyon Confirmed Date Final Keyon Date Ultra Sound Latest Days Gestation 0 0 Menstrual History Last Menstrual Date Menses Monthly On Bcp Conception Prior Menses Frequency Hcg Plus Date Menarche Onset Age Delivery Information Delivery Date Delivery Type Labor Anesthesia Weeks Gestation Incision Type Labor Labor Length Hrs Delivered By Post Complications Tubal Sterilization Discharge Date Comments 199 7 5 Discharge Information Feeding Method Contraceptive Method Maternal HG B and HCT Levels Ob Episode Information Episode Created Date Number of Fetuses Patient Bloodtype Patient rh Status Prepregnancy Weight lbs Domestic Partner Domestic Partner Phone Father Name Doctor Of Audiology Status 01/07/20 18 1 CLOSED Fetus Data First Name Last Name Admitted to NICU Weight (g) Sex Living Outcome Pediatric Complications Fetus ID Race Codes Race Delivery Type , Spontane ous [id number] Keyon Calculation Initial Keyon Date Initial Exam Date Initial Exam Provider Initial Ultrasound Date Last Menstrual Period Date Ultra Sound Weeks Gestation 0 Eighteen To Twenty Week Keyon Update Ultra Sound Date Fundal Height At Umbil Quickening Date Ultra Sound Latest Weeks Gestation Final Keyon Confirmed By Final Keyon Confirmed Date Final Keyon Date Ultra Sound Latest Days Gestation 0 0 Menstrual History Last Menstrual Date Menses Monthly On Bcp Conception Prior Menses Frequency Hcg Plus Date Menarche Onset Age Delivery Information Delivery Date Delivery Type Labor Anesthesia Weeks Gestation Incision Type Labor Labor Length Hrs Delivered By Post Complications Tubal Sterilization Discharge Date Comments 4 4 Discharge Information Feeding Method Contraceptive Method Maternal HG B and HCT Levels Ob Episode Information Episode Created Date Number of Fetuses Patient Bloodtype Patient rh Status Prepregnancy Weight lbs Domestic Partner Domestic Partner Phone Father Name Doctor Of Audiology Status 01/07/20 18 1 CLOSED Fetus Data First Name Last Name Admitted to NICU Weight (g) Sex Living Outcome Pediatric Complications Fetus ID Race Codes Race Delivery Type , Spontane ous [id number] Keyon Calculation Initial Keyon Date Initial Exam Date Initial Exam Provider Initial Ultrasound Date Last Menstrual Period Date Ultra Sound Weeks Gestation 0 Eighteen To Twenty Week Keyon Update Ultra Sound Date Fundal Height At Umbil Quickening Date Ultra Sound Latest Weeks Gestation Final Keyon Confirmed By Final Keyon Confirmed Date Final Keyon Date Ultra Sound Latest Days Gestation 0 0 Menstrual History Last Menstrual Date Menses Monthly On Bcp Conception Prior Menses Frequency Hcg Plus Date Menarche Onset Age Delivery Information Delivery Date Delivery Type Labor Anesthesia Weeks Gestation Incision Type Labor Labor Length Hrs Delivered By Post Complications Tubal Sterilization Discharge Date Comments 5 4 Discharge Information Feeding Method Contraceptive Method Maternal HG B and HCT Levels Ob Episode Information Episode Created Date Number of Fetuses Patient Bloodtype Patient rh Status Prepregnancy Weight lbs Domestic Partner Domestic Partner Phone Father Name Doctor Of Audiology Status 01/07/20 18 1 CLOSED Fetus Data First Name Last Name Admitted to NICU Weight (g) Sex Living Outcome Pediatric Complications Fetus ID Race Codes Race Delivery Type , Induced [id number] Keyon Calculation Initial Keyon Date Initial Exam Date Initial Exam Provider Initial Ultrasound Date Last Menstrual Period Date Ultra Sound Weeks Gestation 0 Eighteen To Twenty Week Keyon Update Ultra Sound Date Fundal Height At Umbil Quickening Date Ultra Sound Latest Weeks Gestation Final Keyon Confirmed By Final Keyon Confirmed Date Final Keyon Date Ultra Sound Latest Days Gestation 0 0 Menstrual History Last Menstrual Date Menses Monthly On Bcp Conception Prior Menses Frequency Hcg Plus Date Menarche Onset Age Delivery Information Delivery Date Delivery Type Labor Anesthesia Weeks Gestation Incision Type Labor Labor Length Hrs Delivered By Post Complications Tubal Sterilization Discharge Date Comments 1 8 Discharge Information Feeding Method Contraceptive Method Maternal HG B and HCT Levels Ob Episode Information Episode Created Date Number of Fetuses Patient Bloodtype Patient rh Status Prepregnancy Weight lbs Domestic Partner Domestic Partner Phone Father Name Doctor Of Audiology Status 07/06/20 18 1 CLOSED Fetus Data First Name Last Name Admitted to NICU Weight (g) Sex Living Outcome Pediatric Complications Fetus ID Race Codes Race Delivery Type , Induced [id number] Keyon Calculation Initial Keyon Date Initial Exam Date Initial Exam Provider Initial Ultrasound Date Last Menstrual Period Date Ultra Sound Weeks Gestation 0 Eighteen To Twenty Week Keyon Update Ultra Sound Date Fundal Height At Umbil Quickening Date Ultra Sound Latest Weeks Gestation Final Keyon Confirmed By Final Keyon Confirmed Date Final Keyon Date Ultra Sound Latest Days Gestation 0 0 Menstrual History Last Menstrual Date Menses Monthly On Bcp Conception Prior Menses Frequency Hcg Plus Date Menarche Onset Age Delivery Information Delivery Date Delivery Type Labor Anesthesia Weeks Gestation Incision Type Labor Labor Length Hrs Delivered By Post Complications Tubal Sterilization Discharge Date Comments 4 5 Discharge Information Feeding Method Contraceptive Method Maternal HG B and HCT Levels Ob Episode Information Episode Created Date Number of Fetuses Patient Bloodtype Patient rh Status Prepregnancy Weight lbs Domestic Partner Domestic Partner Phone Father Name Doctor Of Audiology Status 07/06/20 18 1 CLOSED Fetus Data First Name Last Name Admitted to NICU Weight (g) Sex Living Outcome Pediatric Complications Fetus ID Race Codes Race Delivery Type , Spontane ous [id number] Keyon Calculation Initial Keyon Date Initial Exam Date Initial Exam Provider Initial Ultrasound Date Last Menstrual Period Date Ultra Sound Weeks Gestation 0 Eighteen To Twenty Week Keyon Update Ultra Sound Date Fundal Height At Umbil Quickening Date Ultra Sound Latest Weeks Gestation Final Keyon Confirmed By Final Keyon Confirmed Date Final Keyon Date Ultra Sound Latest Days Gestation 0 0 Menstrual History Last Menstrual Date Menses Monthly On Bcp Conception Prior Menses Frequency Hcg Plus Date Menarche Onset Age Delivery Information Delivery Date Delivery Type Labor Anesthesia Weeks Gestation Incision Type Labor Labor Length Hrs Delivered By Post Complications Tubal Sterilization Discharge Date Comments 6 5 Discharge Information Feeding Method Contraceptive Method Maternal HG B and HCT Levels Ob Episode Information Episode Created Date Number of Fetuses Patient Bloodtype Patient rh Status Prepregnancy Weight lbs Domestic Partner Domestic Partner Phone Father Name Doctor Of Audiology Status 07/06/20 18 1 CLOSED Fetus Data First Name Last Name Admitted to NICU Weight (g) Sex Living Outcome Pediatric Complications Fetus ID Race Codes Race Delivery Type [id number] Keyon Calculation Initial Keyon Date Initial Exam Date Initial Exam Provider Initial Ultrasound Date Last Menstrual Period Date Ultra Sound Weeks Gestation 0 Eighteen To Twenty Week Keyon Update Ultra Sound Date Fundal Height At Umbil Quickening Date Ultra Sound Latest Weeks Gestation Final Keyon Confirmed By Final Keyon Confirmed Date Final Keyon Date Ultra Sound Latest Days Gestation 0 0 Menstrual History Last Menstrual Date Menses Monthly On Bcp Conception Prior Menses Frequency Hcg Plus Date Menarche Onset Age Delivery Information Delivery Date Delivery Type Labor Anesthesia Weeks Gestation Incision Type Labor Labor Length Hrs Delivered By Post Complications Tubal Sterilization Discharge Date Comments 8 4 Discharge Information Feeding Method Contraceptive Method Maternal HG B and HCT Levels
--- OUTSIDE RECORDS SUMMARY | 2024-09-17 09:52 | XMS_ITS | Encounter Summary ---
Author Organization [facility] Address [address] [place] [address] Care Team Providers Care Inventory Technician Name Role Phone Hayley Spear APRN Primary Care Provider Ozzy Saucedo MD Primary Care Provider [phone] Provider, [facility] Unavailable Unavailable [facility] Unavailable U navailable Juan A Suresh MD Primary Care Provider [phone] Encounter Details Date Type Department Care Team (Late st Contact Info) Description 05/19/2022 Orders Only [facility] [employer] [address] [place] [address] Toshia Galvez CNM Social History Tobacco Use Types Packs/Day Years Used Date Smoking Tobacco: Never Assessed Comments Unknown Sex and Gender Information Value Date Recorded Sex Assigned at Not on file Legal Sex Female 3:59 PM EDT Gender Identity Not on file Sexual Orientation Not on file documented as of this encounter Miscellaneous Notes * Result Encounter Note - Payal Wooten LPN - 05/19/2022 3:45 PM EDT HCG negative Patient seeing MD Arguello today FYI to CNM * Result Encounter Note - Payal Wooten LPN - 05/19/2022 3:45 PM EDT Patient seeing MD Arguello today FYI to ordering CNM documented in this encounter Plan of Treatment Not on file documented as of this encounter Procedures * Due to [place] state law, this organization might not be sharing negative HIV tests. Procedure Name Priority Date/Time Associated Diagnosis Comments CHLAMYDIA TRACHOMATIS/N. GONORRHOEAE (GC) RNA, TMA (URINE) Routine 05/19/2022 3:45 PM EDT Pelvic pain VENIPUNCTURE Routine 05/19/2022 3:45 PM EDT Pelvic pain documented in this encounter Results * Due to [place] [employer] law, this organization might not be sharing negative HIV tests. * CHLAMYDIA TRACHOMATIS/N. GONORRHOEAE (GC) RNA, TMA (URINE) (05/19/2022 3:45 PM EDT) Chlamydia trachomatis rRNA NOT DETECTED NOT DETECTED [facility] Neisseria Gonorrhoeae rRNA NOT DETECTED NOT DETECTED [facility] COMMENT SEE NOTE [facility] Comment: The analytical performance characteristics of this assay, when used to test SurePath(TM) specimens have been determined by [employer]. The modifications have not been cleared or approved by the FDA. This assay has been validated pursuant to the CLIA regulations and is used for clinical purposes. For additional information, please refer to https://education.[employer]/faq/HMY393 (This link is being provided for information/ educational purposes only.) 05/19/2022 3:45 PM EDT 05/19/2022 10:41 PM EDT Narrative Resulting Agency Comment [id number] Elena Arguello MD LABORATORY Final R esult Performing Organization Address City/State/[facility] Co de Phone Number [facility] [address] [place] [address] * HCG, TOTAL, QL (05/19/2022 3:45 PM EDT) HCG, Qualitative (Screen) NEGATIVE [facility] Comment: Reference Range Non-: Negative : ? Positive 05/19/2022 3:45 PM EDT 05/19/2022 10:41 PM EDT Narrative Resulting Agency Comment [id number] Elena Arguello MD LAB SAME DAY RESULT Fin al Result [facility] [address] [place] [address] documented in this encounter Visit Diagnoses Diagnosis Pelvic pain Reserved for inherently not codable concepts WITHOUT codable children documented in this encounter Care Teams Inventory Technician Relationship Specialty Start Date End Date Hayley Spear APRN [facility] [address] [place] [id number] PCP - General Geriatrics 05/12/22 12/06/22 Ozzy Saucedo MD [address] [place] [address] PCP - General Family Medicine 12/07/22 08/05/24 Provider, [facility] PCP - Backup PCP 12/09/22 Juan A Suresh MD [address] [facility] [place] [address] PCP - General 08/06/24 Padmini Patricia [facility] 04/01/23 07/30/23 documented as of this encounter
[2024-09-17] MEDS: Dextroamphetamine/Amphetamine XR 10 MG CAP.ER.24H 30 MG PO (11:01)
[2024-09-17 11:17] VITALS: BP 97/56; PULSE 95; RESP 18; TEMP 36.6; O2SAT 98
== END 2024-09-17 11:18 | disposition home or self-care (01) ==
PROVIDERS: Emergency Provider Emergency Medicine
DX: F90.9 Attention-deficit hyperactivity disorder, unspecified type (principal); Z79.899 Other long term (current) drug therapy; F43.10 Post-traumatic stress disorder, unspecified
CPT/HCPCS: 99283; 99284